=== PATIENT | male | born 1935 | race Caucasian/White ===

== ENCOUNTER → 2017-09-15 | Outpatient (CLI) | payer MEDICARE, BC | END | disposition home or self-care (01) | LOC: GMAJ 14:30 | PROVIDERS: ATTEND Family Medicine | DX: Z12.5 Encounter for screening for malignant neoplasm of prostate (principal) ==

== ENCOUNTER → 2017-12-10 | Outpatient (CLI) | payer MEDICARE, BC ==
--- NOTE | 2017-12-10 17:12 | MRI ---
EXAM DESCRIPTION: Lumbar Spine w/o Contrast : Magnetic Resonance Imaging. CLINICAL HISTORY: SPINAL STENOSIS WITH NEUROGENIC CLAUDICATION, LUMBAR AREA COMPARISON: Lumbar spine MRI 03/05/2008. TECHNIQUE: Multiplanar, multiple standard sequences, non contrast MRI, lumbar spine. FINDINGS: L5-S1: Disc desiccation and moderate posterior disc space loss. Grade 1 anterolisthesis. Bilateral foraminal stenosis and impingement of the exiting L5 nerves. This has progressed since the prior study. Advanced facet arthrosis bilaterally abutting the lateral thecal sac. Tiny posterior disc bulge. Bilateral L5 pars spondylolysis. Moderate canal narrowing. L4-5: Disc desiccation with posterior disc space narrowing. No significant bulge. Left facet arthrosis. Bilateral hypertrophied flavum ligaments. Moderate canal narrowing. Mild to moderate right foraminal narrowing with borderline left foraminal stenosis. L3-4: Disc desiccation anterior bulging. Posterior disc space loss with Modic type II endplate reactive changes in the midline and to the right of midline. Disc osteophyte complex resulting in right foraminal stenosis. Posterior disc osteophyte bulge 4 mm abutting the thecal sac. Bilateral facet arthrosis and flavum ligament hypertrophy and bilateral subarticular recess narrowing, abutting the bilateral descending L4 nerves. Mild canal stenosis. This has progressed since the prior study. L2-3: Disc desiccation anterior bulging anterior spurs and Modic type II endplate reactive changes. Posterior disc space narrowing and bulging disc osteophyte complex abutting the thecal sac more on the right. Bilateral facet arthrosis and ligament hypertrophy more on the left. Narrowing the bilateral subarticular recesses and abutting the bilateral descending L3 nerves. Mild canal stenosis. Progressed since the prior study. Left mild foraminal narrowing. Right side, Modic type II endplate reactive changes, disc osteophyte complex bulge into the foramen which is nearly stenotic and abutting the exiting right L2 nerve L1-2: Disc desiccation and disc space maintained. Tiny posterior bulge. Bilateral facet arthrosis and ligament hypertrophy. Bilateral mild to moderate foraminal narrowing. T12-L1: Disc desiccation anterior bulging and anterior Modic type II endplate reactive changes. Posterior disc bulge 3 mm abutting the thecal sac. Bilateral mild foraminal narrowing. Bilateral ligament hypertrophy and minimal facet arthrosis. Canal mildly narrow more on the left, due to hypertrophy ligaments. This is progressed since the prior study. Mild facet arthrosis. Conus terminates at this level.. L1-L4 levoscoliosis. Paravertebral soft tissues no muscular atrophy paraspinal muscles.. Normal marrow signal in the remaining vertebral bodies and the posterior elements. Vertebral bodies are not compressed at any level. IMPRESSION: 1. Grade 1 anterolisthesis L5-S1 with bilateral foraminal stenosis and impinging the exiting L5 nerves. This has progressed since the prior study. Bilateral L5 pars spondylolysis. 2. Borderline left foraminal stenosis at L4-5 which has progressed since the prior study, secondary to bulging disc and facet arthrosis. 3. Moderate spondylosis anteriorly at L3-4 and also to the right with right foraminal stenosis which is progressed since the prior study. Posterior midline disc osteophyte complex with mild canal stenosis subarticular recess narrowing and abutment of the descending L4 nerves. Progressed since the prior study. 4. Posterior disc osteophyte complex bulge at L2-3 abutting the thecal sac in the bilateral subarticular recesses and descending L3 nerves with mild canal stenosis. Progressed since prior study. Right side spondylosis and disc osteophyte complex abutting the exiting right L2 nerve with foramen nearly stenotic. 5. Posterior flavum ligament hypertrophy has progressed at T12-L1 level since the prior study with canal narrowing along with progressive posterior disc bulge. Electronically signed by: Edy Valdez MD 12/10/2017 5:11 PM CDT
== END ==
LOC: MRI 13:00
PROVIDERS: ATTEND Family Medicine
DX: M48.062 Spinal stenosis, lumbar region with neurogenic claudication (principal); M51.86 Other intervertebral disc disorders, lumbar region

== ENCOUNTER → 2018-02-07 | Outpatient (CLI) | payer MEDICARE, BC | LOC: GMAJS 18:19 | PROVIDERS: ATTEND Physician Assistant | DX: N39.0 Urinary tract infection, site not specified (principal) ==

== ENCOUNTER → 2018-05-16 | Outpatient (CLI) | payer MEDICARE, BC ==
--- NOTE | 2018-05-16 16:02 | MRI ---
EXAM DESCRIPTION: Brain w/o Contrast: MRI. CLINICAL HISTORY: DIZZINESS COMPARISON: None. TECHNIQUE: Multiplanar, high-field MRI unit, multiple diffusion sequences, multiple conventional sequences without contrast. FINDINGS: Bilateral confluent and multifocal hyperintense FLAIR and T2-weighted signal in the periventricular white matter and conroy-white matter junctions. Multifocal lesions are more peripheral. Relatively symmetric bilaterally. . No hemorrhage, no cerebral edema, no diffusion restriction.. Similar focus of hyperintense FLAIR signal in the posterior left basal ganglia. Normal signal in the brainstem and cerebellar hemispheres. No hemorrhage, no cerebral edema, no diffusion restriction.. Unusual focus of mixed signal in the extra-axial vertex near the junction of the right frontal and parietal lobes which is dark and blooming signal on the GRE images, hyperintense on T2 sequence, the B 1000 and SBO diffusion sequences, and mixed signal on FLAIR sequences. Concordance of the diffusion and non-diffusion sequences with no diffusion restriction. Cortical sulci, ventricles, and other CSF spaces, and the subdural spaces show age-related changes, and otherwise unremarkable, except as noted above. No effacement or displacement. No midline shift. No extra-axial hemorrhage. Unremarkable flow signal void in the major vessels of the [place], and the venous sinuses. IACs are symmetric bilaterally. Normal signal in the bilateral mastoid air cells. No mass effect in the bilateral cerebellopontine angles. Pituitary gland occupies lower half of the sella. Base of the cerebellar tonsils is above the foramen magnum. Minimal mucoperiosteal thickening diffusely in the paranasal sinuses. The bony calvarium is intact. IMPRESSION: 1. Age-related changes in the cortical conroy matter, and in the subcortical white matter and periventricular white matter along with cerebral microvascular disease. No hemorrhage, no cerebral edema, no diffusion restriction. 2. Questionable lesion possibly extra-axial in the vertex of the junction of the right frontal and right parietal lobes parasagittal. Possibly a vascular malformation. No hemorrhage or mass effect. 3. Diffusion restriction elsewhere is unremarkable with no evidence for acute or subacute infarction. 4. Minimal paranasal sinusitis. Electronically signed by: Edy Valdez MD 05/16/2018 4:00 PM [facility]
== END ==
LOC: MRI 10:35
PROVIDERS: ATTEND Family Medicine
DX: R42 Dizziness and giddiness (principal); J01.90 Acute sinusitis, unspecified

== ENCOUNTER → 2018-08-10 | Outpatient (CLI) | payer MEDICARE, BC ==
--- NOTE | 2018-08-11 11:36 | MRI ---
Study: MRI of the Right Hip. Indication: R10.31 Technique: Multiplanar, multi sequence MRI of the right hip was obtained without intravenous contrast. Comparison: None. Findings: No acute fracture or osteonecrosis of the right hip. Patchy areas of grade 3-4 chondral loss throughout the anterior superior and superior aspects of the acetabulum with areas of cortical remodeling and subchondral cystic change. Subtle grade 4 chondrosis and subchondral marrow change of the superomedial margin femoral head as well. Grade 3 chondral thinning throughout the remainder of the joint. Small joint line osteophyte. Degenerative tearing throughout the anterior superior and superior aspects of the right hip labrum. Tiny joint effusion. Lower lumbar disc disease. Prostatomegaly. Mild pubic symphysis osteoarthritis. No high-grade tear of the visualized hip tendons. At least moderate left hip osteoarthritis present. Impression: Moderate to severe right hip osteoarthritis with tiny joint effusion and labral tearing. No acute fracture or osteonecrosis. Prostatomegaly. Correlation with PSA recommended. Additional findings as above. Electronically signed by: Tan Pulliam MD 08/11/2018 11:33 AM [facility]
== END ==
LOC: MRI 14:06
PROVIDERS: ATTEND Family Medicine
DX: M16.11 Unilateral primary osteoarthritis, right hip (principal); M16.12 Unilateral primary osteoarthritis, left hip; N40.0 Benign prostatic hyperplasia without lower urinary tract symptoms; M51.36 Other intervertebral disc degeneration, lumbar region

== ENCOUNTER → 2018-10-12 | Outpatient (CLI) | payer MEDICARE, BC ==
--- NOTE | 2018-10-12 15:02 | MRI ---
EXAM DESCRIPTION: Brain w/oContrast CLINICAL HISTORY: DEMENTIA COMPARISON: Previous MRI of the brain May 16, 2018 TECHNIQUE: Non contrast MRI of the brain is performed according to our usual protocol including multiplanar multi sequence technique. FINDINGS: Sagittal T1 images show intact corpus callosum. Degenerative thickening of soft tissue around the dens mildly displaces the lower mandible and upper cervical cord posteriorly as on previous study. Normal pituitary gland with normal T1 appearance of the lucy and medulla and upper cervical cord. Normal signal intensity within the clivus and calvarium. Axial T2 fat sat images reveal preservation of intracranial vascular flow voids. Normal conroy matter T2 signal intensity. Large ventricles and sulci are consistent with age-related cerebral volume loss. The globes appear intact and symmetrical. No abnormal fluid signal in the paranasal sinuses, tympanic cavities or mastoid air cells. Axial flair images show confluent increased signal intensity in the white matter around the ventricles consistent with chronic microvascular ischemic changes. Few scattered punctate foci of similar nature in the subcortical white matter. Diffusion weighted images show decreased signal intensity in the right parasagittal high posterior frontal conroy matter lesion seen on previous study consistent with focal ischemia developing into gliosis. ADC mapping is faintly positive here as well. Axial T1 images show normal conroy-white matter differentiation. No high signal intensity hemorrhagic lesion of the brain parenchyma. No subdural hematoma. Axial susceptibility weighted images are negative for focal signal loss to suggest abnormal brain parenchymal calcification or hemosiderin deposition. IMPRESSION: No acute intracranial pathologic process. Resolving microvascular ischemic focus in the high right posterior frontal conroy matter. Senescent brain with chronic microvascular ischemic changes. Electronically signed by: Rick Reyes MD 10/12/2018 3:00 PM CDT
== END ==
LOC: MRI 13:00
PROVIDERS: ATTEND Family Medicine
DX: F03.90 Unspecified dementia, unspecified severity, without behavioral disturbance, psychotic disturbance, mood disturbance, and anxiety (principal); I67.82 Cerebral ischemia

== ENCOUNTER 2019-02-19 23:23 | Emergency (ER) | payer MEDICARE, BC ==
--- NOTE | 2019-02-20 00:03 | RAD ---
EXAM DESCRIPTION: XR Chest, 1 View CLINICAL HISTORY: 83 years Male unconscious TECHNIQUE: One view of the chest. COMPARISON: Correlation is made with the prior CT scan dated 07/17/2015. FINDINGS: The lungs are clear without focal consolidation, effusion, or pneumothorax. The aorta atherosclerosis again seen. The cardiomediastinal silhouette and central pulmonary vasculature are otherwise normal. Surgical clips in the neck. Eventration of the left hemidiaphragm. No acute osseous abnormalities. IMPRESSION: No acute cardiopulmonary abnormalities. Electronically signed by: Ana Levine MD 02/20/2019 12:02 AM CDT
[2019-02-20] MEDS: SODIUM CHLORIDE 0.9% (FLUSH) 10 ML SYG IV PRN (00:07)
[2019-02-20] MEDS: SODIUM CHLORIDE 0.9% 1000ML 1,000 ML IVS ONE (00:07)
--- NOTE | 2019-02-20 00:09 | CT ---
PROCEDURE: CT Head CLINICAL HISTORY: 83 years Male syncope TECHNIQUE: Contiguous axial CT images obtained through the brain without IV contrast. Coronal and sagittal reformatted images also provided. This exam was performed according to our department optimization program which includes automated exposure control, adjustment of the mA and/or kv according to patient size and/or use of iterative reconstruction technique. COMPARISON: Correlation is made with the prior MRI dated 10/12/2018. FINDINGS: There is no intracranial hemorrhage, extraaxial collection, or evidence of acute transcortical infarction. Patchy areas of low attenuation within the periventricular and subcortical white matter are most compatible with chronic microvascular disease. Stable moderate diffuse volume loss without mass effect or midline shift. Vascular calcifications are noted. No lesion of the skull base or calvarium is identified. The paranasal sinuses and mastoid air cells are clear. IMPRESSION: No acute intracranial abnormality. Patchy chronic microvascular changes and moderate diffuse volume loss. Electronically signed by: Ana Levine MD 02/20/2019 12:07 AM CDT
--- NOTE | 2019-02-20 00:20 | ED.PDOC ---
History of Present Illness - General Chief Complaint: Syncope/Near Syncope Stated Complaint: syncopal episode Time Seen by Provider: 02/19/19 23:36 - History of Present Illness Initial Comments: Pt says that all of a sudden he felt weak while talking and was standing so he sat down and then lie down on the floor , EMS was called and found out low blood pressure , started IVF , currently feeling better , no sob or chest pain or headaches or seizure or nausea or vomiting or fever or chills Allergies/Adverse Reactions: Allergies Hydrocodone Allergy (Verified 11/03/18 15:23) Penicillins Allergy (Verified 11/03/18 15:23) NSAIDs Adverse Reaction (Verified 11/03/18 15:23) Home Medications: Ambulatory Orders Chlordiazepoxide HCl 10 mg PO BID 11/03/18 Citalopram Hydrobromide [Celexa] 20 mg PO DAILY 11/03/18 Clonidine HCl 0.3 mg PO Q6H 11/03/18 Furosemide Tab [Lasix Tab] 40 mg PO QAM 11/03/18 Insulin Glargine [Lantus Solostar] 26 unit SC DAILY 11/03/18 Isosorbide Mononitrate [Isosorbide Mononitrate ER] 60 mg PO DAILY #30 tab 11/03/18 Levetiracetam 500 mg PO DAILY 11/03/18 Pravastatin Sodium 10 mg PO BEDTIME 11/03/18 Spironolactone 25 mg PO DAILY #30 tab 11/03/18 Clopidogrel Bisulfate 02/20/19 Donepezil Hydrochloride [Donepezil HCl] 02/20/19 Epinephrine (Anaphylaxis) [Epinephrine] 02/20/19 Memantine HCl 02/20/19 Nifedipine [Nifedipine ER] 60 mg PO 02/20/19 Olmesartan Medoxomil 02/20/19 Review of Systems - Review of Systems Constitutional: States: no symptoms reported EENTM: States: no symptoms reported Respiratory: States: no symptoms reported Cardiology: States: see HPI Gastrointestinal/Abdominal: States: see HPI Genitourinary: States: no symptoms reported Skin: States: no symptoms reported Neurological: States: weakness Endocrine: States: no symptoms reported Hematologic/Lymphatic: States: no symptoms reported All other Systems: Reviewed and Negative Past Medical History (General) - Patient Medical History Hx Cardiac Disorders: Yes Hx Congestive Heart Failure: Yes Hx Hypertension: Yes Hx Diabetes: Yes Hx Cancer: No Hx Hepatitis C: No - Vaccination History Hx Tetanus, Diphtheria Vaccination: No Hx Influenza Vaccination: Yes Hx Pneumococcal Vaccination: Yes - Social History Hx Tobacco Use: No Hx Chewing Tobacco Use: No Hx Alcohol Use: No Hx Substance Use: No Hx Substance Use Treatment: No Hx Depression: No - Activities of Daily Living Residential/Assisted Living (if applicable):: [facility] Physical Exam - Physical Exam General Appearance: Alert, Comfortable, Well Groomed, Well Hydrated, Well No urished Eyes, Ears, Nose, Throat Exam: PERRL/EOMI, normal ENT inspection, TMs normal Neck: non-tender, full range of motion, supple, normal inspection Cardiovascular/Respiratory: no M/R/G, irregularly irregular Gastrointestinal/Abdominal: non tender, soft, no organomegaly Back Exam: normal inspection, no CVA tenderness Mental Status: alert, oriented x 3 president ergonomic consulting Exam: normal hearing, normal speech, PERRL - No sensory or neuro deficit Skin Exam: normal color, warm/dry Lymphatic: no adenopathy Progress - Progress Progress: 02/20/19 00:22 02/19/19 23:29 Telemetry .ONCE B-TYPE NATRIURETIC PEPTIDE/BNP Stat CARDIAC PANEL,ER Stat HEPATIC FUNCTION PANEL Stat D-DIMER,QUANTITATIVE Stat EKG Stat Pulse Ox Stat 02/19/19 23:30 Pulse Oximetry Assessment DAILY 02/19/19 23:36 Sodium Chloride 0.9% (Flush) [Saline Flush Syringe] 10 ml IV PRN PRN 02/19/19 23:37 IV Care:Saline Lock per Protoc QSHIFT Pulse Ox Stat 02/19/19 23:38 Pulse Oximetry Assessment DAILY 02/19/19 23:39 Sodium Chloride 0.9% 1000ML [Ns 1000 ml] 1,000 ml IVS ONCE Laboratory Results - last 24 hr 02/19/19 23:29 WBC 7.2 RBC 4.83 Hgb 14.9 Hct 44.4 MCV 91.9 MCH 30.9 MCHC 33.7 RDW 13.8 Absolute Neuts (auto) 2.80 Absolute Lymphs (auto) 3.40 Absolute Monos (auto) 0.60 Absolute Eos (auto) 0.30 Absolute Basos (auto) 0.00 Neutrophils % 39.7 L Lymphocytes % 47.4 Monocytes % 7.9 Eosinophils % 4.6 Basophils % 0.4 Sodium 134 L Potassium 4.0 Chloride 104 Carbon Dioxide 21 Anion Gap 13.0 BUN 38 H Creatinine 2.02 H BUN/Creatinine Ratio 18.8 Random Glucose 186 H Serum Osmolality 282.1 Calcium 8.8 Magnesium 2.1 Total Bilirubin 0.4 Direct Bilirubin < 0.1 Indirect Bilirubin 0.3 AST 19 ALT 17 Alkaline Phosphatase 56 Creatine Kinase 84 CK-MB (CK-2) 8.1 H* CK-MB (CK-2) % Not Reportable Troponin I 0.49 H* B-Natriuretic Peptide 189.0 H Serum Total Protein 7.0 Albumin 3.7 - EKG/XRAY/CT EKG: Fibrillation, nonspecific ST T wave Chg Xray Comments: Normal . CT: Normal Departure - Departure Clinical Impression: Myocardial infarction Qualifiers: Myocardial infarction type: non-ST elevation myocardial infarction Qualified Code(s): I21.4 - Non-ST elevation (NSTEMI) myocardial infarction Time of Disposition: 00:26 Disposition: Transfer to Hospital Condition: Fair Departure Forms: ED Discharge - Pt. Copy, Patient Portal Self Enrollment Referrals: Mike Tolliver MD [Primary Care Provider] - 1-2 Weeks Home Medications: Ambulatory Orders Chlordiazepoxide HCl 10 mg PO BID 11/03/18 Citalopram Hydrobromide [Celexa] 20 mg PO DAILY 11/03/18 Clonidine HCl 0.3 mg PO Q6H 11/03/18 Furosemide Tab [Lasix Tab] 40 mg PO QAM 11/03/18 Insulin Glargine [Lantus Solostar] 26 unit SC DAILY 11/03/18 Isosorbide Mononitrate [Isosorbide Mononitrate ER] 60 mg PO DAILY #30 tab 11/03/18 Levetiracetam 500 mg PO DAILY 11/03/18 Pravastatin Sodium 10 mg PO BEDTIME 11/03/18 Spironolactone 25 mg PO DAILY #30 tab 11/03/18 Clopidogrel Bisulfate 02/20/19 Donepezil Hydrochloride [Donepezil HCl] 02/20/19 Epinephrine (Anaphylaxis) [Epinephrine] 02/20/19 Memantine HCl 02/20/19 Nifedipine [Nifedipine ER] 60 mg PO 02/20/19 Olmesartan Medoxomil 02/20/19 Transfer to Outside Facility - Transfer Information Accepting Provider:: Dr Wright Accepting Facility: [facility]
[2019-02-20] MEDS ORDERED: ENOXAPARIN SODIUM 80 MG/0.8 ML SYG SUBCU ONE (00:33)
[2019-02-20] MEDS ORDERED: ASPIRIN TABLET 325 MG TAB ONE (00:34)
[2019-02-20] MEDS: ASPIRIN (ENTERIC COATED) 325 MG TAB PO ONE (00:35)
[2019-02-20 01:08] VITALS: BP 118/70; TEMP 97; O2SAT 93
== END 2019-02-20 01:29 | disposition short-term general hospital (02) ==
LOC: ER 23:23
DX: I21.4 Non-ST elevation (NSTEMI) myocardial infarction (principal); R55 Syncope and collapse; I49.8 Other specified cardiac arrhythmias; I50.9 Heart failure, unspecified; I11.0 Hypertensive heart disease with heart failure; E11.9 Type 2 diabetes mellitus without complications; Z79.899 Other long term (current) drug therapy; Z88.5 Allergy status to narcotic agent; Z88.6 Allergy status to analgesic agent; Z88.0 Allergy status to penicillin; Z79.4 Long term (current) use of insulin
CPT/HCPCS: 70450; 71045; 80048; 80076; 82550; 82553; 83880; 84484; 85025; 85379; 85610; 85730; 93005; J1650; J7030

== ENCOUNTER 2019-02-23 18:59 | Observation (INO) | payer MEDICARE, BC ==
--- NOTE | 2019-02-23 19:49 | RAD ---
EXAM DESCRIPTION: Single view of the chest CLINICAL HISTORY: mild confusion COMPARISON: 02/19/2019 FINDINGS: Single frontal view of the chest. Cardiomediastinal silhouette: Normal size and contour. Lungs: Linear right basilar opacities likely representing subsegmental atelectasis. No pneumothorax or pleural effusion. Low lung volumes. Bones: No acute osseous abnormality. Postoperative change in the neck. Upper abdomen: No abnormality identified. IMPRESSION: 1. No acute pulmonary process identified. Electronically signed by: Bryant Bruner 02/23/2019 7:48 PM CDT
[2019-02-23] MEDS ORDERED: INSULIN LISPRO 100 UNITS/ML PEN SUBCU ONE (20:08)
[2019-02-23] MEDS ORDERED: SODIUM CHLORIDE 0.9% 1000ML 500 ML IVS ONE (20:10)
--- NOTE | 2019-02-23 20:22 | ED.PDOC ---
History of Present Illness - General Chief Complaint: General Stated Complaint: lethargic, BS elevated, altered Time Seen by Provider: 02/23/19 19:02 Source: patient Exam Limitations: no limitations - History of Present Illness Initial Comments: the patient is an 83-year-old male brought into the emergency room from his long-term care facility. He actually just arrived back there yesterday from [facility]. He had been sent to [facility] couple of days prior for a non-ST elevation myocardial infarction. He apparently did not get a catheterization. He is not really sure what they found on him. He was sent up here from the shelter secondary to some mild confusion and being very sleepy. He was also getting some elevated blood pressures there and his blood sugars were a little higher than normal in the 200s. No focal neurological changes. The patient has a flat affect and does appear depressed. He does have bruising from the blood thinner shots from the hospital stay. I see no evidence evidence of any definite catheterization site. He is not short of breath. He has not fallen. He does feel weak in general. Timing/Duration: unsure Severity: mild Improving Factors: nothing Worsening Factors: nothing Associated Symptoms: loss of appetite, malaise Allergies/Adverse Reactions: Allergies Hydrocodone Allergy (Verified 11/03/18 15:23) Penicillins Allergy (Verified 11/03/18 15:23) NSAIDs Adverse Reaction (Verified 11/03/18 15:23) Home Medications: Ambulatory Orders Chlordiazepoxide HCl 10 mg PO BID 11/03/18 Citalopram Hydrobromide [Celexa] 20 mg PO DAILY 11/03/18 Clonidine HCl 0.3 mg PO Q6H 11/03/18 Furosemide Tab [Lasix Tab] 40 mg PO QAM 11/03/18 Insulin Glargine [Lantus Solostar] 26 unit SC DAILY 11/03/18 Isosorbide Mononitrate [Isosorbide Mononitrate ER] 60 mg PO DAILY #30 tab 11/03/18 Levetiracetam 500 mg PO DAILY 11/03/18 Pravastatin Sodium 10 mg PO BEDTIME 11/03/18 Spironolactone 25 mg PO DAILY #30 tab 11/03/18 Clopidogrel Bisulfate 02/20/19 Donepezil Hydrochloride [Donepezil HCl] 02/20/19 Epinephrine (Anaphylaxis) [Epinephrine] 02/20/19 Memantine HCl 02/20/19 Nifedipine [Nifedipine ER] 60 mg PO 02/20/19 Olmesartan Medoxomil 02/20/19 Review of Systems - Review of Systems Constitutional: States: malaise, weakness - generalized EENTM: States: no symptoms reported Respiratory: States: no symptoms reported Cardiology: States: no symptoms reported Gastrointestinal/Abdominal: States: no symptoms reported Genitourinary: States: no symptoms reported Musculoskeletal: States: no symptoms reported Skin: States: no symptoms reported Neurological: States: see HPI Endocrine: States: no symptoms reported All other Systems: No Change from Baseline Past Medical History (General) - Patient Medical History Hx Cardiac Disorders: Yes Hx Congestive Heart Failure: Yes Hx Hypertension: Yes Hx Diabetes: Yes 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 Hx Hepatitis C: No Surgical History: other - Vaccination History Hx Tetanus, Diphtheria Vaccination: No Hx Influenza Vaccination: Yes Hx Pneumococcal Vaccination: Yes - Social History Hx Tobacco Use: No Hx Chewing Tobacco Use: No Hx Alcohol Use: No Hx Substance Use: No Hx Substance Use Treatment: No Hx Depression: No - Activities of Daily Living Residential/Assisted Living (if applicable):: [facility] Family Medical History - Family History Mother Family History: Unknown Living Status: Physical Exam - Physical Exam General Appearance: Alert, Comfortable, Frail, No apparent distress Eye Exam: bilateral normal Ears, Nose, Throat: hearing grossly normal - chronically decreased bilaterally, normal ENT inspection, normal pharynx Neck: non-tender Respiratory: lungs clear, normal breath sounds, no respiratory distress, no accessory muscle use Cardiovascular/Chest: normal peripheral pulses, no edema, other - regular rate. Irregular rhythm. 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 The patient has recently had a non-ST elevation myocardial infarction. The patient does have some mild hypertension and some moderate hyperglycemia. Blood pressures have improved with the patient relaxing. The patient did receive a dose of insulin for the hyperglycemia whiched to be followed. Cardiac enzymes here are essentially the same as several days ago which is not surprising. He is asymptomatic from a cardiac standpoint. He is going to be admitted for more widely enzymes to make sure there is no significant regression of cardiac disease. Tomorrow his phlebotomist lab assistant can be contacted to see what was done at [facility] and see what needs to be done in the near future for the patient. Admitting for continued care overnight. Mental status does appear to be clearing compared to what was described from the shelter. 02/23/19 20:34 day pelaez [id number] - Results/Orders Results/Orders: EKG shows atrial flutter that is rate controlled at 70 bpm. Normal R-wave progression. No obvious definitive ST segment or T-wave changes indicative of acute ischemia. EKG is essentially unchanged from 3 days prior. Chest x-ray shows no acute changes. No obvious fluid overload or new infiltrates. Laboratory Tests 02/23/19 02/23/19 02/23/19 19:27 19:27 19:27 WBC 7.1 RBC 4.89 Hgb 14.8 Hct 44.7 MCV 91.5 MCH 30.3 MCHC 33.2 RDW 14.1 Plt Count 253 MPV 8.5 Absolute Neuts (auto) 5.40 Absolute Lymphs (auto) 1.20 Absolute Monos (auto) 0.30 Absolute Eos (auto) 0.00 Absolute Basos (auto) 0.10 Neutrophils % 76.6 Lymphocytes % 17.0 L Monocytes % 4.9 Eosinophils % 0.6 L Basophils % 0.9 PT 9.9 INR 0.99 PTT (SP) 26.7 Sodium 137 Potassium 4.9 Chloride 105 Carbon Dioxide 23 Anion Gap 13.9 BUN 43 H Creatinine 2.49 H BUN/Creatinine Ratio 17.3 Random Glucose 293 H Serum Osmolality 295.5 H Lactic Acid Calcium 8.9 Magnesium 2.1 Total Bilirubin 0.5 AST 34 ALT 34 Alkaline Phosphatase 61 Creatine Kinase 61 CK-MB (CK-2) 6.4 H* CK-MB (CK-2) % Not Reportable Troponin I 0.48 H* B-Natriuretic Peptide 333.0 H* Serum Total Protein 7.4 Albumin 3.9 Globulin 3.5 Albumin/Globulin Ratio 1.1 Urine Color Urine Appearance Urine pH Ur Specific [place] Urine Protein Urine Glucose (UA) Urine Ketones Urine Blood Urine Nitrite Urine Bilirubin Urine Urobilinogen Ur Leukocyte Esterase Urine RBC Urine WBC Ur Epithelial Cells Urine Bacteria Hyaline Casts Urine Mucus 02/23/19 02/23/19 19:27 19:47 WBC RBC Hgb Hct MCV MCH MCHC RDW Plt Count MPV Absolute Neuts (auto) Absolute Lymphs (auto) Absolute Monos (auto) Absolute Eos (auto) Absolute Basos (auto) Neutrophils % Lymphocytes % Monocytes % Eosinophils % Basophils % PT INR PTT (SP) Sodium Potassium Chloride Carbon Dioxide Anion Gap BUN Creatinine BUN/Creatinine Ratio Random Glucose Serum Osmolality Lactic Acid 1.1 Calcium Magnesium Total Bilirubin AST ALT Alkaline Phosphatase Creatine Kinase CK-MB (CK-2) CK-MB (CK-2) % Troponin I B-Natriuretic Peptide Serum Total Protein Albumin Globulin Albumin/Globulin Ratio Urine Color Yellow Urine Appearance Clear Urine pH 5.0 Ur Specific [place] 1.015 Urine Protein Trace Urine Glucose (UA) 100 H Urine Ketones Negative Urine Blood Negative Urine Nitrite Negative Urine Bilirubin Negative Urine Urobilinogen 0.2 Ur Leukocyte Esterase Negative Urine RBC 0 Urine WBC 0-1 Ur Epithelial Cells 0 Urine Bacteria 0 Hyaline Casts 0-1 Urine Mucus Trace Departure - Departure Clinical Impression: Delirium, Generalized weakness, Lethargy Coronary artery disease Qualifiers: Coronary Disease-Associated Artery/Lesion type: unspecified vessel or lesion type [place] vs. transplanted heart: torres martinez heart Associated angina: without angina Qualified Code(s): I25.10 - Atherosclerotic heart disease of torres martinez coronary artery without angina pectoris Disposition: Admit Patient Condition: Fair Departure Forms: ED Discharge - Pt. Copy, Patient Portal Self Enrollment Referrals: Mike Tolliver MD [Primary Care Provider] - 1-2 Weeks Home Medications: Ambulatory Orders Chlordiazepoxide HCl 10 mg PO BID 11/03/18 Citalopram Hydrobromide [Celexa] 20 mg PO DAILY 11/03/18 Clonidine HCl 0.3 mg PO Q6H 11/03/18 Furosemide Tab [Lasix Tab] 40 mg PO QAM 11/03/18 Insulin Glargine [Lantus Solostar] 26 unit SC DAILY 11/03/18 Isosorbide Mononitrate [Isosorbide Mononitrate ER] 60 mg PO DAILY #30 tab 11/03/18 Levetiracetam 500 mg PO DAILY 11/03/18 Pravastatin Sodium 10 mg PO BEDTIME 11/03/18 Spironolactone 25 mg PO DAILY #30 tab 11/03/18 Clopidogrel Bisulfate 02/20/19 Donepezil Hydrochloride [Donepezil HCl] 02/20/19 Epinephrine (Anaphylaxis) [Epinephrine] 02/20/19 Memantine HCl 02/20/19 Nifedipine [Nifedipine ER] 60 mg PO 02/20/19 Olmesartan Medoxomil 02/20/19 Decision To Admit - Decistion To Admit Decision to Admit Reason: Medical Nature Decision to Admit Date: 02/23/19 Decision to Admit Time: 20:33
[2019-02-23] MEDS ORDERED: NITROGLYCERIN 0.4 MG 25 EA TAB SL PRN (22:29)
[2019-02-23] MEDS ORDERED: MORPHINE SULFATE INJ 10 MG/ML VIAL IV PRN (22:29)
[2019-02-23] MEDS ORDERED: ACETAMINOPHEN 325 MG TAB PO PRN (22:29)
[2019-02-23] MEDS ORDERED: SODIUM CHLORIDE 0.9% (FLUSH) 10 ML SYG IV PRN (22:29)
[2019-02-23] MEDS ORDERED: IV SET AND CAP CHANGE INJ INJ SCH (22:30)
[2019-02-23] MEDS ORDERED: DEXTROSE 50% 25 GM/50 ML SYG IV PRN (22:36)
[2019-02-23] MEDS ORDERED: GLUCAGON INJ 1 MG VIAL SUBCU PRN (22:36)
[2019-02-24 05:53] VITALS: BP 184/81; TEMP 98
[2019-02-24] MEDS ORDERED: PANTOPRAZOLE SODIUM TAB 40 MG PO SCH (06:30)
[2019-02-24] MEDS ORDERED: INSULIN LISPRO 100 UNITS/ML PEN SUBCU SCH (07:00)
[2019-02-24] MEDS ORDERED: SODIUM CHLORIDE 0.9% (FLUSH) 10 ML SYG IV SCH (09:00)
[2019-02-24] MEDS ORDERED: APIXABAN 5 MG TAB PO SCH (09:30)
[2019-02-24] MEDS ORDERED: CITALOPRAM HBR 20 MG TAB PO SCH (09:30)
[2019-02-24] MEDS ORDERED: ISOSORBIDE MONONITRATE (IMDUR) 30 MG TAB PO SCH (09:30)
[2019-02-24] MEDS ORDERED: FUROSEMIDE 40 MG TAB PO SCH (09:30)
[2019-02-24] MEDS ORDERED: DONEPEZIL HCL 5 MG TAB PO SCH (09:30)
[2019-02-24] MEDS ORDERED: amLODIPine BESYLATE 5 MG TAB PO SCH (09:30)
[2019-02-24] MEDS ORDERED: MEMANTINE 10 MG TAB PO SCH (09:30)
[2019-02-24] MEDS ORDERED: CARVEDILOL 12.5 MG TAB PO SCH (09:30)
[2019-02-24] MEDS ORDERED: SPIRONOLACTONE 25 MG TAB PO SCH (09:30)
[2019-02-24] MEDS ORDERED: levETIRAcetam 250 MG TAB PO SCH (09:30)
--- NOTE | 2019-02-24 11:16 | SSS ---
SUPERVISING PHYSICIAN: Mike Tolliver MD DATE OF ADMISSION: 02/23/19 DATE OF DISCHARGE: 02/24/19 DISCHARGE DIAGNOSIS: 1. Change in mental status. 2. Recent non-ST elevation myocardial infarction. He was just discharged from [facility] on 02/22/2019 where he received intervention. He continues to have an elevated troponin, but no current chest pain. 3. Chronic renal insufficiency with a baseline creatinine of 1.8. His admitting creatinine was 2.4 and today it is 1.99. 4. Diabetes mellitus, type 2. 5. Mild dementia. 6. Hypertension. HISTORY OF PRESENT ILLNESS: This is an 83-year-old male patient who was just discharged from [facility] on 02/22/19 for a non-STEMI. He had been sent to [facility] on 02/19/19 and was re-admitted back to [facility] after that. Over the next 24 hours, there was a noticeable change in mental status. He became lethargic with some elevated blood pressures and blood sugars. It was reported that there were no focal neurologic changes, but he had a flat affect and was depressed. It is to be noted that his approximately 4 or 5 months ago. In the Emergency Room, his initial vital signs showed temperature 97.2, heart rate 62, blood pressure 175/83, respiratory rate 16, O2 saturation 97% on room air. His labs showed an unremarkable CBC with electrolytes within normal limits. BUN 43, creatinine 2.49, lactic acid 1.1. Liver enzymes were within normal limits. Troponin was 0.48 with CK-MB of 6.4 and BNP 333. Urinalysis was unremarkable. Chest x-ray shows no acute pulmonary process identified. There were no changes on his EKG. The patient had no complaints of chest pain. I was called for a 24 hour observation admission. PAST MEDICAL HISTORY: 1. Chronic renal insufficiency with a baseline creatinine of about 1.8. 2. Skin cancer with removals. 3. Chronic constipation. 4. Diabetes mellitus, type 2. 5. Hyperlipidemia. 6. Hypertension. 7. Mild dementia. PAST SURGICAL HISTORY: 1. Multiple skin cancer removals. OUTPATIENT MEDICATIONS: 1. Acetaminophen. 2. Aspirin. 3. Cetirizine. 4. Clonidine. 5. Epinephrine. 6. Lantus insulin. 7. Humalog insulin. 8. Nitroglycerin. 9. Olmesartan. 10. Amlodipine. 11. Eliquis. 12. Carvedilol. 13. Celexa. 14. Donepezil. 15. Furosemide. 16. Isosorbide mononitrate. 17. Levetiracetam. 18. Memantine. 19. Spironolactone. ALLERGIES: NO KNOWN DRUG ALLERGIES. SOCIAL HISTORY: He lives at [facility]. He is recently . He denies any smoking, drinking or illicit drug use. REVIEW OF SYSTEMS: Negative except as per history of present illness. PHYSICAL EXAMINATION: GENERAL: This is an 83-year-old male patient sitting up in his hospital bed. He is in no acute distress. HEENT: Normocephalic, atraumatic. Pupils are equal and reactive. Oropharynx is clear. NECK: Supple without mass. RESPIRATORY: Essentially clear to auscultation bilaterally. CHEST: There is equal rise and fall of the chest with inspiration and expiration. CARDIOVASCULAR: Regular rate and rhythm. GASTROINTESTINAL: Abdomen is soft, nondistended, nontender. Bowel sounds are positive. EXTREMITIES: No cyanosis, clubbing or edema. NEUROLOGIC: Awake, alert and oriented times three. Cranial nerves II-XII are grossly intact. SKIN: Warm and dry. He does have some bruising from previous hospital stay. LABORATORY: Labs and films are as per history of present illness. HOSPITAL COURSE: The patient was placed in observation in the hospital. He had no further complaints of chest pain, shortness of breath, nausea or vomiting. There was no diaphoresis. There were no changes on his EKG. His neuro checks remained stable. His cardiac enzymes slowly and marginally improved, but they did improve and he will be discharged back to [facility] today. DISCHARGE PLAN: The patient will be discharged to [facility] today in stable condition. He is to resume his previous diet and increase his activity as tolerated. It would be helpful to get a physical therapy referral. He is to followup with Dr. Michaels within one to two weeks. He is to resume his previous medications. There have been no medications changed or added. He is to call Dr. Michaels's office or return to the hospital for any problems or complications. DISCHARGE MEDICATIONS: 1. Levetiracetam. 2. Lantus insulin. 3. Lasix. 4. Clonidine. 5. Celexa. 6. Isosorbide mononitrate. 7. Spironolactone. 8. Olmesartan. 9. Memantine. 10. Epinephrine. 11. Donepezil. 12. Cetirizine. 13. Eliquis. 14. Nitroglycerin. 15. Humalog insulin. 16. Coreg. 17. Aspirin. 18. Amlodipine. 19. Acetaminophen. #[id number] [facility]
[2019-02-24 11:17] VITALS: O2SAT 93
== END 2019-02-24 09:45 | disposition home or self-care (01) ==
LOC: ER 18:59 → MS 21:50
PROVIDERS: ADMIT Nurse Practitioner Acute Care; ATTEND Nurse Practitioner Acute Care
DX: R41.82 Altered mental status, unspecified (principal); I21.4 Non-ST elevation (NSTEMI) myocardial infarction; E11.65 Type 2 diabetes mellitus with hyperglycemia; I12.9 Hypertensive chronic kidney disease with stage 1 through stage 4 chronic kidney disease, or unspecified chronic kidney disease; E11.22 Type 2 diabetes mellitus with diabetic chronic kidney disease; N18.9 Chronic kidney disease, unspecified; F03.90 Unspecified dementia, unspecified severity, without behavioral disturbance, psychotic disturbance, mood disturbance, and anxiety; I25.10 Atherosclerotic heart disease of native coronary artery without angina pectoris; E78.5 Hyperlipidemia, unspecified; Z79.82 Long term (current) use of aspirin; Z79.4 Long term (current) use of insulin; Z79.01 Long term (current) use of anticoagulants; Z79.02 Long term (current) use of antithrombotics/antiplatelets; Z79.899 Other long term (current) drug therapy; Z85.828 Personal history of other malignant neoplasm of skin; Z63.4 Disappearance and death of family member; Z88.5 Allergy status to narcotic agent; Z88.0 Allergy status to penicillin; Z88.6 Allergy status to analgesic agent
CPT/HCPCS: 96372 ×2; J1815 ×2; 82553 ×3; 80053 ×2; 82948; 80061; 36415 ×3; 81001; 85025 ×2; 82550 ×3; 83735 ×2; 85730; 85610; 84484 ×3; 83880; 36416; 83605; 71045; 94760 ×2; 99285; 93005 ×3

== ENCOUNTER 2019-03-02 05:56 | Observation (INO) | payer MEDICARE, BC ==
--- NOTE | 2019-03-02 06:30 | ED.PDOC ---
History of Present Illness - General Source: patient, RN notes reviewed, Vital Signs reviewed, EMS notes reviewed Exam Limitations: no limitations - History of Present Illness Initial Comments: Pt sent from [facility] because the pt became agitated and was "talking to people who weren't there". Pt c/o right shoulder pain. Pt denies fall/fever/chills. No n/v/d/dizziness/MAC. Timing/Duration: 1-3 hours Severity: moderate Improving Factors: nothing Worsening Factors: nothing Associated Symptoms: denies symptoms <Boo Rosales - Last Filed: 03/02/19 06:35> <MARCUS WILLIAM - Last Filed: 03/02/19 10:28> - General Chief Complaint: Neuro Symptoms/Deficits Stated Complaint: delusional- "seeing people" Time Seen by Provider: 03/02/19 06:25 - History of Present Illness Allergies/Adverse Reactions: Allergies Hydrocodone Allergy (Verified 11/03/18 15:23) Penicillins Allergy (Verified 11/03/18 15:23) NSAIDs Adverse Reaction (Verified 11/03/18 15:23) Home Medications: Ambulatory Orders Citalopram Hydrobromide [Celexa] 20 mg PO DAILY 11/03/18 Clonidine HCl 0.3 mg PO Q6H PRN 11/03/18 Furosemide Tab [Lasix Tab] 20 mg PO QAM 11/03/18 Insulin Glargine [Lantus Solostar] 20 unit SC BEDTIME 11/03/18 Isosorbide Mononitrate [Isosorbide Mononitrate ER] 60 mg PO DAILY #30 tab 11/03/18 Levetiracetam 500 mg PO DAILY 11/03/18 Spironolactone 25 mg PO DAILY #30 tab 11/03/18 Donepezil Hydrochloride [Donepezil HCl] 10 mg PO DAILY 02/20/19 Epinephrine (Anaphylaxis) [Epinephrine] 0.3 mg IM Q12HR PRN 02/20/19 Memantine HCl 5 mg PO BID 02/20/19 Olmesartan Medoxomil 20 mg PO BID 02/20/19 Acetaminophen [Tylenol] 650 mg PO Q6HR PRN 02/23/19 Amlodipine Besylate 10 mg PO DAILY 02/23/19 Apixaban [Eliquis] 2.5 mg PO BID 02/23/19 Aspirin [Aspirin Low Strength] 81 mg PO DAILY 02/23/19 Carvedilol [Coreg] 12.5 mg PO BID 02/23/19 Cetirizine HCl 5 mg PO BEDTIME 02/23/19 Insulin Lispro [Humalog Kwikpen] See Protocol SC ACHS 02/23/19 Insulin Lispro [Humalog] 6 unit SUBCU TID 02/23/19 Nitroglycerin 0.4 mg Tab [Nitrostat] 0.4 mg SL Q5MIN PRN 02/23/19 Review of Systems - Review of Systems Constitutional: States: no symptoms reported, see HPI EENTM: States: no symptoms reported, see HPI Respiratory: States: no symptoms reported, see HPI Cardiology: States: no symptoms reported. Denies: chest pain, palpitations Gastrointestinal/Abdominal: States: no symptoms reported, see HPI Genitourinary: States: no symptoms reported, see HPI. Denies: dysuria, frequency Musculoskeletal: States: joint pain - right shoulder Skin: States: no symptoms reported Neurological: States: no symptoms reported Unable to Obtain Due To: other - pt with hx of dementia. All other Systems: Reviewed and Negative <Boo Rosales - Last Filed: 03/02/19 06:35> Past Medical History (General) - Patient Medical History Hx Seizures: No Hx Stroke: No Hx Asthma: No Hx of COPD: No Hx Cardiac Disorders: Yes Hx Congestive Heart Failure: Yes Hx Pacemaker: No Hx Hypertension: Yes Hx Diabetes: Yes 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 Hx Hepatitis C: No Hx MRSA: No Surgical History: other - Vaccination History Hx Tetanus, Diphtheria Vaccination: No Hx Influenza Vaccination: Yes Hx Pneumococcal Vaccination: Yes - Social History Hx Tobacco Use: No Hx Chewing Tobacco Use: No Hx Alcohol Use: No Hx Substance Use: No Hx Substance Use Treatment: No Hx Depression: No Hx Physical Abuse: No Hx Emotional Abuse: No - Activities of Daily Living Assisted/Assisted Living (if applicable):: [facility] <Boo Rosales - Last Filed: 03/02/19 06:35> Family Medical History - Family History Mother Family History: Unknown Living Status: <Boo Rosales - Last Filed: 03/02/19 06:35> Physical Exam - Physical Exam General Appearance: Comfortable, Well Developed, Well Groomed, Well Hydrated, Well Nourished Eye Exam: bilateral normal Ears, Nose, Throat: hearing grossly normal, normal ENT inspection, normal pharynx Neck: non-tender, full range of motion, supple, normal inspection Respiratory: chest non-tender, lungs clear, normal breath sounds, no respiratory distress, no accessory muscle use Cardiovascular/Chest: normal peripheral pulses, regular rate, rhythm, no edema, irregularly irregular Gastrointestinal/Abdominal: normal bowel sounds, non tender Back Exam: no vertebral tenderness Extremity: other - Pt with TTP of right shoulder. 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 non spec st-t changes, abnl ekg <Boo Rosales - Last Filed: 03/02/19 06:35> - Progress Progress: 03/02/19 09:25 D/w daughter, Kaelyn Martin , her father's case. She indicates pt was admitted [place] earlier this month. Pt was eval'd by cardiology. Pt had EF of 35%. Considering age and PMHx pt was medical management only. Kaelyn says that pt's mental status is worse than usual today. Pt has had hallucinations, but definitely seems more confused and agitated than usual. She also says that she has some concerns about pt going back to [place] in this state. 03/02/19 10:13 CT Head reviewed - preliminary no hemorrhage, no shift, senescent changes. - Results/Orders Results/Orders: Laboratory Results - last 24 hr 03/02/19 03/02/19 03/02/19 05:15 Unknown Unknown WBC 5.6 RBC 4.60 L Hgb 13.8 L Hct 42.5 MCV 92.4 MCH 30.1 MCHC 32.6 L RDW 14.3 Plt Count 260 MPV 8.9 Absolute Neuts (auto) 3.60 Absolute Lymphs (auto) 1.20 Absolute Monos (auto) 0.50 Absolute Eos (auto) 0.20 Absolute Basos (auto) 0.10 Neutrophils % 64.3 Lymphocytes % 22.2 Monocytes % 9.2 H Eosinophils % 3.3 Basophils % 1.0 Sodium 139 Potassium 4.6 Chloride 110 Carbon Dioxide 19 L Anion Gap 14.6 BUN 41 H Creatinine 2.08 H BUN/Creatinine Ratio 19.7 Random Glucose 251 H Serum Osmolality 296.1 H Calcium 8.7 Total Bilirubin 0.5 AST 15 ALT 17 Alkaline Phosphatase 62 Troponin I Serum Total Protein 7.2 Albumin 3.6 Globulin 3.6 H Albumin/Globulin Ratio 1.0 L Lipase 77 H Urine Color Yellow Urine Appearance Sl cloudy Urine pH 5.0 Ur Specific Merrill 1.025 Urine Protein 100 H Urine Glucose (UA) Negative Urine Ketones Trace Urine Blood Negative Urine Nitrite Negative Urine Bilirubin Negative Urine Urobilinogen 0.2 Ur Leukocyte Esterase Negative Urine RBC 0-1 Urine WBC 0-1 Ur Epithelial Cells 0-1 Amorphous Sediment 3+ Urine Bacteria 1+ 03/02/19 Unknown WBC RBC Hgb Hct MCV MCH MCHC RDW Plt Count MPV Absolute Neuts (auto) Absolute Lymphs (auto) Absolute Monos (auto) Absolute Eos (auto) Absolute Basos (auto) Neutrophils % Lymphocytes % Monocytes % Eosinophils % Basophils % Sodium Potassium Chloride Carbon Dioxide Anion Gap BUN Creatinine BUN/Creatinine Ratio Random Glucose Serum Osmolality Calcium Total Bilirubin AST ALT Alkaline Phosphatase Troponin I 0.35 H* Serum Total Protein Albumin Globulin Albumin/Globulin Ratio Lipase Urine Color Urine Appearance Urine pH Ur Specific Merrill Urine Protein Urine Glucose (UA) Urine Ketones Urine Blood Urine Nitrite Urine Bilirubin Urine Urobilinogen Ur Leukocyte Esterase Urine RBC Urine WBC Ur Epithelial Cells Amorphous Sediment Urine Bacteria EXAM DESCRIPTION: Chest,1 View CLINICAL HISTORY: unwitnessed fall COMPARISON: 09/08/2018 FINDINGS: Single frontal view of the chest. Cardiomediastinal silhouette: Cardiac megaly. Prior median sternotomy. Atherosclerotic vascular calcification. Lungs: Diffuse bilateral interstitial and alveolar opacities. No pneumothorax. Bones: No acute osseous abnormality. Upper abdomen: Postoperative change in the epigastric region. IMPRESSION: 1. Cardiomegaly with diffuse bilateral interstitial and alveolar opacities concerning for pulmonary edema. Electronically signed by: Bryant Bruner 03/02/2019 5:36 AM CDT <MARCUS WILLIAM - Last Filed: 03/02/19 10:28> Departure <Boo Rosales - Last Filed: 03/02/19 06:35> <MARCUS WILLIAM - Last Filed: 03/02/19 10:28> - Departure Clinical Impression: Abnormal x-ray Altered mental status Qualifiers: Altered mental status type: unspecified Qualified Code(s): R41.82 - Altered mental status, unspecified Chronic kidney failure Qualifiers: Chronic kidney disease stage: unspecified stage Qualified Code(s): N18.9 - Chronic kidney disease, unspecified Dementia Qualifiers: Dementia type: unspecified type Dementia behavioral disturbance: with behavioral disturbance Qualified Code(s): F03.91 - Unspecified dementia with behavioral disturbance Congestive heart failure Qualifiers: Heart failure type: unspecified Heart failure chronicity: unspecified Qualified Code(s): I50.9 - Heart failure, unspecified Disposition: Admit Patient Condition: Fair Departure Forms: ED Discharge - Pt. Copy, Patient Portal Self Enrollment Referrals: Mike Tolliver MD [Primary Care Provider] - 1-2 Weeks Home Medications: Ambulatory Orders Citalopram Hydrobromide [Celexa] 20 mg PO DAILY 11/03/18 Clonidine HCl 0.3 mg PO Q6H PRN 11/03/18 Furosemide Tab [Lasix Tab] 20 mg PO QAM 11/03/18 Insulin Glargine [Lantus Solostar] 20 unit SC BEDTIME 11/03/18 Isosorbide Mononitrate [Isosorbide Mononitrate ER] 60 mg PO DAILY #30 tab 11/03/18 Levetiracetam 500 mg PO DAILY 11/03/18 Spironolactone 25 mg PO DAILY #30 tab 11/03/18 Donepezil Hydrochloride [Donepezil HCl] 10 mg PO DAILY 02/20/19 Epinephrine (Anaphylaxis) [Epinephrine] 0.3 mg IM Q12HR PRN 02/20/19 Memantine HCl 5 mg PO BID 02/20/19 Olmesartan Medoxomil 20 mg PO BID 02/20/19 Acetaminophen [Tylenol] 650 mg PO Q6HR PRN 02/23/19 Amlodipine Besylate 10 mg PO DAILY 02/23/19 Apixaban [Eliquis] 2.5 mg PO BID 02/23/19 Aspirin [Aspirin Low Strength] 81 mg PO DAILY 02/23/19 Carvedilol [Coreg] 12.5 mg PO BID 02/23/19 Cetirizine HCl 5 mg PO BEDTIME 02/23/19 Insulin Lispro [Humalog Kwikpen] See Protocol SC ACHS 02/23/19 Insulin Lispro [Humalog] 6 unit SUBCU TID 02/23/19 Nitroglycerin 0.4 mg Tab [Nitrostat] 0.4 mg SL Q5MIN PRN 02/23/19 Decision To Admit - Decistion To Admit Decision to Admit Date: 03/02/19 Decision to Admit Time: 10:27 <MARCUS WILLIAM - Last Filed: 03/02/19 10:28> Addendum entered and electronically signed by MARCUS WILLIAM 03/02/19 13:55: Departure - Departure Clinical Impression: Abnormal x-ray Altered mental status Qualifiers: Altered mental status type: unspecified Qualified Code(s): R41.82 - Altered mental status, unspecified Chronic kidney failure Qualifiers: Chronic kidney disease stage: unspecified stage Qualified Code(s): N18.9 - Chronic kidney disease, unspecified Dementia Qualifiers: Dementia type: unspecified type Dementia behavioral disturbance: with behavioral disturbance Qualified Code(s): F03.91 - Unspecified dementia with behavioral disturbance Congestive heart failure Qualifiers: Heart failure type: unspecified Heart failure chronicity: unspecified Qualified Code(s): I50.9 - Heart failure, unspecified Disposition: Admit Patient Condition: Fair Home Medications: Ambulatory Orders Citalopram Hydrobromide [Celexa] 20 mg PO BEDTIME 11/03/18 Clonidine HCl 0.3 mg PO Q6H PRN 11/03/18 Furosemide Tab [Lasix Tab] 20 mg PO QAM 11/03/18 Insulin Glargine [Lantus Solostar] 20 unit SC BEDTIME 11/03/18 Isosorbide Mononitrate [Isosorbide Mononitrate ER] 60 mg PO DAILY #30 tab 11/03/18 Levetiracetam 500 mg PO BEDTIME 11/03/18 Spironolactone 25 mg PO DAILY #30 tab 11/03/18 Donepezil Hydrochloride [Donepezil HCl] 10 mg PO DAILY 02/20/19 Epinephrine (Anaphylaxis) [Epinephrine] 0.3 mg IM Q12HR PRN 02/20/19 Memantine HCl 5 mg PO BID 02/20/19 Olmesartan Medoxomil 20 mg PO BID 02/20/19 Acetaminophen [Tylenol] 650 mg PO Q6HR PRN 02/23/19 Amlodipine Besylate 10 mg PO DAILY 02/23/19 Apixaban [Eliquis] 2.5 mg PO BID 02/23/19 Aspirin [Aspirin Low Strength] 81 mg PO DAILY 02/23/19 Carvedilol [Coreg] 12.5 mg PO BID 02/23/19 Cetirizine HCl 5 mg PO BEDTIME 02/23/19 Insulin Lispro [Humalog Kwikpen] See Protocol [place] ACHS 02/23/19 Insulin Lispro [Humalog] 6 unit SUBCU TID 02/23/19 Nitroglycerin 0.4 mg Tab [Nitrostat] 0.4 mg SL Q5MIN PRN 02/23/19 Calcitriol 0.25 mcg PO MOWEFR 03/02/19 ED Addendum - ED Addendum Addendum: 03/02/19 1354 Notified by hospitalist that xray imported into chart not pt's cxr. I reviewed cxr in viewer. I saw final interpretation which stated that pt had nonacute cxr. Since chart signed, there is no way to edit chart. Please note that cxr nonacute and admission dx of abnormal cxr incorrect.
[2019-03-02] MEDS ORDERED: ASPIRIN (CHEWABLE) 81 MG TAB PO ONE (07:03)
[2019-03-02] MEDS ORDERED: NITROGLYCERIN 2% 1 GM UD TOP ONE ×2 (07:03→07:04)
[2019-03-02] MEDS ORDERED: ASPIRIN (CHEWABLE) 81 MG TAB ONE (07:03)
--- NOTE | 2019-03-02 07:07 | RAD ---
Study: 3 View Right Shoulder Indication: shoulder pain Comparison: None. Impression: A.C. and glenohumeral joint alignment normal without acute fracture or dislocation. 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 Mild cortical remodeling greater tuberosity. Mild subluxation humeral head indicating rotator cuff tendon tearing. Osteopenia. If this is a new finding, DEXA scan recommended as well as evaluation for possible osteoporosis treatment. Electronically signed by: Tan Pulliam MD 03/02/2019 7:06 AM CDT
--- NOTE | 2019-03-02 08:51 | RAD ---
EXAM DESCRIPTION: Chest,1 View CLINICAL HISTORY: 83 years Male, chest discomfort COMPARISON: Previous study February 23, 2019 TECHNIQUE: AP portable chest. FINDINGS: Heart size is prominent with normal pulmonary vascularity. Surgical clips in lower neck. No consolidating infiltrate. No pulmonary mass or worrisome nodule. Nodular density over the right lower lung zone is thought to be a nipple shadow. No pneumothorax or pleural effusion. Bones are unremarkable. IMPRESSION: No acute process is identified in the chest. Electronically signed by: Rick Reyes MD 03/02/2019 8:50 AM CDT
--- NOTE | 2019-03-02 10:15 | CT ---
EXAM DESCRIPTION: Head CLINICAL HISTORY: 83 years Male, AMS COMPARISON: CT head 02/19/2019 TECHNIQUE: Axial images obtained from the skull base to the vertex without intravenous contrast with images. Coronal and sagittal reformations provided. This exam was performed according to our departmental dose-optimization program, which includes automated exposure control, adjustment of the mA and/or kV according to patient size and/or use of iterative reconstruction technique. Time Last Seen Well (If known) for Code Stroke: n/a FINDINGS: Brain Parenchyma, ventricles, meninges, and extra-axial spaces: Moderate generalized cerebral volume loss. Nonspecific moderate white matter hypodensities in the cerebral hemispheres likely related to ischemic small vessel disease. Possible difficulty differentiating a small acute infarction given these hypodensities. Chronic encephalomalacia within the medial posterior left parietal lobe. No acute intracranial hemorrhage. No abnormal extra-axial fluid collection. Vascular: Atherosclerosis is within the carotid siphons and vertebral arteries. Calvarium, paranasal sinuses, mastoids, and orbits: Calvarium intact. Visualized paranasal sinuses and mastoid air cells clear. Orbits unremarkable. IMPRESSION: 1. No acute intracranial abnormality. Of note, CT is relatively insensitive when compared to MRI for evaluation of acute ischemic infarction. 2. Chronic encephalomalacia within the medial posterior left parietal lobe. 3. Senescent changes. Electronically signed by: Harley Amezquita MD 03/02/2019 10:13 AM CDT
--- NOTE | 2019-03-02 10:48 | HP ---
SUPERVISING PHYSICIAN: Eriberto Ivey M.D. CHIEF COMPLAINT: Acute mental status change. HISTORY OF PRESENT ILLNESS: Mr. Ross is an 83 year-old male patient that resides at [facility]. He presented to the [facility] today at the request of the facility due to the fact that the patient was having hallucinations and acute mental status change. He was not "himself." He does have a history of recently being admitted here for the same thing, mental status change and a recent non-ST elevation myocardial infarction where he had been discharged on 02/22/19 from [facility], and continues to have an elevated troponin. His workup in the [facility] showed he had a normal white count at 5,600 without a left shift. Chemistries were showing normal electrolytes with a BUN 41, creatinine 2.0. The patient does have a history of renal insufficiency with baseline creatinine levels of about 1.8. His serum osmolality was also elevated at 296. Liver functions were all within normal limits. Troponin was 0.35 which is down from previous weeks of 0.43. BNP was only slightly elevated at 154. Urinalysis was within normal limits except for 100 of protein. The patient does have severe dementia and is not able to provide any history, but his daughter is at the bedside and is very knowledgeable of the patient's history. His vital signs are showing that he was hemodynamically stable with a temperature of 98.1, pulse 62, blood pressure 150/81, satting 98% on room air. Chest x-ray showed no acute process identified within the chest. He also had a CT of the head without contrast. The CT findings per radiology interpretation showed no acute intracranial abnormalities, just chronic encephalomalacia changes within the medial posterior left parietal lobe. His 12-lead EKG showed to be without any ST or T wave changes to indicate acute ischemia or injury pattern, just heart atrial flutter. Atrial flutter is chronic for the patient but the patient is on chronic anticoagulation with Eliquis. Given the patient's acute mental status change and elevated troponin, and no obvious source of his etiology of his change in his mental status, the [facility] physician requested the patient be placed in observation for close telemetry, neurological monitoring and further evaluation. PAST MEDICAL HISTORY: 1. Chronic renal insufficiency with a baseline creatinine of about 1.8. 2. Skin cancer with multiple removals. 3. Chronic constipation. 4. Diabetes mellitus type 2. 5. Hyperlipidemia. 6. Hypertension. 7. Mild dementia. 8. Recent non-ST segment elevation myocardial infarction on 02/22/19 with continued elevated troponin. 9. History of dementia with recent episodes of acute mental status change with no identified etiology. PAST SURGICAL HISTORY: 1. Multiple skin cancer removals. OUTPATIENT MEDICATIONS: 1. Spironolactone 25 mg daily. 2. Olmesartan Medoxomil 20 mg b.i.d. 3. Nitroglycerin 0.4 mg every 5 minutes as needed. 4. Memantine 5 mg b.i.d. 5. Keppra 500 mg at bedtime. 6. Isosorbide mononitrate extended release 60 mg daily. 7. Insulin 6 units t.i.d. 8. Sliding scale insulin. 9. Lantus Solostar 20 units at bedtime. 10. Lasix 20 mg daily. 11. Epinephrine for anaphylaxis 0.3 mg IM. 12. Donepezil 10 mg daily. 13. Clonidine 0.3 mg every 6 hours as needed. 14. Celexa 20 mg daily. 15. Cetirizine 5 mg daily. 16. Coreg 12.5 mg b.i.d. 17. Calcitriol 0.25 mg 3 times a week. 18. Aspirin 81 mg daily. 19. Eliquis 2.5 mg b.i.d. 20. Amlodipine 10 mg daily. 21. Tylenol 650 mg every 6 hours as needed. ALLERGIES: HYDROCODONE, PENICILLIN AND NSAIDs. FAMILY HISTORY: SOCIAL HISTORY: The patient lives at [facility]. He is recently within in the last 2 months. He denies any smoking, drinking or illicit alcohol use per chart review. REVIEW OF SYSTEMS: Difficult to obtain due to present illness. PHYSICAL EXAMINATION: GENERAL: The patient is resting comfortably. Appears to be in no acute distress. He is well nourished and well hydrated. HEENT: Tympanic membranes are clear bilaterally. Oropharynx is pink with dry mucosal membranes. NECK: Supple, non-tender. Full range of motion. No jugular venous distention. CHEST: Lungs were essentially clear throughout, just notably decreased towards the bases but no rhonchi, wheezing or rales. CARDIOVASCULAR: Regular rate and rhythm with atrial fibrillation/flutter noted on the monitor. No appreciable murmurs, gallops, or rubs. ABDOMEN: Soft, non-tender. Positive bowel sounds. EXTREMITIES: No notable clubbing, cyanosis or edema. NEUROLOGIC: He is essentially obtunded but will just moan to verbal stimulus and follows commands very minimally, but moves all extremities ad viviane. SKIN: Warm, pink and dry. LYMPHATICS: No notable lymphadenopathies. LABORATORY STUDIES: White count 5,600, hemoglobin 13.8, hematocrit 42.5, platelet count 260,000. Differential shows to be without a left shift. Coagulation studies shows normal PT and PTT. Chemistries showed normal electrolytes, just a slightly low carbon dioxide at 19. Normal anion gap. BUN 41, creatinine 2.08. Blood sugar was 251, osmolality 296. Liver functions were all within normal limits. BNP was slightly elevated at 154, Troponin was up to 0.35 which is down from previous last week at 0.43. Urine specimen showed 100 of protein within normal limits but was yellow and cloudy with reportedly 1+ bacteria. ASSESSMENT: 1. Acute mental status change, uncertain etiology with no true source of infection identified, although his urine shows 1+ bacteria but no white cells. He is afebrile but does have a history of episodes of acute mental status change. 2. Elevated troponin with a history of recent non-ST segment elevation myocardial infarction with the patient not reporting any chest pains prior to arrival. 3. Acute on chronic renal failure with some likely prerenal azotemia from dehydration and aggressive diuretic management resulting in dehydration possibly contributing to acute mental status change. 4. History of dementia. 5. Diabetes mellitus type 2 on insulin therapy. 6. Hypertension. PLAN: Mr. Ross is going to be placed in observation for further evaluation and close monitoring of his neurological status. At this point there is no real true etiology of his change in mental status. Will go ahead and start him on some fluids which it could be that he is a little dehydrated, but will be very cautious with this as I am not sure if he has any degree of heart failure but he did have a slightly elevated BNP. Will also go ahead and get an echocardiogram. Will go ahead and do a brain MRI without contrast to further rule out any neurological event such as acute stroke. I will go ahead and give him a single dose of Rocephin today and reevaluate in the morning with a repeat urinalysis and laboratory studies. There is a chance he may be developing a urinary tract infection. It is just not very evident and this is resulting in some of his acute onset of his mental status change exacerbated by some mild dehydration. Anticipate hospitalization of 1 to 2 days if he does not show anything more acutely, and discharge back to [facility]. Until then will continue to monitor and treat as necessary. #[id number] MTDD
[2019-03-02] MEDS ORDERED: ONDANSETRON INJ 4 MG/2 ML VIAL IV PRN (14:03)
[2019-03-02] MEDS ORDERED: MAGNESIUM HYDROXIDE 30 ML UD PO PRN (14:03)
[2019-03-02] MEDS ORDERED: ALUM & MAG HYDROX-SIMETHICONE 30 ML UD PO PRN (14:03)
[2019-03-02] MEDS ORDERED: SODIUM CHLORIDE 0.9% (FLUSH) 10 ML SYG IV PRN (14:03)
[2019-03-02] MEDS ORDERED: GLUCAGON INJ 1 MG VIAL SUBCU PRN (14:03)
[2019-03-02] MEDS ORDERED: DEXTROSE 50% 25 GM/50 ML SYG IV PRN (14:03)
[2019-03-02] MEDS ORDERED: IV SET AND CAP CHANGE INJ INJ SCH (14:30)
[2019-03-02] MEDS: DEX 5% W/NACL 0.45% 1000ML 1,000 ML IVS PRN (15:29)
--- NOTE | 2019-03-02 16:25 | MRI ---
EXAM DESCRIPTION: Brain w/o Contrast: MRI. CLINICAL HISTORY: acute metal status change, hx atrial fibrillation and recent UT COMPARISON: MRI scan of the brain without contrast 10/12/2018. TECHNIQUE: Multiplanar, high-field MRI unit, multiple diffusion sequences, multiple conventional sequences without contrast. FINDINGS: Confluent hyperintense FLAIR and T2-weighted signal in the periventricular white matter of the frontoparietal and occipital lobes, extending superiorly to the centrum semiovale. Bilateral small foci of hyperintense FLAIR and T2 signal predominantly in the frontal lobes. No hemorrhage, no cerebral edema, no mass-effect. No diffusion restriction. Normal signal in the bilateral basal ganglia. No hemorrhage or mass effect or diffusion restriction. Normal signal in the brainstem and cerebellar hemispheres. No hemorrhage, no parenchymal edema, no mass-effect. No diffusion restriction. Concordance of the diffusion and non-diffusion sequences with no diffusion restriction. Cortical sulci, ventricles, and other CSF spaces, and the subdural spaces are slightly prominent for patient's age especially abutting the margins of the temporal, and the parasagittal anterior frontal lobes. Stable encephalomalacia anterior right parasagittal frontal lobe with bordering bright FLAIR signal indicating stenosis. Frontal and parietal lobes. No effacement or displacement. No midline shift. No extra-axial hemorrhage. Normal flow signal void in the major vessels of the [place] Madd[place], and the venous sinuses. IACs are symmetric bilaterally. No fluid in the bilateral mastoid air cells. No mass effect in the bilateral cerebellopontine angles. Pituitary gland occupies most of the sella. Base of the cerebellar tonsils is at the level of the foramen magnum. Minimal chronic changes in the bilateral ethmoid air cells. The bony calvarium is intact. IMPRESSION: Abnormal periventricular white matter signal, also seen in the centrum semiovale above the ventricles is stable since the prior study most likely related to aging and cerebral microvascular disease. No diffusion restriction indicating acute or subacute significant ischemia or infarction. Prominent cortical sulci and CSF spaces are stable. Stable encephalomalacia anterior right parasagittal frontal lobe. No intra-axial or extra-axial hemorrhage. No extra-axial fluid collection. Electronically signed by: Edy Valdez MD 03/02/2019 4:23 PM CDT
[2019-03-02] MEDS: INSULIN LISPRO 100 UNITS/ML PEN SUBCU SCH ×2 (16:36→20:46)
[2019-03-02] MEDS ORDERED: cefTRIAXone SODIUM 1 GM in SODIUM CHL 0.9% 50ML MIN-BAG+ 50 ML IVPB SCH (17:30)
[2019-03-02] MEDS ORDERED: SODIUM CHL 0.9% 50ML MIN-BAG+ 50 ML IVPB ONE (18:05)
[2019-03-02] MEDS ORDERED: cefTRIAXone SODIUM 1 GM VIAL ONE (18:05)
[2019-03-02] MEDS ORDERED: CETIRIZINE HCL 10 MG TAB PO ONE ×2 (19:24→19:57)
[2019-03-02] MEDS ORDERED: MEMANTINE 10 MG TAB ONE ×2 (19:24→19:57)
[2019-03-02] MEDS ORDERED: levETIRAcetam 250 MG TAB ONE ×2 (19:24→19:57)
[2019-03-02] MEDS: CITALOPRAM HBR 20 MG TAB PO SCH (20:30)
[2019-03-02] MEDS: APIXABAN 5 MG TAB PO SCH (20:30)
[2019-03-02] MEDS: CARVEDILOL 12.5 MG TAB PO SCH (20:31)
[2019-03-02] MEDS: MEMANTINE HCL 5 MG PO SCH (20:33)
[2019-03-02] MEDS ORDERED: NON-FORMULARY MEDICATION 1 EA MIS (Insulin Glargine [Lantus Solostar] 20 UNIT) SC SCH (21:00)
[2019-03-02] MEDS: INSULIN DETEMIR 100 UNITS/ML PEN SUBCU SCH (21:00)
[2019-03-02] MEDS ORDERED: CETIRIZINE HCL 5 MG PO SCH (21:00)
[2019-03-02] MEDS ORDERED: NON-FORMULARY MEDICATION 1 EA MIS (Levetiracetam [Levetiracetam] 500 MG) PO SCH (21:00)
[2019-03-02] MEDS: OLMESARTAN MEDOXOMIL 20 MG PO SCH (21:04)
[2019-03-03] MEDS: DEX 5% W/NACL 0.45% 1000ML 1,000 ML IVS PRN ×2 (06:28→19:27)
[2019-03-03] MEDS: INSULIN LISPRO 100 UNITS/ML PEN SUBCU SCH ×4 (07:06→20:58)
[2019-03-03] MEDS ORDERED: SODIUM CHL 0.9% 50ML MIN-BAG+ 50 ML IVPB ONE (09:23)
[2019-03-03] MEDS ORDERED: cefTRIAXone SODIUM 1 GM VIAL ONE (09:24)
[2019-03-03] MEDS: DONEPEZIL HCL 5 MG TAB PO SCH (09:27)
[2019-03-03] MEDS: amLODIPine BESYLATE 5 MG TAB PO SCH (09:27)
[2019-03-03] MEDS: MEMANTINE 10 MG TAB PO SCH ×2 (09:27→20:30)
[2019-03-03] MEDS: ISOSORBIDE MONONITRATE (IMDUR) 30 MG TAB PO SCH (09:27)
[2019-03-03] MEDS: CARVEDILOL 12.5 MG TAB PO SCH ×2 (09:28→20:30)
[2019-03-03] MEDS: ASPIRIN (CHEWABLE) 81 MG TAB PO SCH (09:28)
[2019-03-03] MEDS: SPIRONOLACTONE 25 MG TAB PO SCH (09:28)
[2019-03-03] MEDS: APIXABAN 5 MG TAB PO SCH ×2 (09:28→20:31)
[2019-03-03] MEDS: FUROSEMIDE 40 MG TAB PO SCH (09:28)
[2019-03-03] MEDS: cefTRIAXone SODIUM 1 GM in SODIUM CHL 0.9% 50ML MIN-BAG+ 50 ML IVPB SCH (09:32)
[2019-03-03] MEDS: OLMESARTAN MEDOXOMIL 20 MG PO SCH ×2 (09:46→20:32)
[2019-03-03] MEDS: MEMANTINE HCL 5 MG PO SCH (09:47)
--- NOTE | 2019-03-03 13:08 | PN ---
SUPERVISING PHYSICIAN: Eriberto Ivey MD DATE: 03/03/19 SUBJECTIVE: The patient is lying in bed. He denies any shortness of breath, chest pain, nausea or vomiting. He does answer questions appropriately, but he does have some delusions that are somewhat seated in reality. It is difficult to tell exactly what portions of his speech are factual or not. OBJECTIVE: VITAL SIGNS: Temperature 97.7. Heart rate 71. Blood pressure 156/55. Respiratory rate 17. O2 saturation 97% on room air. RESPIRATORY: Essentially clear to auscultation bilaterally. CARDIAC: Regular rate and rhythm. GASTROINTESTINAL: Abdomen is soft, rounded, nondistended. Bowel sounds are positive. NEUROLOGIC: Awake, alert although he does get confused about what is going on in the present tense. LABORATORY: Blood sugars have run between 120 and 308. All other labs and films have been reviewed via the EMR. ASSESSMENT: 1. Acute mental status change, uncertain etiology with no true source of infection identified, although his urine shows 1+ bacteria but no white cells. He is afebrile but does have a history of episodes of acute mental status change. 2. Elevated troponin with a history of recent non-ST segment elevation myocardial infarction with the patient not reporting any chest pains prior to arrival. 3. Acute on chronic renal failure with some likely prerenal azotemia from dehydration and aggressive diuretic management resulting in dehydration possibly contributing to acute mental status change. 4. History of dementia. 5. Diabetes mellitus, type 2, on insulin therapy. 6. Hypertension. PLAN: We will continue present supportive care. I believe the patient is stabilized, but his mental status changes are somewhat different than previously and he may need to psychology or psychiatry at some point after discharge. He was recently in the hospital and his mental status changes are quite different from that previous admission. We will monitor his neuro status overnight. Hopefully he can be discharged to [facility] tomorrow with close followup in the outpatient setting. I will not do any further troponin testing as he does have recent history of myocardial infarction. We will continue to monitor the patient closely and follow as needed. #[id number] MTDD
[2019-03-03] MEDS: CITALOPRAM HBR 20 MG TAB PO SCH (20:30)
[2019-03-03] MEDS: INSULIN DETEMIR 100 UNITS/ML PEN SUBCU SCH (20:58)
[2019-03-03] MEDS ORDERED: levETIRAcetam 250 MG TAB PO SCH (21:00)
[2019-03-03] MEDS ORDERED: CETIRIZINE HCL 10 MG TAB PO SCH (21:00)
[2019-03-04] MEDS: INSULIN LISPRO 100 UNITS/ML PEN SUBCU SCH ×2 (08:39→12:22)
[2019-03-04] MEDS ORDERED: SODIUM CHL 0.9% 50ML MIN-BAG+ 50 ML IVPB ONE (08:57)
[2019-03-04] MEDS ORDERED: cefTRIAXone SODIUM 1 GM VIAL ONE (08:58)
[2019-03-04] MEDS: cefTRIAXone SODIUM 1 GM in SODIUM CHL 0.9% 50ML MIN-BAG+ 50 ML IVPB SCH (09:25)
[2019-03-04] MEDS: DEX 5% W/NACL 0.45% 1000ML 1,000 ML IVS PRN (09:25)
[2019-03-04] MEDS: ISOSORBIDE MONONITRATE (IMDUR) 30 MG TAB PO SCH (09:29)
[2019-03-04] MEDS: amLODIPine BESYLATE 5 MG TAB PO SCH (09:30)
[2019-03-04] MEDS: CARVEDILOL 12.5 MG TAB PO SCH (09:31)
[2019-03-04] MEDS: FUROSEMIDE 40 MG TAB PO SCH (09:31)
[2019-03-04] MEDS: DONEPEZIL HCL 5 MG TAB PO SCH (09:31)
[2019-03-04] MEDS: SPIRONOLACTONE 25 MG TAB PO SCH (09:31)
[2019-03-04] MEDS: MEMANTINE 10 MG TAB PO SCH (09:31)
[2019-03-04] MEDS: ASPIRIN (CHEWABLE) 81 MG TAB PO SCH (09:31)
[2019-03-04] MEDS: APIXABAN 5 MG TAB PO SCH (09:32)
[2019-03-04] MEDS: OLMESARTAN MEDOXOMIL 20 MG PO SCH (09:38)
[2019-03-04 14:00] VITALS: BP 135/64; TEMP 98.5; O2SAT 97
[2019-03-04] MEDS ORDERED: LOSARTAN POTASSIUM 25 MG TAB PO SCH (21:00)
--- NOTE | 2019-03-06 09:11 | DS ---
SUPERVISING PHYSICIAN: Eriberto Ivey MD DISCHARGE DIAGNOSIS: 1. Acute mental status change, uncertain etiology with no true source of infection identified, although his urine shows 1+ bacteria but no white cells. He is afebrile but does have a history of episodes of acute mental status change. 2. Elevated troponin with a history of recent non-ST segment elevation myocardial infarction with the patient not reporting any chest pains prior to arrival. 3. Acute on chronic renal failure with some likely prerenal azotemia from dehydration and aggressive diuretic management resulting in dehydration possibly contributing to acute mental status change. 4. History of dementia. 5. Diabetes mellitus, type 2, on insulin therapy. 6. Hypertension. HISTORY OF PRESENT ILLNESS: This is an 83 year-old male patient that resides at [facility]. He came to the Emergency Room on the day of admission having hallucinations and acute mental status changes. He was just not "himself." He does have a history of recently being admitted to the hospital for the same thing. It is to be noted that several months ago, he lost his and she had helped care for him. Since she , he has been steadily declining in his mental function. He did have a recent non-ST elevation myocardial infarction where he had been discharged on 02/22/19 from [facility], and continues to have an elevated troponin. Initially, his initial vital signs showed temperature 98.1, heart rate 62, blood pressure 150/81, right 18, O2 saturation 98%. His laboratory studies were done and his initial CBC was unremarkable. Chemistries were showing normal electrolytes with the exception of carbon dioxide 19. BUN 41, creatinine 2.08. His baseline creatinine is about 1.8. BNP was 154 and troponin was elevated at 0.35. Urinalysis was unremarkable. His chest x-ray showed no acute process identified within the chest. He had a CT of the head done that showed no acute intracranial abnormalities. He just had chronic encephalomalacia changes within the medial posterior left parietal lobe. His 12-lead EKG was without any ST or T wave changes. He is in atrial flutter and that is chronic and the patient is on chronic anticoagulation with Eliquis. Given the patient's acute mental status change as well as elevated troponin and no obvious source of his etiology of his change in his mental status, he was admitted to the hospital. HOSPITAL COURSE: He was placed in observation on the Medical/Surgical Floor for further evaluation and close monitoring of his neurological status. He was given fluids initially. An echocardiogram was ordered. A brain MRI was also ordered. He was initially given some Rocephin for a possible developing urinary tract infection, but that turned out to be negative. His neuro status did improve over the next day although he did have moments that were delusional and even though he could answer most questions appropriately, he continues to say that there were kids of his friends from many years ago that were playing out in the yard. Although no one could see people around, he saw people in his room that were not here. His vital signs remained stable. Nothing acutely developed during his hospital stay. He will be discharged back to [facility] today in stable condition. LABORATORY: As per history of present illness. His followup metabolic panel showed basically within normal limits electrolytes. His creatinine did improve to 1.52. RADIOLOGY: His brain MRI showed abnormal periventricular white matter signal also seen in the centrum semiovale above the ventricle, stable since prior study, most likely related to aging and cerebral microvascular disease. No diffusion restriction indicating acute or subacute significant ischemia or infarction. Prominent cortical sulci and CSF spaces are stable. Stable encephalomalacia anterior right parasagittal front lobe. No intra-axial or extra-axial hemorrhage. No extra-axial fluid collection. Echocardiogram was unavailable for review at the time of his discharge. DISCHARGE PLAN: The patient will be discharged back to [facility] in stable condition. He is to resume his previous diet as well as increase his activity as tolerated. He is to followup with Dr. Tigre Michaels, his primary care physician, within one to two weeks. In addition to his routine home medications, he will be treated with cefdinir for an additional 7 days. He is to return to the hospital or followup with Dr. Michaels for any problems or complications. DISCHARGE MEDICATIONS: 1. Levetiracetam. 2. Lantus insulin. 3. Furosemide. 4. Clonidine. 5. Citalopram. 6. Isosorbide mononitrate. 7. Spironolactone. 8. Olmesartan. 9. Memantine. 10. Epinephrine. 11. Donepezil. 12. Cetirizine. 13. Eliquis. 14. Nitroglycerin. 15. Humalog insulin. 16. Coreg. 17. Aspirin. 18. Amlodipine. 19. Acetaminophen. 20. Calcitrol. 21. Cefdinir. #[id number] MTDD
== END 2019-03-04 13:55 ==
LOC: ER 05:56 → MS 10:47 → OBSVTOIN 10:47 → INTOOBSV 10:47
PROVIDERS: ADMIT Nurse Practitioner Family; ATTEND Nurse Practitioner Acute Care
DX: R41.82 Altered mental status, unspecified (principal); R82.71 Bacteriuria; R74.8 Abnormal levels of other serum enzymes; N17.9 Acute kidney failure, unspecified; E86.0 Dehydration; E11.65 Type 2 diabetes mellitus with hyperglycemia; I13.0 Hypertensive heart and chronic kidney disease with heart failure and stage 1 through stage 4 chronic kidney disease, or unspecified chronic kidney disease; E11.22 Type 2 diabetes mellitus with diabetic chronic kidney disease; N18.9 Chronic kidney disease, unspecified; I50.9 Heart failure, unspecified; F03.91 Unspecified dementia, unspecified severity, with behavioral disturbance; M19.011 Primary osteoarthritis, right shoulder; E78.5 Hyperlipidemia, unspecified; I25.2 Old myocardial infarction; G93.89 Other specified disorders of brain; I34.0 Nonrheumatic mitral (valve) insufficiency; I36.1 Nonrheumatic tricuspid (valve) insufficiency; I44.39 Other atrioventricular block; I48.92 Unspecified atrial flutter; M85.811 Other specified disorders of bone density and structure, right shoulder; Z79.4 Long term (current) use of insulin; Z79.82 Long term (current) use of aspirin; Z79.01 Long term (current) use of anticoagulants; Z79.899 Other long term (current) drug therapy; Z85.828 Personal history of other malignant neoplasm of skin; Z88.0 Allergy status to penicillin; Z88.5 Allergy status to narcotic agent; Z88.8 Allergy status to other drugs, medicaments and biological substances
CPT/HCPCS: 96361 ×3; 96365; 96376 ×2; 96372 ×3; J0696 ×3; J1815 ×2; J7050 ×3; J7799 ×4; 80048; 80053; 82948 ×8; 36415 ×2; 81001; 85025; 83690; 84484; 83880; 36416 ×6; 71045; 73030; 70450; 94760; 94762; 99285; 93306; 70551; G0378

== ENCOUNTER 2019-03-13 09:47 | Emergency (ER) | payer MEDICARE, BC ==
--- NOTE | 2019-03-13 10:23 | ED.PDOC ---
History of Present Illness - General Chief Complaint: General Stated Complaint: Lethargy, weakness Time Seen by Provider: 03/13/19 09:49 - History of Present Illness Initial Comments: Rm3 CC: AMS 83 M positive past medical history presents via EMS to the ED from nursing care facility for altered mental status. Patient has a history of dementia and comes the ED with no complaints. He denies any chest pain, shortness breath, fever chills, nausea vomiting, any acute changes and diarrhea or urination, and any focal weakness, dizziness, headache. Allergies/Adverse Reactions: Allergies Hydrocodone Allergy (Verified 03/02/19 13:13) Penicillins Allergy (Verified 03/02/19 13:13) NSAIDs Adverse Reaction (Verified 03/02/19 13:13) Home Medications: Ambulatory Orders Citalopram Hydrobromide [Celexa] 20 mg PO BEDTIME 11/03/18 Clonidine HCl 0.3 mg PO Q6H PRN 11/03/18 Furosemide Tab [Lasix Tab] 20 mg PO QAM 11/03/18 Insulin Glargine [Lantus Solostar] 20 unit SC BEDTIME 11/03/18 Isosorbide Mononitrate [Isosorbide Mononitrate ER] 60 mg PO DAILY #30 tab 11/03/18 Levetiracetam 500 mg PO BEDTIME 11/03/18 Spironolactone 25 mg PO DAILY #30 tab 11/03/18 Donepezil Hydrochloride [Donepezil HCl] 10 mg PO DAILY 02/20/19 Epinephrine (Anaphylaxis) [Epinephrine] 0.3 mg IM Q12HR PRN 02/20/19 Memantine HCl 5 mg PO BID 02/20/19 Olmesartan Medoxomil 20 mg PO BID 02/20/19 Acetaminophen [Tylenol] 650 mg PO Q6HR PRN 02/23/19 Amlodipine Besylate 10 mg PO DAILY 02/23/19 Apixaban [Eliquis] 2.5 mg PO BID 02/23/19 Aspirin [Aspirin Low Strength] 81 mg PO DAILY 02/23/19 Carvedilol [Coreg] 12.5 mg PO BID 02/23/19 Cetirizine HCl 5 mg PO BEDTIME 02/23/19 Insulin Lispro [Humalog Kwikpen] See Protocol SC ACHS 02/23/19 Insulin Lispro [Humalog] 6 unit SUBCU TID 02/23/19 Nitroglycerin 0.4 mg Tab [Nitrostat] 0.4 mg SL Q5MIN PRN 02/23/19 Calcitriol 0.25 mcg PO MOWEFR 03/02/19 Cefdinir 300 mg PO BID #14 03/04/19 Review of Systems - Review of Systems Constitutional: Denies: chills, fever Unable to Obtain Due To: other - reported to be altered, h/o dementia, pt w/o complaints Past Medical History (General) - Patient Medical History Hx Seizures: No Hx Stroke: No Hx Dementia: Yes Hx Asthma: No Hx of COPD: No Hx Cardiac Disorders: Yes - Hx AR; Hx DVT Hx Congestive Heart Failure: Yes Hx Pacemaker: No Hx Hypertension: Yes Hx Diabetes: Yes 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 Hx Hepatitis C: No Hx MRSA: No - Vaccination History Hx Tetanus, Diphtheria Vaccination: No Hx Influenza Vaccination: Yes Hx Pneumococcal Vaccination: Yes - Social History Hx Tobacco Use: No Hx Chewing Tobacco Use: No Hx Alcohol Use: No Hx Substance Use: No Hx Substance Use Treatment: No Hx Depression: No Hx Physical Abuse: No Hx Emotional Abuse: No - Activities of Daily Living [facility]isted [facility] (if applicable[facility]:: [facility] Family Medical History - Family History Mother Family History: Unknown Living Status: Physical Exam - Physical Exam General Appearance: Alert, Comfortable Ears, Nose, Throat: normal ENT inspection Neck: non-tender, full range of motion, supple Respiratory: lungs clear, normal breath sounds, no respiratory distress, no accessory muscle use, respiratory distress Cardiovascular/Chest: normal peripheral pulses, regular rate, rhythm, no edema, no JVD, no murmur Gastrointestinal/Abdominal: normal bowel sounds, non tender, soft Back Exam: no CVA tenderness Extremity: normal range of motion, non-tender, normal inspection Neurologic: director wholesale II-XII nml as tested, no motor/sensory deficits, alert, normal mood/affect Skin Exam: normal color, warm/dry Comments: NIHSS score: 0 Progress - Progress Progress: 03/13/19 11:01 EKG: read @1006: Afib @ 66, nl axis, QT/QTc wnl, no ST elevations/depressions, nonspecific ST/T-wave changes. No STEMI. No change compared with prior EKG of 03/02/2019. 03/13/19 ~11:13 I have consulted with hospitalist Yuly Thomson, discussed pt's case in ED along with current findings and diagnoses of AMS, acute on chronic renal failure, and NSTEMI. She requests repeat troponin prior to admission, as if troponin is elevating then pt will require transfer for higher level of care. 03/13/19 12:21 I have consulted with the hospitalist again for admission, and she will call back shortly. 03/13/19 14:24 I have consulted with hospitalist at [facility] in [facility], discussed pt's case in ED along with current findings and diagnoses of AMS, acute on chronic renal failure, and NSTEMI. She requests repeat troponin prior to admission, as if troponin is elevating then pt will require transfer for higher level of care. Pt being admitted to PCU bed 921. Departure - Departure Clinical Impression: NSTEMI (non-ST elevated myocardial infarction) Altered mental status Qualifiers: Altered mental status type: disorientation Qualified Code(s): R41.0 - Disorientation, unspecified Acute on chronic renal failure Qualifiers: Acute renal failure type: unspecified Chronic kidney disease stage: unspecified stage Qualified Code(s): N17.9 - Acute kidney failure, unspecified Time of Disposition: 12:20 Disposition: Transfer to Hospital Condition: Good Departure Forms: ED Discharge - Pt. Copy, Patient Portal Self Enrollment Referrals: Mike Tolliver MD [Primary Care Provider] - 1-2 Weeks Home Medications: Ambulatory Orders Citalopram Hydrobromide [Celexa] 20 mg PO BEDTIME 11/03/18 Clonidine HCl 0.3 mg PO Q6H PRN 11/03/18 Furosemide Tab [Lasix Tab] 20 mg PO QAM 11/03/18 Insulin Glargine [Lantus Solostar] 20 unit SC BEDTIME 11/03/18 Isosorbide Mononitrate [Isosorbide Mononitrate ER] 60 mg PO DAILY #30 tab 11/03/18 Levetiracetam 500 mg PO BEDTIME 11/03/18 Spironolactone 25 mg PO DAILY #30 tab 11/03/18 Donepezil Hydrochloride [Donepezil HCl] 10 mg PO DAILY 02/20/19 Epinephrine (Anaphylaxis) [Epinephrine] 0.3 mg IM Q12HR PRN 02/20/19 Memantine HCl 5 mg PO BID 02/20/19 Olmesartan Medoxomil 20 mg PO BID 02/20/19 Acetaminophen [Tylenol] 650 mg PO Q6HR PRN 02/23/19 Amlodipine Besylate 10 mg PO DAILY 02/23/19 Apixaban [Eliquis] 2.5 mg PO BID 02/23/19 Aspirin [Aspirin Low Strength] 81 mg PO DAILY 02/23/19 Carvedilol [Coreg] 12.5 mg PO BID 02/23/19 Cetirizine HCl 5 mg PO BEDTIME 02/23/19 Insulin Lispro [Humalog Kwikpen] See Protocol SC ACHS 02/23/19 Insulin Lispro [Humalog] 6 unit SUBCU TID 02/23/19 Nitroglycerin 0.4 mg Tab [Nitrostat] 0.4 mg SL Q5MIN PRN 02/23/19 Calcitriol 0.25 mcg PO MOWEFR 03/02/19 Cefdinir 300 mg PO BID #14 03/04/19 Comments: Deejay Lang 738 Critical Care Note - Critical Care Note Total Time (mins): 118 Transfer to Outside Facility - Transfer Information Accepting Facility: [facility] Reason for Transfer: specialized care not available - MOT signed
--- NOTE | 2019-03-13 10:36 | CT ---
PROVIDED CLINICAL HISTORY/REASON FOR EXAM: ams, headache TECHNIQUE: Volumetric CT data of the brain was obtained without intravenous contrast. This exam was performed according to our departmental dose-optimization program, which includes automated exposure control, adjustment of the mA and/or kV according to patient size and/or use of iterative reconstruction technique. COMPARISON: March 02, 2019 FINDINGS: Similar age-related volume loss and chronic small vessel ischemic disease. Septum pellucidum and third ventricle are midline. No acute infarction is evident by CT. No acute hemorrhage is present. No mass or mass effect is present. The calvaria and soft tissues are unremarkable. The visualized paranasal sinuses are unremarkable. IMPRESSION: No acute intracranial abnormalities. Electronically signed by: Stef Vázquez MD 03/13/2019 10:34 AM CDT
[2019-03-13 14:53] VITALS: O2SAT 95
[2019-03-13 16:59] VITALS: BP 146/81; TEMP 97.1
== END 2019-03-13 16:20 | disposition short-term general hospital (02) ==
LOC: ER 09:47
DX: I21.4 Non-ST elevation (NSTEMI) myocardial infarction (principal); R41.0 Disorientation, unspecified; I48.91 Unspecified atrial fibrillation; F03.90 Unspecified dementia, unspecified severity, without behavioral disturbance, psychotic disturbance, mood disturbance, and anxiety; I25.2 Old myocardial infarction; I50.9 Heart failure, unspecified; I11.0 Hypertensive heart disease with heart failure; E11.9 Type 2 diabetes mellitus without complications; Z86.718 Personal history of other venous thrombosis and embolism; Z85.828 Personal history of other malignant neoplasm of skin; Z88.5 Allergy status to narcotic agent; Z88.0 Allergy status to penicillin; Z88.6 Allergy status to analgesic agent; Z79.899 Other long term (current) drug therapy; Z79.4 Long term (current) use of insulin; Z79.82 Long term (current) use of aspirin

== ENCOUNTER 2019-04-04 13:37 | Emergency (ER) | payer MEDICARE, BC ==
--- NOTE | 2019-04-04 14:03 | ED.PDOC ---
History of Present Illness - General Time Seen by Provider: 04/04/19 13:48 - History of Present Illness Initial Comments: 84 yo M PMH Dementia and NSTEMI last month presents to ED after near syncopal episode nausea vomiting with hypotension this morning after a walk at the [facility] home. Pt. is a poor hitoria EKG shows afib at 57bpm with slow ventricular response concerning morphology leads II III and aVF with reciprical changes vs inverted TW in lead I,aVL. Pt. also was diaphoretic reports he was 'sick to his stomach and vomited' Denies current chest pain but poor historian. Otherwise offers no other c/o today. Allergies/Adverse Reactions: Allergies Hydrocodone Allergy (Verified 03/02/19 13:13) Penicillins Allergy (Verified 03/02/19 13:13) NSAIDs Adverse Reaction (Verified 03/02/19 13:13) Home Medications: Ambulatory Orders Citalopram Hydrobromide [Celexa] 20 mg PO BEDTIME 11/03/18 Clonidine HCl 0.3 mg PO Q6H PRN 11/03/18 Furosemide Tab [Lasix Tab] 20 mg PO QAM 11/03/18 Insulin Glargine [Lantus Solostar] 20 unit SC BEDTIME 11/03/18 Isosorbide Mononitrate [Isosorbide Mononitrate ER] 60 mg PO DAILY #30 tab 11/03/18 Levetiracetam 500 mg PO BEDTIME 11/03/18 Spironolactone 25 mg PO DAILY #30 tab 11/03/18 Donepezil Hydrochloride [Donepezil HCl] 10 mg PO DAILY 02/20/19 Epinephrine (Anaphylaxis) [Epinephrine] 0.3 mg IM Q12HR PRN 02/20/19 Memantine HCl 5 mg PO BID 02/20/19 Olmesartan Medoxomil 20 mg PO BID 02/20/19 Acetaminophen [Tylenol] 650 mg PO Q6HR PRN 02/23/19 Amlodipine Besylate 10 mg PO DAILY 02/23/19 Apixaban [Eliquis] 2.5 mg PO BID 02/23/19 Aspirin [Aspirin Low Strength] 81 mg PO DAILY 02/23/19 Carvedilol [Coreg] 12.5 mg PO BID 02/23/19 Cetirizine HCl 5 mg PO BEDTIME 02/23/19 Insulin Lispro [Humalog Kwikpen] See Protocol SC ACHS 02/23/19 Insulin Lispro [Humalog] 6 unit SUBCU TID 02/23/19 Nitroglycerin 0.4 mg Tab [Nitrostat] 0.4 mg SL Q5MIN PRN 02/23/19 Calcitriol 0.25 mcg PO MOWEFR 03/02/19 Cefdinir 300 mg PO BID #14 03/04/19 Review of Systems - Review of Systems Constitutional: States: see HPI EENTM: States: see HPI Respiratory: States: see HPI Cardiology: States: see HPI Gastrointestinal/Abdominal: States: see HPI Genitourinary: States: see HPI Musculoskeletal: States: see HPI Skin: States: see HPI Neurological: States: see HPI Endocrine: States: see HPI Hematologic/Lymphatic: States: see HPI Past Medical History (General) - Patient Medical History Hx Seizures: No Hx Stroke: No Hx Dementia: Yes Hx Asthma: No Hx of COPD: No Hx Cardiac Disorders: Yes - Hx RI; Hx DVT Hx Congestive Heart Failure: Yes Hx Pacemaker: No Hx Hypertension: Yes Hx Diabetes: Yes 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 Hx Hepatitis C: No Hx MRSA: No - Vaccination History Hx Tetanus, Diphtheria Vaccination: No Hx Influenza Vaccination: Yes Hx Pneumococcal Vaccination: Yes - Social History Hx Tobacco Use: No Hx Chewing Tobacco Use: No Hx Alcohol Use: No Hx Substance Use: No Hx Substance Use Treatment: No Hx Depression: No Hx Physical Abuse: No Hx Emotional Abuse: No Family Medical History - Family History Mother Family History: Unknown Living Status: Physical Exam - Physical Exam General Appearance: No apparent distress Eyes, Ears, Nose, Throat Exam: normal ENT inspection Neck: non-tender, full range of motion Respiratory: normal breath sounds Cardiovascular/Chest: bradycardia, irregularly irregular Gastrointestinal/Abdominal: non tender, soft Rectal Exam: deferred Extremity: normal range of motion, non-tender Neurologic: no motor/sensory deficits Skin Exam: diaphoresis Progress - Progress Progress: 04/04/19 14:04 A/P-AFib with slow ventricular response, Syncope, Hypertension- IV classroom monitor pulse ox bolus cbc cmp lipase trop ekg cxr TRANSFER accepting Dr. Dr. Marino, 02:05pm Kitchen Hand Dr. Marroquin Departure - Departure Clinical Impression: Atrial fibrillation by electrocardiogram, Syncope and collapse, Abnormal EKG Hypotension Qualifiers: Hypotension type: other hypotension type Qualified Code(s): I95.89 - Other hypotension Time of Disposition: 14:09 Disposition: Transfer to Hospital Condition: Fair Referrals: Mike Tolliver MD [Primary Care Provider] - 1-2 Weeks Home Medications: Ambulatory Orders Citalopram Hydrobromide [Celexa] 20 mg PO BEDTIME 11/03/18 Clonidine HCl 0.3 mg PO Q6H PRN 11/03/18 Furosemide Tab [Lasix Tab] 20 mg PO QAM 11/03/18 Insulin Glargine [Lantus Solostar] 20 unit SC BEDTIME 11/03/18 Isosorbide Mononitrate [Isosorbide Mononitrate ER] 60 mg PO DAILY #30 tab 11/03/18 Levetiracetam 500 mg PO BEDTIME 11/03/18 Spironolactone 25 mg PO DAILY #30 tab 11/03/18 Donepezil Hydrochloride [Donepezil HCl] 10 mg PO DAILY 02/20/19 Epinephrine (Anaphylaxis) [Epinephrine] 0.3 mg IM Q12HR PRN 02/20/19 Memantine HCl 5 mg PO BID 02/20/19 Olmesartan Medoxomil 20 mg PO BID 02/20/19 Acetaminophen [Tylenol] 650 mg PO Q6HR PRN 02/23/19 Amlodipine Besylate 10 mg PO DAILY 02/23/19 Apixaban [Eliquis] 2.5 mg PO BID 02/23/19 Aspirin [Aspirin Low Strength] 81 mg PO DAILY 02/23/19 Carvedilol [Coreg] 12.5 mg PO BID 02/23/19 Cetirizine HCl 5 mg PO BEDTIME 02/23/19 Insulin Lispro [Humalog Kwikpen] See Protocol SC ACHS 02/23/19 Insulin Lispro [Humalog] 6 unit SUBCU TID 02/23/19 Nitroglycerin 0.4 mg Tab [Nitrostat] 0.4 mg SL Q5MIN PRN 02/23/19 Calcitriol 0.25 mcg PO MOWEFR 03/02/19 Cefdinir 300 mg PO BID #14 03/04/19 Transfer to Outside Facility - Transfer Information Decision to Transfer Date: 04/04/19 Decision to Transfer Time: 14:06 Reason for Transfer: specialized care not available Accepting Provider:: Dr. Marino 02:05pm Accepting Facility: [facility]
[2019-04-04 14:16] VITALS: TEMP 96.2
[2019-04-04] MEDS: SODIUM CHLORIDE 0.9% 1000ML 1,000 ML IVS ONE (14:41)
[2019-04-04 15:05] VITALS: BP 131/71; O2SAT 99
== END 2019-04-04 14:46 | disposition short-term general hospital (02) ==
LOC: ER 13:37
DX: I95.89 Other hypotension (principal); R55 Syncope and collapse; I48.91 Unspecified atrial fibrillation; R94.31 Abnormal electrocardiogram [ECG] [EKG]; R11.2 Nausea with vomiting, unspecified; E11.9 Type 2 diabetes mellitus without complications; F03.90 Unspecified dementia, unspecified severity, without behavioral disturbance, psychotic disturbance, mood disturbance, and anxiety; I25.2 Old myocardial infarction; I50.9 Heart failure, unspecified; I11.0 Hypertensive heart disease with heart failure; Z86.718 Personal history of other venous thrombosis and embolism; Z79.4 Long term (current) use of insulin; Z79.82 Long term (current) use of aspirin; Z79.01 Long term (current) use of anticoagulants; Z79.899 Other long term (current) drug therapy; Z85.828 Personal history of other malignant neoplasm of skin; Z88.6 Allergy status to analgesic agent; Z88.0 Allergy status to penicillin; Z88.5 Allergy status to narcotic agent
CPT/HCPCS: 80053; 83690; 83880; 84484; 85025; 85610; 85730; 93005; J7030

== ENCOUNTER 2019-07-26 12:31 | Emergency (ER) | payer MEDICARE, BC ==
--- NOTE | 2019-07-26 12:53 | ED.PDOC ---
History of Present Illness - General Chief Complaint: Syncope/Near Syncope Stated Complaint: SYNCOPAL EPISODE Time Seen by Provider: 07/26/19 12:45 - History of Present Illness Initial Comments: 84 yo M PMH Dementia AFib on Eloquis presents to ED [facility] from assisted living facility for syncopal episode this AM. Did not hit head denies fever chills nausea admits one episode of vomiting this am no blood denies diarrhea chest pain sob diaphoresis. No change in diet rest bowel or bladder. Admits past h/o smoking and drinking not currently admits FH DM unknown FH HTN has no PMD for follow up no other c/o today. Allergies/Adverse Reactions: Allergies Hydrocodone Allergy (Verified 07/26/19 12:50) Penicillins Allergy (Verified 07/26/19 12:50) NSAIDs Adverse Reaction (Verified 07/26/19 12:50) Home Medications: Ambulatory Orders Citalopram Hydrobromide [Celexa] 20 mg PO BEDTIME 11/03/18 Clonidine HCl 0.3 mg PO Q6H PRN 11/03/18 Furosemide Tab [Lasix Tab] 20 mg PO QAM 11/03/18 Insulin Glargine [Lantus Solostar] 20 unit SC BEDTIME 11/03/18 Isosorbide Mononitrate [Isosorbide Mononitrate ER] 60 mg PO DAILY #30 tab 11/03/18 Levetiracetam 500 mg PO BEDTIME 11/03/18 Spironolactone 25 mg PO DAILY #30 tab 11/03/18 Donepezil Hydrochloride [Donepezil HCl] 10 mg PO DAILY 02/20/19 Epinephrine (Anaphylaxis) [Epinephrine] 0.3 mg IM Q12HR PRN 02/20/19 Memantine HCl 5 mg PO BID 02/20/19 Olmesartan Medoxomil 20 mg PO BID 02/20/19 Acetaminophen [Tylenol] 650 mg PO Q6HR PRN 02/23/19 Amlodipine Besylate 10 mg PO DAILY 02/23/19 Apixaban [Eliquis] 2.5 mg PO BID 02/23/19 Aspirin [Aspirin Low Strength] 81 mg PO DAILY 02/23/19 Carvedilol [Coreg] 12.5 mg PO BID 02/23/19 Cetirizine HCl 5 mg PO BEDTIME 02/23/19 Insulin Lispro [Humalog Kwikpen] See Protocol SC ACHS 02/23/19 Insulin Lispro [Humalog] 6 unit SUBCU TID 02/23/19 Nitroglycerin 0.4 mg Tab [Nitrostat] 0.4 mg SL Q5MIN PRN 02/23/19 Calcitriol 0.25 mcg PO MOWEFR 03/02/19 Cefdinir 300 mg PO BID #14 03/04/19 Review of Systems - Review of Systems Constitutional: States: see HPI EENTM: States: see HPI Respiratory: States: see HPI Cardiology: States: see HPI Gastrointestinal/Abdominal: States: see HPI Genitourinary: States: see HPI Musculoskeletal: States: see HPI Skin: States: see HPI Neurological: States: see HPI Endocrine: States: see HPI Hematologic/Lymphatic: States: see HPI All other Systems: Reviewed and Negative Past Medical History (General) - Patient Medical History Hx Seizures: No Hx Stroke: No Hx Dementia: Yes Hx Asthma: No Hx of COPD: No Hx Cardiac Disorders: Yes - Hx AR; Hx DVT Hx Congestive Heart Failure: Yes Hx Pacemaker: No Hx Hypertension: Yes Hx Diabetes: Yes 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 Hx Hepatitis C: No Hx MRSA: No - Vaccination History Hx Tetanus, Diphtheria Vaccination: No Hx Influenza Vaccination: Yes Hx Pneumococcal Vaccination: Yes - Social History Hx Tobacco Use: No Hx Chewing Tobacco Use: No Hx Alcohol Use: No Hx Substance Use: No Hx Substance Use Treatment: No Hx Depression: No Hx Physical Abuse: No Hx Emotional Abuse: No Family Medical History - Family History Mother Family History: Unknown Living Status: Physical Exam - Physical Exam General Appearance: No apparent distress Eye Exam: bilateral normal Ears, Nose, Throat: normal ENT inspection Neck: non-tender, full range of motion Respiratory: lungs clear, normal breath sounds Cardiovascular/Chest: irregularly irregular Gastrointestinal/Abdominal: non tender, soft Rectal Exam: deferred Extremity: normal inspection Neurologic: no motor/sensory deficits Skin Exam: normal color Progress - Progress Progress: 07/26/19 12:54 A/[id number] bolus c collar ct head ct c spine rn cardiac rehab pulse ox ekg cxr xr pelvis cbc cmp lipase trop ua reassess 07/26/19 13:26 EKG-rate controlled AFib irregularly irregular rhythm at 72bpm 07/26/19 13:32 Laboratory Tests 07/26/19 07/26/19 07/26/19 12:05 12:05 12:05 WBC 6.3 RBC 5.26 Hgb 16.0 Hct 48.3 MCV 91.8 MCH 30.5 MCHC 33.2 RDW 14.2 Plt Count 250 MPV 8.9 Absolute Neuts (auto) 3.70 Absolute Lymphs (auto) 1.90 Absolute Monos (auto) 0.40 Absolute Eos (auto) 0.30 Absolute Basos (auto) 0.00 Neutrophils % 58.5 Lymphocytes % 29.8 Monocytes % 7.0 Eosinophils % 4.0 Basophils % 0.7 PT 10.6 INR 1.07 PTT (SP) 24.3 Sodium Potassium Chloride Carbon Dioxide Anion Gap BUN Creatinine BUN/Creatinine Ratio Random Glucose Serum Osmolality Lactic Acid Calcium Total Bilirubin AST ALT Alkaline Phosphatase Troponin I Serum Total Protein Albumin Globulin Albumin/Globulin Ratio Lipase 52 H 07/26/19 07/26/19 07/26/19 12:05 12:50 12:50 WBC RBC Hgb Hct MCV MCH MCHC RDW Plt Count MPV Absolute Neuts (auto) Absolute Lymphs (auto) Absolute Monos (auto) Absolute Eos (auto) Absolute Basos (auto) Neutrophils % Lymphocytes % Monocytes % Eosinophils % Basophils % PT INR PTT (SP) Sodium 136 Potassium 4.6 Chloride 108 Carbon Dioxide 20 L Anion Gap 12.6 BUN 38 H Creatinine 1.80 H BUN/Creatinine Ratio 21.1 H Random Glucose 205 H Serum Osmolality 286.9 Lactic Acid 1.2 Calcium 8.9 Total Bilirubin 1.1 H AST 21 ALT 25 Alkaline Phosphatase 59 Troponin I 0.23 H* Serum Total Protein 6.6 Albumin 3.5 Globulin 3.1 Albumin/Globulin Ratio 1.1 Lipase Pt. is DNR, elevated troponin vs NSTEMI 07/26/19 14:23 EXAM DESCRIPTION: Cervical Spine CLINICAL HISTORY: trauma COMPARISON: None Available. TECHNIQUE: Cervical CT is performed with thin-section axial imaging. MPRs are created and reviewed as well. FINDINGS: Axial bone window images r eveal intact ring of C1. No abnormal widening of the atlantodens interval. No fracture of the vertebral bodies or transverse processes or posterior elements. Lung apices appear clear. No cervical mass or adenopathy. Sagittal reformatted images show slight reversal of the normal cervical lordosis. Otherwise normal alignment of vertebral bodies and facets. No jumped facet or facet fracture. Normal craniocervical alignment. No prevertebral soft tissue swelling. No a avulsion of the spinous processes. Spondylosis: Thickened transverse ligament calcification narrows the upper cervical canal and posteriorly displaces the cord. Most prominent posterior disc/osteophyte complexes as seen on the sagittal images are at C4-5 through C6-7. MRI may be helpful to evaluate cord. In addition, there is marked bilateral neural foraminal narrowing at these levels related to uncinate spurring. Advanced arthritic changes are seen with multilevel disc/osteophyte complexes causing moderate spinal stenosis and significant neural foraminal narrowing. Marked anterior spurring at the disc levels of the lower C-spine. Moderate facet degenerative spurring. Large facet osteophytes on the left at C2-3 than on the right at C3-4. Coronal reformatted images show normal atlantooccipital and atlantoaxial alignment. The base of the dens is intact as is the body of C2. Intact lateral masses. IMPRESSION: Negative for fracture or posttraumatic subluxation. Degenerative changes as described. This exam was performed according to our departmental dose- optimization program, which includes automated exposure control, adjustment of the mA and/or kV according to patient size and/or use of iterative reconstruction technique. Total DLP equals 329.03 mGycm. Electronically signed by: Rick Reyes MD 07/26/2019 2:09 PM [facility] EXAM DESCRIPTION: CT head without contrast CLINICAL HISTORY: trauma COMPARISON: None available TECHNIQUE: Noncontrast head CT was performed with routine protocol. 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 Otherwise normal conroy-white matter differentiation. Ventricles and sulci are prominent consistent with age-related cerebral volume loss. Low density of the periventricular white matter consistent with chronic microvascular ischemic disease. No high density hemorrhage, focal edema or shift of the midline. No sulcal effacement. Normal orbital contents. Basilar cisterns appear clear. Intact calvarium with no fracture or lytic lesion. Normal aeration of tympanic cavities and mastoid air cells. No fluid levels in the paranasal sinuses. Skull base appears intact. Symmetrical internal auditory canals. Coronal and sagittal reformatted images confirm the findings. Right frontal low density consistent with old infarction as seen on coronal images. Compared to the previous study, this was present at that time as well. IMPRESSION: No acute intracranial pathologic process. This exam was performed according to our departmental dose-optimization program, which includes automated exposure control, adjustment of the mA and/or kV according to patient size and/or use of iterative reconstruction technique. Total DLP equals 859.97 mGycm. Electronically signed by: Rick Reyes MD 07/26/2019 2:00 PM [facility] EXAM DESCRIPTION: Chest,1 View CLINICAL HISTORY: 84 years Male, near syncope COMPARISON: Previous study March 02, 2019 TECHNIQUE: AP portable chest. FINDINGS: Heart size is prominent with normal pulmonary vascularity. Surgical clips in the lower neck. No consolidating infiltrate. No pulmonary mass or worrisome nodule. No pneumothorax or pleural effusion. Bones are unremarkable. IMPRESSION: No acute process is identified in the chest. Electronically signed by: Rick Reyes MD 07/26/2019 2:09 PM [facility] EXAM DESCRIPTION: Pelvis CLINICAL HISTORY: 84 years Male, trauma COMPARISON: None. FINDINGS: Single AP view of the pelvis is negative for fracture. Intact bony pelvic ring and proximal femurs. Degenerative changes at the hip joints and SI joints and in the lower lumbar spine. IMPRESSION: Negative for fracture. Electronically signed by: Rick Reyes MD 07/26/2019 2:10 PM [facility] Laboratory Tests 07/26/19 07/26/19 07/26/19 12:05 12:05 12:05 WBC 6.3 RBC 5.26 Hgb 16.0 Hct 48.3 MCV 91.8 MCH 30.5 MCHC 33.2 RDW 14.2 Plt Count 250 MPV 8.9 Absolute Neuts (auto) 3.70 Absolute Lymphs (auto) 1.90 Absolute Monos (auto) 0.40 Absolute Eos (auto) 0.30 Absolute Basos (auto) 0.00 Neutrophils % 58.5 Lymphocytes % 29.8 Monocytes % 7.0 Eosinophils % 4.0 Basophils % 0.7 PT 10.6 INR 1.07 PTT (SP) 24.3 Sodium Potassium Chloride Carbon Dioxide Anion Gap BUN Creatinine BUN/Creatinine Ratio Random Glucose Serum Osmolality Lactic Acid Calcium Total Bilirubin AST ALT Alkaline Phosphatase Troponin I B-Natriuretic Peptide Serum Total Protein Albumin Globulin Albumin/Globulin Ratio Lipase 52 H 07/26/19 07/26/19 07/26/19 12:05 12:50 12:50 WBC RBC Hgb Hct MCV MCH MCHC RDW Plt Count MPV Absolute Neuts (auto) Absolute Lymphs (auto) Absolute Monos (auto) Absolute Eos (auto) Absolute Basos (auto) Neutrophils % Lymphocytes % Monocytes % Eosinophils % Basophils % PT INR PTT (SP) Sodium 136 Potassium 4.6 Chloride 108 Carbon Dioxide 20 L Anion Gap 12.6 BUN 38 H Creatinine 1.80 H BUN/Creatinine Ratio 21.1 H Random Glucose 205 H Serum Osmolality 286.9 Lactic Acid 1.2 Calcium 8.9 Total Bilirubin 1.1 H AST 21 ALT 25 Alkaline Phosphatase 59 Troponin I 0.23 H* B-Natriuretic Peptide Serum Total Protein 6.6 Albumin 3.5 Globulin 3.1 Albumin/Globulin Ratio 1.1 Lipase 07/26/19 12:55 WBC RBC Hgb Hct MCV MCH MCHC RDW Plt Count MPV Absolute Neuts (auto) Absolute Lymphs (auto) Absolute Monos (auto) Absolute Eos (auto) Absolute Basos (auto) Neutrophils % Lymphocytes % Monocytes % Eosinophils % Basophils % PT INR PTT (SP) Sodium Potassium Chloride Carbon Dioxide Anion Gap BUN Creatinine BUN/Creatinine Ratio Random Glucose Serum Osmolality Lactic Acid Calcium Total Bilirubin AST ALT Alkaline Phosphatase Troponin I B-Natriuretic Peptide 459.0 H* Serum Total Protein Albumin Globulin Albumin/Globulin Ratio Lipase 07/26/19 14:33 Spoke to Daughter Ms. Martin and discussed plan to Transfer to 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 Osullivan of [facility] who accepts patient at 02:47 pm 07/26/19 14:47 Departure - Departure Clinical Impression: NSTEMI (non-ST elevated myocardial infarction), Elevated troponin Syncope Qualifiers: Syncope type: unspecified Qualified Code(s): R55 - Syncope and collapse Afib Qualifiers: Atrial fibrillation type: unspecified Qualified Code(s): I48.91 - Unspecified atrial fibrillation Time of Disposition: 14:49 Disposition: Transfer to Hospital Condition: Fair Departure Forms: ED Discharge - Pt. Copy, Patient Portal Self Enrollment Referrals: Mike Tolliver MD [Primary Care Provider] - 1-2 Days Home Medications: Ambulatory Orders Citalopram Hydrobromide [Celexa] 20 mg PO BEDTIME 11/03/18 Clonidine HCl 0.3 mg PO Q6H PRN 11/03/18 Furosemide Tab [Lasix Tab] 20 mg PO QAM 11/03/18 Insulin Glargine [Lantus Solostar] 20 unit SC BEDTIME 11/03/18 Isosorbide Mononitrate [Isosorbide Mononitrate ER] 60 mg PO DAILY #30 tab 11/03/18 Levetiracetam 500 mg PO BEDTIME 11/03/18 Spironolactone 25 mg PO DAILY #30 tab 11/03/18 Donepezil Hydrochloride [Donepezil HCl] 10 mg PO DAILY 02/20/19 Epinephrine (Anaphylaxis) [Epinephrine] 0.3 mg IM Q12HR PRN 02/20/19 Memantine HCl 5 mg PO BID 02/20/19 Olmesartan Medoxomil 20 mg PO BID 02/20/19 Acetaminophen [Tylenol] 650 mg PO Q6HR PRN 02/23/19 Amlodipine Besylate 10 mg PO DAILY 02/23/19 Apixaban [Eliquis] 2.5 mg PO BID 02/23/19 Aspirin [Aspirin Low Strength] 81 mg PO DAILY 02/23/19 Carvedilol [Coreg] 12.5 mg PO BID 02/23/19 Cetirizine HCl 5 mg PO BEDTIME 02/23/19 Insulin Lispro [Humalog Kwikpen] See Protocol SC ACHS 02/23/19 Insulin Lispro [Humalog] 6 unit SUBCU TID 02/23/19 Nitroglycerin 0.4 mg Tab [Nitrostat] 0.4 mg SL Q5MIN PRN 02/23/19 Calcitriol 0.25 mcg PO MOWEFR 03/02/19 Cefdinir 300 mg PO BID #14 03/04/19 Transfer to Outside Facility - Transfer Information Decision to Transfer Date: 07/26/19 Decision to Transfer Time: 14:49 Reason for Transfer: specialized care not available Accepting Provider:: Dr. Clement at 02:47pm Accepting Facility: [facility]
[2019-07-26] MEDS: SODIUM CHLORIDE 0.9% 1000ML 1,000 ML IVS ONE (13:42)
--- NOTE | 2019-07-26 14:02 | CT ---
EXAM DESCRIPTION: CT head without contrast CLINICAL HISTORY: trauma COMPARISON: None available TECHNIQUE: Noncontrast head CT was performed with routine protocol. 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 Otherwise normal conroy-white matter differentiation. Ventricles and sulci are prominent consistent with age-related cerebral volume loss. Low density of the periventricular white matter consistent with chronic microvascular ischemic disease. No high density hemorrhage, focal edema or shift of the midline. No sulcal effacement. Normal orbital contents. Basilar cisterns appear clear. Intact calvarium with no fracture or lytic lesion. Normal aeration of tympanic cavities and mastoid air cells. No fluid levels in the paranasal sinuses. Skull base appears intact. Symmetrical internal auditory canals. Coronal and sagittal reformatted images confirm the findings. Right frontal low density consistent with old infarction as seen on coronal images. Compared to the previous study, this was present at that time as well. IMPRESSION: No acute intracranial pathologic process. This exam was performed according to our departmental dose-optimization program, which includes automated exposure control, adjustment of the mA and/or kV according to patient size and/or use of iterative reconstruction technique. Total DLP equals 859.97 mGycm. Electronically signed by: Rick Reyes MD 07/26/2019 2:00 PM [facility]
--- NOTE | 2019-07-26 14:10 | CT ---
EXAM DESCRIPTION: Cervical Spine CLINICAL HISTORY: trauma COMPARISON: None Available. TECHNIQUE: Cervical CT is performed with thin-section axial imaging. MPRs are created and reviewed as well. FINDINGS: Axial bone window images reveal intact ring of C1. No abnormal widening of the atlantodens interval. No fracture of the vertebral bodies or transverse processes or posterior elements. Lung apices appear clear. No cervical mass or adenopathy. Sagittal reformatted images show slight reversal of the normal cervical lordosis. Otherwise normal alignment of vertebral bodies and facets. No jumped facet or facet fracture. Normal craniocervical alignment. No prevertebral soft tissue swelling. No a avulsion of the spinous processes. Spondylosis: Thickened transverse ligament calcification narrows the upper cervical canal and posteriorly displaces the cord. Most prominent posterior disc/osteophyte complexes as seen on the sagittal images are at C4-5 through C6-7. MRI may be helpful to evaluate cord. In addition, there is marked bilateral neural foraminal narrowing at these levels related to uncinate spurring. Advanced arthritic changes are seen with multilevel disc/osteophyte complexes causing moderate spinal stenosis and significant neural foraminal narrowing. Marked anterior spurring at the disc levels of the lower C-spine. Moderate facet degenerative spurring. Large facet osteophytes on the left at C2-3 than on the right at C3-4. Coronal reformatted images show normal atlantooccipital and atlantoaxial alignment. The base of the dens is intact as is the body of C2. Intact lateral masses. IMPRESSION: Negative for fracture or posttraumatic subluxation. Degenerative changes as described. This exam was performed according to our departmental dose-optimization program, which includes automated exposure control, adjustment of the mA and/or kV according to patient size and/or use of iterative reconstruction technique. Total DLP equals 329.03 mGycm. Electronically signed by: Rick Reyes MD 07/26/2019 2:09 PM [employer]
--- NOTE | 2019-07-26 14:11 | RAD ---
EXAM DESCRIPTION: Chest,1 View CLINICAL HISTORY: 84 years Male, near syncope COMPARISON: Previous study March 02, 2019 TECHNIQUE: AP portable chest. FINDINGS: Heart size is prominent with normal pulmonary vascularity. Surgical clips in the lower neck. No consolidating infiltrate. No pulmonary mass or worrisome nodule. No pneumothorax or pleural effusion. Bones are unremarkable. IMPRESSION: No acute process is identified in the chest. Electronically signed by: Rick Reyes MD 07/26/2019 2:09 PM [facility]
--- NOTE | 2019-07-26 14:12 | RAD ---
EXAM DESCRIPTION: Pelvis CLINICAL HISTORY: 84 years Male, trauma COMPARISON: None. FINDINGS: Single AP view of the pelvis is negative for fracture. Intact bony pelvic ring and proximal femurs. Degenerative changes at the hip joints and SI joints and in the lower lumbar spine. IMPRESSION: Negative for fracture. Electronically signed by: Rick Reyes MD 07/26/2019 2:10 PM [facility] [place]
[2019-07-26 16:30] VITALS: BP 140/93; TEMP 97.2; O2SAT 98
== END 2019-07-26 16:30 | disposition short-term general hospital (02) ==
LOC: ER 12:31
DX: I21.4 Non-ST elevation (NSTEMI) myocardial infarction (principal); R55 Syncope and collapse; R79.89 Other specified abnormal findings of blood chemistry; I48.91 Unspecified atrial fibrillation; F03.90 Unspecified dementia, unspecified severity, without behavioral disturbance, psychotic disturbance, mood disturbance, and anxiety; I25.2 Old myocardial infarction; I50.9 Heart failure, unspecified; I11.0 Hypertensive heart disease with heart failure; M47.812 Spondylosis without myelopathy or radiculopathy, cervical region; M16.0 Bilateral primary osteoarthritis of hip; Z79.899 Other long term (current) drug therapy; Z79.4 Long term (current) use of insulin; Z79.82 Long term (current) use of aspirin; Z79.01 Long term (current) use of anticoagulants; Z86.718 Personal history of other venous thrombosis and embolism; Z85.828 Personal history of other malignant neoplasm of skin; Z88.5 Allergy status to narcotic agent; Z88.0 Allergy status to penicillin; Z88.6 Allergy status to analgesic agent; Z87.891 Personal history of nicotine dependence
CPT/HCPCS: 36415; 70450; 71045; 72125; 72170; 80053; 83605; 83690; 83880; 84484; 85025; 85610; 85730; 93005; J7030

== ENCOUNTER 2019-08-02 11:06 | Emergency (ER) | payer MEDICARE, BC ==
--- NOTE | 2019-08-02 11:41 | RAD ---
Study: Single Frontal Radiograph of the Chest. Indication:progressive generalized weakness Comparison: July 26, 2019 Impression: Heart size upper limits of normal without failure. Lung volumes low. Lungs otherwise clear. Multiple surgical clips lower neck. Degenerative changes of the shoulders and spine. Electronically signed by: Tan Pulliam MD 08/02/2019 11:40 AM [facility]
[2019-08-02] MEDS ORDERED: SODIUM CHLORIDE 0.9% 1000ML 1,000 ML IVS ONE ×2 (11:42→14:49)
[2019-08-02 19:06] VITALS: TEMP 97.4
[2019-08-02] MEDS ORDERED: INSULIN LISPRO 100 UNITS/ML PEN SUBCU ONE (20:05)
--- NOTE | 2019-08-02 21:01 | ED.PDOC ---
History of Present Illness - General Chief Complaint: General Stated Complaint: WEAKNESS Time Seen by Provider: 08/02/19 11:13 Source: patient, EMS notes reviewed, detention records Exam Limitations: other - Dementia - History of Present Illness Initial Comments: The patient is an 84-year-old male sent up to the emergency room secondary to progressive weakness over the last 2 or 3 days. He does have known cardiac issues. No focal neurological changes. He does have chronic dementia. He is pleasant but demented. He can answer simple yes/no questions quite well. He gets very dizzy and weak when standing. The patient is on several blood pressure and heart rate control medications as well as to diuretics. He does look fairly dry. No evidence whatsoever of any fluid overload. No fever. He has not hypoxic. No nausea vomiting or diarrhea. No cough or shortness of breath. No chest pain. Systolic blood pressure dropped from 105 down to 75 with standing. Timing/Duration: other Severity: moderate Improving Factors: nothing Worsening Factors: nothing Associated Symptoms: malaise Allergies/Adverse Reactions: Allergies Hydrocodone Allergy (Verified 07/26/19 12:50) Penicillins Allergy (Verified 07/26/19 12:50) NSAIDs Adverse Reaction (Verified 07/26/19 12:50) Home Medications: Ambulatory Orders Citalopram Hydrobromide [Celexa] 20 mg PO BEDTIME 11/03/18 Clonidine HCl 0.1 mg PO Q8HR PRN 11/03/18 Furosemide Tab [Lasix Tab] 20 mg PO BID 11/03/18 Insulin Glargine [Lantus Solostar] 10 unit SC DAILY 11/03/18 Isosorbide Mononitrate [Isosorbide Mononitrate ER] 60 mg PO DAILY #30 tab 11/03/18 Levetiracetam 500 mg PO BEDTIME 11/03/18 Donepezil Hydrochloride [Donepezil HCl] 10 mg PO DAILY 02/20/19 Epinephrine (Anaphylaxis) [Epinephrine] 0.3 mg IM Q12HR PRN 02/20/19 Memantine HCl 5 mg PO BID 02/20/19 Aspirin [Aspirin Low Strength] 81 mg PO DAILY 02/23/19 Carvedilol [Coreg] 6.25 mg PO BID 02/23/19 Cetirizine HCl 5 mg PO BEDTIME 02/23/19 Insulin Lispro [Humalog Kwikpen] See Protocol SC ACHS 02/23/19 Insulin Lispro [Humalog] 2 unit SUBCU TID 02/23/19 Nitroglycerin 0.4 mg Tab [Nitrostat] 0.4 mg SL Q5MIN PRN 02/23/19 Calcitriol 0.25 mcg PO MOWEFR 03/02/19 Apixaban [Eliquis] 2.5 mg PO DAILY 08/02/19 Benzonatate 100 mg PO Q8HR PRN 08/02/19 Guaifenesin [Guaifenesin ER] 600 mg PO TID 08/02/19 Lidocaine 5% Patch [Lidoderm Patch] 1 ea TOP DAILY 08/02/19 Olmesartan Medoxomil 5 mg PO DAILY 08/02/19 Spironolactone 12.5 mg PO DAILY 08/02/19 Tramadol HCl 50 mg PO Q6HR PRN 08/02/19 Review of Systems - Review of Systems Constitutional: States: malaise, weakness EENTM: States: no symptoms reported Respiratory: States: no symptoms reported Cardiology: States: no symptoms reported Gastrointestinal/Abdominal: States: no symptoms reported Genitourinary: States: no symptoms reported Musculoskeletal: States: no symptoms reported Skin: States: no symptoms reported Neurological: States: see HPI Endocrine: States: no symptoms reported All other Systems: No Change from Baseline Past Medical History (General) - Patient Medical History Hx Seizures: No Hx Stroke: No Hx Dementia: Yes Hx Asthma: No Hx of COPD: No Hx Cardiac Disorders: Yes - Hx NE; Hx DVT, AFIB Hx Congestive Heart Failure: Yes Hx Pacemaker: No Hx Hypertension: Yes Hx Thyroid Disease: No Hx Diabetes: Yes Hx Gastroesophageal Reflux: Yes 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 Hx Hepatitis C: No Hx MRSA: No - Vaccination History Hx Tetanus, Diphtheria Vaccination: No Hx Influenza Vaccination: Yes Hx Pneumococcal Vaccination: Yes - Social History Hx Tobacco Use: No Hx Chewing Tobacco Use: No Hx Alcohol Use: No Hx Substance Use: No Hx Substance Use Treatment: No Hx Depression: No Hx Physical Abuse: No Hx Emotional Abuse: No - Activities of Daily Living Snf/Assisted Living (if applicable):: [facility] Family Medical History - Family History Mother Family History: Unknown Living Status: Physical Exam - Physical Exam General Appearance: Alert, Comfortable, Frail, No apparent distress Eye Exam: bilateral normal Ears, Nose, Throat: hearing grossly normal, normal pharynx - Mucous membranes are fairly dry Neck: full range of motion, supple Respiratory: lungs clear, normal breath sounds, no respiratory distress, no accessory muscle use Cardiovascular/Chest: normal peripheral pulses, no edema, other - Regular rate Peripheral Pulses: radial,right: 2+, radial,left: 2+ Gastrointestinal/Abdominal: non tender, soft Rectal Exam: deferred Back Exam: no CVA tenderness, no vertebral tenderness Extremity: normal range of motion, non-tender, normal inspection, no pedal edema, normal capillary refill 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 He is confused on the date. He does remember me each time I go back to see him. He is appropriate and social interaction. Skin Exam: normal color Comments: Vital Signs - 24 hr 08/02/19 08/02/19 08/02/19 11:15 11:16 11:38 Temperature 96.8 F L Pulse Rate [ 53 L 58 L Pulse Ox] Respiratory 18 20 20 Rate Blood Pressure 106/59 99/71 [R Arm] O2 Sat by Pulse 97 96 Oximetry 08/02/19 08/02/19 08/02/19 11:39 11:40 12:00 Temperature Pulse Rate [ 58 L 63 Pulse Ox] Respiratory 20 20 Rate Blood Pressure 93/69 75/43 111/71 [R Arm] O2 Sat by Pulse 98 96 97 Oximetry 08/02/19 08/02/19 08/02/19 13:00 14:00 14:02 Temperature Pulse Rate [ 68 68 88 Pulse Ox] Respiratory 14 14 16 Rate Blood Pressure 107/71 110/71 106/72 [R Arm] O2 Sat by Pulse 98 97 94 L Oximetry 08/02/19 08/02/19 08/02/19 14:03 15:00 16:00 Temperature Pulse Rate [ 66 67 81 Pulse Ox] Respiratory 20 12 14 Rate Blood Pressure 104/69 135/71 136/63 [R Arm] O2 Sat by Pulse 94 L 97 100 Oximetry 08/02/19 08/02/19 08/02/19 17:00 18:00 19:00 Temperature 97.4 F L Pulse Rate [ 68 95 H 73 Pulse Ox] Respiratory 13 14 20 Rate Blood Pressure 139/86 139/73 146/72 [R Arm] O2 Sat by Pulse 97 96 94 L Oximetry 08/02/19 19:35 Temperature Pulse Rate [ 72 Pulse Ox] Respiratory 20 Rate Blood Pressure 127/78 [R Arm] O2 Sat by Pulse 94 L Oximetry Progress - Progress Progress: 08/02/19 21:03 The patient is an 84-year-old male presented emergency room secondary to generalized weakness progressive over the last 2 days. The patient is significantly dehydrated and markedly hypotensive when he goes to sit or stand. The patient has responded well to a liter and a half of IV fluids. No evidence of fluid overload with this. Blood pressures have corrected. He is now able to ambulate without difficulty. No other significant pathology has been found. We did wait an extra 6 hours in order to obtain a urinalysis. He was finally able to urinate. No evidence of any urinary tract infection. The patient will be released back to his long-term care facility. I do want him followed up with the facility doctor or his primary care doctor within 4 or 5 days. He does need to ambulate carefully to prevent falls. At this point in time I would recommend reducing his Lasix dose to a once daily dose. He may yet have to have other antihypertensive medications reduced if he continues to have orthostatic issues. He did receive a small insulin dose here for hypoglycemia. He has not yet received his evening medications. he will need those upon arrival at the detention. 08/02/19 21:05 day pelaez 747 - Results/Orders Results/Orders: EKG shows atrial fibrillation at a rate of 61 bpm. Normal axis. Normal R wave progression. No definitive ST segment or T wave changes indicative of acute ischemia. Borderline QT interval. This EKG is consistent with his previous EKG from earlier in the month. Chest x-ray shows no acute pathology. There is some mild cardiomegaly. Laboratory Tests 08/02/19 08/02/19 08/02/19 11:30 11:30 11:30 WBC 6.0 RBC 4.74 Hgb 14.3 Hct 43.3 MCV 91.2 MCH 30.2 MCHC 33.1 RDW 14.3 Plt Count 225 MPV 8.3 Absolute Neuts (auto) 4.10 Absolute Lymphs (auto) 1.20 Absolute Monos (auto) 0.40 Absolute Eos (auto) 0.30 Absolute Basos (auto) 0.00 Neutrophils % 67.7 Lymphocytes % 20.0 Monocytes % 7.4 Eosinophils % 4.3 Basophils % 0.6 PT 11.4 H INR 1.15 PTT (SP) 24.3 Sodium 137 Potassium 4.0 Chloride 110 Carbon Dioxide 22 Anion Gap 9.0 L BUN 29 H Creatinine 2.06 H BUN/Creatinine Ratio 14.1 POC Glucose Random Glucose 234 H Serum Osmolality 287.2 Lactic Acid Calcium 8.8 Magnesium 1.8 Total Bilirubin 0.9 AST 20 ALT 20 Alkaline Phosphatase 53 Creatine Kinase 28 L CK-MB (CK-2) 2.2 CK-MB (CK-2) % Not Reportable Troponin I 0.19 H* B-Natriuretic Peptide 240.0 H* Serum Total Protein 6.3 L Albumin 3.3 Globulin 3.0 Albumin/Globulin Ratio 1.1 TSH 5.30 Urine Color Urine Appearance Urine pH Ur Specific [place] Urine Protein Urine Glucose (UA) Urine Ketones Urine Blood Urine Nitrite Urine Bilirubin Urine Urobilinogen Ur Leukocyte Esterase Urine RBC Urine WBC Ur Epithelial Cells Urine Bacteria 08/02/19 08/02/19 08/02/19 11:30 20:04 20:29 WBC RBC Hgb Hct MCV MCH MCHC RDW Plt Count MPV Absolute Neuts (auto) Absolute Lymphs (auto) Absolute Monos (auto) Absolute Eos (auto) Absolute Basos (auto) Neutrophils % Lymphocytes % Monocytes % Eosinophils % Basophils % PT INR PTT (SP) Sodium Potassium Chloride Carbon Dioxide Anion Gap BUN Creatinine BUN/Creatinine Ratio POC Glucose 350 H Random Glucose Serum Osmolality Lactic Acid 1.4 Calcium Magnesium Total Bilirubin AST ALT Alkaline Phosphatase Creatine Kinase CK-MB (CK-2) CK-MB (CK-2) % Troponin I B-Natriuretic Peptide Serum Total Protein Albumin Globulin Albumin/Globulin Ratio TSH Urine Color Yellow Urine Appearance Clear Urine pH 5.0 Ur Specific [place] 1.025 Urine Protein 30 Urine Glucose (UA) 250 H Urine Ketones Trace Urine Blood Negative Urine Nitrite Negative Urine Bilirubin Negative Urine Urobilinogen 0.2 Ur Leukocyte Esterase Negative Urine RBC 0 Urine WBC 0 Ur Epithelial Cells 0 Urine Bacteria 0 He is influenza negative. Departure - Departure Clinical Impression: Orthostasis, Dehydration Disposition: Discharge to SNF Condition: Fair Departure Forms: ED Discharge - Pt. Copy, Patient Portal Self Enrollment Instructions: Orthostatic Hypotension (DC) Diet: diabetic diet Activity: increase activity as tolerated Referrals: Mike Tolliver MD [Primary Care Provider] - 1-2 Weeks Home Medications: Ambulatory Orders Citalopram Hydrobromide [Celexa] 20 mg PO BEDTIME 11/03/18 Clonidine HCl 0.1 mg PO Q8HR PRN 11/03/18 Furosemide Tab [Lasix Tab] 20 mg PO BID 11/03/18 Insulin Glargine [Lantus Solostar] 10 unit SC DAILY 11/03/18 Isosorbide Mononitrate [Isosorbide Mononitrate ER] 60 mg PO DAILY #30 tab 11/03/18 Levetiracetam 500 mg PO BEDTIME 11/03/18 Donepezil Hydrochloride [Donepezil HCl] 10 mg PO DAILY 02/20/19 Epinephrine (Anaphylaxis) [Epinephrine] 0.3 mg IM Q12HR PRN 02/20/19 Memantine HCl 5 mg PO BID 02/20/19 Aspirin [Aspirin Low Strength] 81 mg PO DAILY 02/23/19 Carvedilol [Coreg] 6.25 mg PO BID 02/23/19 Cetirizine HCl 5 mg PO BEDTIME 02/23/19 Insulin Lispro [Humalog Kwikpen] See Protocol SC ACHS 02/23/19 Insulin Lispro [Humalog] 2 unit SUBCU TID 02/23/19 Nitroglycerin 0.4 mg Tab [Nitrostat] 0.4 mg SL Q5MIN PRN 02/23/19 Calcitriol 0.25 mcg PO MOWEFR 03/02/19 Apixaban [Eliquis] 2.5 mg PO DAILY 08/02/19 Benzonatate 100 mg PO Q8HR PRN 08/02/19 Guaifenesin [Guaifenesin ER] 600 mg PO TID 08/02/19 Lidocaine 5% Patch [Lidoderm Patch] 1 ea TOP DAILY 08/02/19 Olmesartan Medoxomil 5 mg PO DAILY 08/02/19 Spironolactone 12.5 mg PO DAILY 08/02/19 Tramadol HCl 50 mg PO Q6HR PRN 08/02/19 Additional Instructions: The patient is an 84-year-old male presented emergency room secondary to generalized weakness progressive over the last 2 days. The patient is significantly dehydrated and markedly hypotensive when he goes to sit or stand. The patient has responded well to a liter and a half of IV fluids. No evidence of fluid overload with this. Blood pressures have corrected. He is now able to ambulate without difficulty. No other significant pathology has been found. We did wait an extra 6 hours in order to obtain a urinalysis. He was finally able to urinate. No evidence of any urinary tract infection. The patient will be released back to his long-term care facility. I do want him followed up with the facility doctor or his primary care doctor within 4 or 5 days. He does need to ambulate carefully to prevent falls. At this point in time I would recommend reducing his Lasix dose to a once daily dose. He may yet have to have other antihypertensive medications reduced if he continues to have orthostatic issues. He did receive a small insulin dose here for hypoglycemia. He has not yet received his evening medications. he will need those upon arrival at the detention.
[2019-08-02 22:03] VITALS: BP 120/77; O2SAT 96
== END 2019-08-02 22:07 ==
LOC: ER 11:06
DX: E86.0 Dehydration (principal); I95.1 Orthostatic hypotension; F03.90 Unspecified dementia, unspecified severity, without behavioral disturbance, psychotic disturbance, mood disturbance, and anxiety; I25.2 Old myocardial infarction; I48.91 Unspecified atrial fibrillation; I50.9 Heart failure, unspecified; I11.0 Hypertensive heart disease with heart failure; E11.9 Type 2 diabetes mellitus without complications; K21.9 Gastro-esophageal reflux disease without esophagitis; Z85.828 Personal history of other malignant neoplasm of skin; Z86.718 Personal history of other venous thrombosis and embolism; Z79.4 Long term (current) use of insulin; Z79.82 Long term (current) use of aspirin; Z79.899 Other long term (current) drug therapy; Z79.01 Long term (current) use of anticoagulants; Z88.5 Allergy status to narcotic agent; Z88.0 Allergy status to penicillin; Z88.6 Allergy status to analgesic agent
CPT/HCPCS: 71045; 80053; 81001; 82550; 82553; 82948; 83605; 83735; 83880; 84443; 84484; 85025; 85610; 85730; 87502; 93005; J1815; J7030

== ENCOUNTER 2019-10-22 03:37 | Inpatient (IN) | payer MEDICARE, BC ==
[2019-10-22] MEDS ORDERED: SODIUM CHLORIDE 0.9% (FLUSH) 10 ML SYG IV PRN ×2 (03:49→08:50)
--- NOTE | 2019-10-22 03:53 | ED.PDOC ---
History of Present Illness - General Chief Complaint: Fever Stated Complaint: fever onset this "evening" Time Seen by Provider: 10/22/19 03:49 Source: patient, EMS - History of Present Illness Initial Comments: 84 yo male bib EMS from [facility] for cc of fevers. Pt reported to have fevers new onset this evening with Tmax 103 F at [facility]. [facility] also reports recent bronchitis sx's. Pt has hx of dementia and is very poor historian. He reports cough and subjective fevers and sore throat on questioning. Denies chest pain, dyspnea, abd pain, n/v, leg swelling. EMS transported here, no meds given. On arrival noted to have temp of 102.8 F. On chart review, pt also seen here 1 month ago for cough and fever. CXR clear and labs reassuring at that time and pt was discharged back to the [facility] on antibio tics. His PCP is Dr. Jean. Allergies/Adverse Reactions: Allergies Dill Oil Allergy (Verified 10/22/19 04:02) Hydrocodone Allergy (Verified 10/22/19 03:59) Penicillins Allergy (Verified 10/22/19 03:59) NSAIDs Adverse Reaction (Verified 07/26/19 12:50) Home Medications: Ambulatory Orders RX: Citalopram Hydrobromide [Celexa] 20 mg PO BEDTIME 11/03/18 RX: Clonidine HCl 0.1 mg PO Q8HR PRN 11/03/18 RX: Insulin Glargine [Lantus Solostar] 10 unit SC DAILY 11/03/18 RX: Isosorbide Mononitrate [Isosorbide Mononitrate ER] 60 mg PO DAILY #30 tab 11/03/18 RX: Donepezil Hydrochloride [Donepezil HCl] 10 mg PO BEDTIME 02/20/19 RX: Epinephrine (Anaphylaxis) [Epinephrine] 0.3 mg IM Q12HR PRN 02/20/19 RX: Memantine HCl 5 mg PO BID 02/20/19 RX: Aspirin [Aspirin Low Strength] 81 mg PO BEDTIME 02/23/19 RX: Carvedilol [Coreg] 6.25 mg PO BID 02/23/19 RX: Cetirizine HCl 5 mg PO BEDTIME 02/23/19 RX: Insulin Lispro [Humalog Kwikpen] See Protocol SC ACHS 02/23/19 RX: Insulin Lispro [Humalog] 2 unit SUBCU TID 02/23/19 RX: Nitroglycerin 0.4 mg Tab [Nitrostat] 0.4 mg SL Q5MIN PRN 02/23/19 RX: Calcitriol 0.25 mcg PO MOTUWETH 03/02/19 Apixaban [Eliquis] 2.5 mg PO BID 08/02/19 Guaifenesin [Guaifenesin ER] 600 mg PO TID 08/02/19 RX: Benzonatate 100 mg PO Q8HR PRN 08/02/19 RX: Spironolactone 12.5 mg PO DAILY 08/02/19 RX: Tramadol HCl 50 mg PO Q6HR PRN 08/02/19 Acetaminophen [Tylenol] 650 mg PO Q6HR PRN 09/17/19 Budesonide (Inhalation) [Pulmicort] 0.5 mg IN Q12HRS 10/22/19 Ipratropium/Albuterol [Duoneb] 3 ml NEB Q4HR PRN 10/22/19 Review of Systems - Review of Systems Review of Systems: 10/22/19 03:53 limited given dementia. As per HPI. 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 Hx Hepatitis C: No Hx MRSA: No - Vaccination History Hx Tetanus, Diphtheria Vaccination: No Hx Influenza Vaccination: Yes Hx Pneumococcal Vaccination: Yes - Social History Hx Tobacco Use: No Hx Chewing Tobacco Use: No Hx Alcohol Use: No Hx Substance Use: No Hx Substance Use Treatment: No Hx Depression: No Hx Physical Abuse: No Hx Emotional Abuse: No Family Medical History - Family History Mother Family History: Unknown Living Status: Physical Exam - Physical Exam General Appearance: Anxious, No apparent distress Eye Exam: bilateral normal Ears, Nose, Throat: normal ENT inspection, normal pharynx Neck: non-tender, full range of motion, supple, normal inspection Respiratory: normal breath sounds, no respiratory distress, no accessory muscle use, crackles - Right middle & lower lobe Cardiovascular/Chest: normal peripheral pulses, no edema, no gallop, no JVD, no murmur, irregularly irregular Peripheral Pulses: radial,right: 2+, radial,left: 2+ Gastrointestinal/Abdominal: non tender, soft, no organomegaly Back Exam: normal inspection, no CVA tenderness, no vertebral tenderness Extremity: normal range of motion, non-tender, normal inspection, no pedal edema, no calf tenderness Neurologic: no motor/sensory deficits, normal mood/affect, other - oriented to person and place but not to year, month, or date Skin Exam: warm/dry, pallor Progress - Progress Progress: 10/22/19 03:55 Fevers -etiology uncertain. Consider sepsis, PNA, UTI, flu, strep, intraabdominal source, gastroenteritis/colitis, ?COVID-19, neoplasm, other -full sepsis work-up, blood cx's drawn. BP stable 160s/80s. A-fib rhythm, HR 90s, SpO2 94% on RA. -place PIV, 1 L NS bolus 10/22/19 05:41 -CXR reveals R middle lobe infiltrate concerning for pneumonia per my read. WBC 13,000 with 90% segs & no bands, lactate 1.6. Strep is also positive, flu negative. BP remains stable, pt remains in a-fib, mostly rate-controlled on tele monitors, occasionally tachycardic. Trop elevated to 0.32 but on review of pt's chart this appears to be his usual baseline. He continues to deny any chest pain. His BNP is elevated to 1500 but clinically he does not appear in ov ert fluid overload. He seems pretty euvolemic to me following 1 L bolus, if not still slightly volume-depleted still. T bili is 1.4 but this has also been elevated slightly in the past and the patient is without any acute abdominal pain or tenderness on exam. Alk phos and LFT's are wnl. -Will repeat 2 hour trop & EKG and consult with hospitalist for admission for pneumonia. Begin Cefepime 2 g IV loading dose for treatment of PNA & Strep pharyngitis. 10/22/19 06:19 -Repeat EKG unchanged, repeat trop unchanged - remains 0.32. Pt still without chest pain. Suspect chronic trop elevation likely from CKD. His creatinine level is 2.08. -Given age, risk factors, +fever, +cough, infiltrate on CXR, sent testing for COVID-19 -Pt meets sepsis criteria without severe features - +leukocytosis, +fever, +source of infection -Discussed with Kevin Kimbrough, hospitalist, who accepts for admission for further treatment of sepsis, pneumonia, strep pharyngitis. -In-hospital DNR code status on file per nursing staff David Robison MD Billing #[id number] 10/22/19 03:49 IV Care:Saline Lock per Protoc QSHIFT Telemetry .ONCE Sodium Chloride 0.9% (Flush) [Saline Flush Syringe] 10 ml IV PRN PRN 10/22/19 04:00 EKG STAT 10/22/19 04:11 BLOOD CULTURE Stat 10/22/19 05:32 SARS-COV2 PCR HIGH RISK Stat 10/22/19 05:45 EKG STAT 10/22/19 05:49 Cefepime [Maxipime] 2 gm Sodium Chl 0.9% 100Ml Mini-Bag [NS 100ml MINI-BAG+] 100 ml IVPB ONCE 10/22/19 09:00 Pulse Ox Daily Laboratory Results - last 24 hr 10/22/19 10/22/19 10/22/19 04:05 04:11 04:11 WBC 13.5 H RBC 4.74 Hgb 14.0 Hct 42.2 MCV 89.1 MCH 29.6 MCHC 33.2 RDW 14.4 Plt Count 203 MPV 9.2 Absolute Neuts (auto) 12.00 H Absolute Lymphs (auto) 0.90 L Absolute Monos (auto) 0.50 Absolute Eos (auto) 0.00 Absolute Basos (auto) 0.00 Neutrophils % 89.2 H Lymphocytes % 6.9 L Monocytes % 3.6 Eosinophils % 0.0 L Basophils % 0.3 Sodium 133 L Potassium 4.1 Chloride 105 Carbon Dioxide 19 L Anion Gap 13.1 BUN 40 H Creatinine 2.08 H BUN/Creatinine Ratio 19.2 Random Glucose 213 H Serum Osmolality 282.5 Lactic Acid Calcium 8.6 Total Bilirubin 1.4 H AST 18 ALT 17 Alkaline Phosphatase 44 Troponin I B-Natriuretic Peptide 1550.0 H* Serum Total Protein 6.9 Albumin 3.1 L Globulin 3.8 H Albumin/Globulin Ratio 0.8 L Group A Strep Rapid Positive 10/22/19 10/22/19 10/22/19 04:11 04:11 05:44 WBC RBC Hgb Hct MCV MCH MCHC RDW Plt Count MPV Absolute Neuts (auto) Absolute Lymphs (auto) Absolute Monos (auto) Absolute Eos (auto) Absolute Basos (auto) Neutrophils % Lymphocytes % Monocytes % Eosinophils % Basophils % Sodium Potassium Chloride Carbon Dioxide Anion Gap BUN Creatinine BUN/Creatinine Ratio Random Glucose Serum Osmolality Lactic Acid 1.6 Calcium Total Bilirubin AST ALT Alkaline Phosphatase Troponin I 0.32 H* 0.32 H* B-Natriuretic Peptide Serum Total Protein Albumin Globulin Albumin/Globulin Ratio Group A Strep Rapid - EKG/XRAY/CT EKG: Atrial, Fibrillation - with occas PVCs, HR 90, no ST elevs, question q wave in aVL, nonspecific T wave in inferior and lateral leads, unchanged from 09/17/2019 EKG. Departure - Departure Clinical Impression: Pneumonia Time of Disposition: 06:15 Disposition: Admit Patient Condition: Fair Departure Forms: ED Discharge - Pt. Copy, Patient Portal Self Enrollment Referrals: Anuj Jean MD [Primary Care Provider] - 1-2 Weeks Home Medications: Ambulatory Orders RX: Citalopram Hydrobromide [Celexa] 20 mg PO BEDTIME 11/03/18 RX: Clonidine HCl 0.1 mg PO Q8HR PRN 11/03/18 RX: Insulin Glargine [Lantus Solostar] 10 unit SC DAILY 11/03/18 RX: Isosorbide Mononitrate [Isosorbide Mononitrate ER] 60 mg PO DAILY #30 tab 11/03/18 RX: Donepezil Hydrochloride [Donepezil HCl] 10 mg PO BEDTIME 02/20/19 RX: Epinephrine (Anaphylaxis) [Epinephrine] 0.3 mg IM Q12HR PRN 02/20/19 RX: Memantine HCl 5 mg PO BID 02/20/19 RX: Aspirin [Aspirin Low Strength] 81 mg PO BEDTIME 02/23/19 RX: Carvedilol [Coreg] 6.25 mg PO BID 02/23/19 RX: Cetirizine HCl 5 mg PO BEDTIME 02/23/19 RX: Insulin Lispro [Humalog Kwikpen] See Protocol SC ACHS 02/23/19 RX: Insulin Lispro [Humalog] 2 unit SUBCU TID 02/23/19 RX: Nitroglycerin 0.4 mg Tab [Nitrostat] 0.4 mg SL Q5MIN PRN 02/23/19 RX: Calcitriol 0.25 mcg PO MOTUWETH 03/02/19 Apixaban [Eliquis] 2.5 mg PO BID 08/02/19 Guaifenesin [Guaifenesin ER] 600 mg PO TID 08/02/19 RX: Benzonatate 100 mg PO Q8HR PRN 08/02/19 RX: Spironolactone 12.5 mg PO DAILY 08/02/19 RX: Tramadol HCl 50 mg PO Q6HR PRN 08/02/19 Acetaminophen [Tylenol] 650 mg PO Q6HR PRN 09/17/19 Budesonide (Inhalation) [Pulmicort] 0.5 mg IN Q12HRS 10/22/19 Ipratropium/Albuterol [Duoneb] 3 ml NEB Q4HR PRN 10/22/19 Decision To Admit - Decistion To Admit Decision to Admit Reason: Admit from ER Decision to Admit Date: 10/22/19 Decision to Admit Time: 06:26
[2019-10-22] MEDS ORDERED: SODIUM CHLORIDE 0.9% 1000ML 1,000 ML IVS ONE (03:57)
--- NOTE | 2019-10-22 04:56 | RAD ---
EXAM: XR Chest, 1 View CLINICAL HISTORY: The patient is 84 years old and is Male; fever, cough TECHNIQUE: Frontal view of the chest. COMPARISON: Chest radiograph September 17, 2019. FINDINGS: LUNGS: Right upper lobe infiltrate is present. Left perihilar infiltrate is also noted. PLEURAL SPACE: Unremarkable. No pneumothorax. HEART: The cardiac silhouette is prominent. MEDIASTINUM: Unremarkable. BONES/JOINTS: There are degenerative changes of the bones. SOFT TISSUES: Surgical clips are present in the soft tissues of the neck. IMPRESSION: Findings suggestive of multilobar pneumonia. Electronically signed by: Joana Hughes MD 10/22/2019 4:55 AM CDT
[2019-10-22] MEDS ORDERED: CEFEPIME 2 GM in SODIUM CHL 0.9% 100ML MINI-BAG 100 ML IVPB ONE (05:49)
[2019-10-22] MEDS ORDERED: CEFEPIME 2 GM VIAL ONE ×3 (05:52→19:28)
[2019-10-22] MEDS ORDERED: SODIUM CHL 0.9% 100ML MINI-BAG 100 ML IVPB ONE (05:52)
[2019-10-22] MEDS ORDERED: ACETAMINOPHEN 325 MG TAB ONE (05:59)
[2019-10-22] MEDS ORDERED: ACETAMINOPHEN 325 MG TAB PO ONE (05:59)
--- NOTE | 2019-10-22 06:40 | HP ---
SUPERVISING PHYSICIAN: GABBY SANCHEZ MD CHIEF COMPLAINT: Fevers. HISTORY OF PRESENT ILLNESS: Mr. Ross is a 84 year-old male patient who resides at [facility]. He was brought in by EMS with a chief complaint of fever. It was noted in the report that he had a fever onset with T-max of 103 at the longterm, also he had been having some bronchitis type symptoms. He does have dementia and is a very poor historian, therefore reports were from previous records and chart review. On arrival to the Emergency Department, it was noted the patient was febrile with a 102.8 temperature. The laboratory studies showed he had a white count of 13,500 with a left shift. Chemistries showed he had a creatinine at 2.08 which was pretty close to his baseline on review of past medical records. It shows his creatinine has been running between 2 and 3. He also had an elevated troponin of 0.32 but review of previous records he has chronic elevated troponin levels, more likely due to his chronic renal failure. BNP was elevated at 1550, BUN was 40. Lactic acid was normal at 1.6. Urinalysis was pending. He had a group A strep that was positive. Influenza A and B by PCR was negative but he did have positive flu early in the month of September. Vital signs are showing he was hemodynamically stable other the temperature of 102.8 with a pulse of 84. Blood pressure was elevated at 160/96, respirations 18, oxygen saturation 94% on room air. Chest x-ray, single-view, per radiology interpretation showed findings suggestive of multilobular pneumonia. He was started on Cefepime, given that he is from the longterm and has respiratory symptoms and is over age 65 he was also tested for COVID-19. He is going to be admitted for continuation of treatment of underlying pneumonia, strep A pharyngitis. He was admitted in stable condition. PAST MEDICAL HISTORY: 1. Chronic renal insufficiency with a baseline creatinine of about 1.82. 2. Skin cancer with multiple removals. 3. Chronic constipation. 4. Diabetes mellitus type 2. 5. Hyperlipidemia. 6. Hypertension. 7. Dementia. 8. History of previous myocardial infarction. PAST SURGICAL HISTORY: 1. Multiple skin cancer removals. CURRENT MEDICATIONS: Please see updated list from the longterm once verified in the computer. ALLERGIES: Hydrocodone, Penicillin, NSAIDS. FAMILY HISTORY: Noncontributory. SOCIAL HISTORY: The patient lives at [facility]. He is . He has no history of smoking, drinking or illicit alcohol use per chart review. REVIEW OF SYSTEMS: Unable to fully obtain due to patient's inability to communicate due to dementia. PHYSICAL EXAMINATION: VITAL SIGNS: Temperature on admission 102.2, pulse 96, blood pressure 170/83, respirations are 18, heart rhythm of 96, oxygen saturation 94 to 97% on room air. GENERAL: The patient does not appear to be in any acute distress. He is awake. HEENT: Tympanic membranes are clear bilaterally. Oropharynx mildly erythremic but no obvious lesions or drainage. Posterior pharynx mildly erythemic. NECK: Supple, non-tender, full range of motion. No jugular venous distention. CHEST: Lung sounds were notable for crackles in the right middle and upper lower lobe. No rales or rhonchi were noted. CARDIOVASCULAR: Irregular rate and rhythm but with controlled ventricular rate with no obvious murmurs, rubs, or gallops. ABDOMEN: Obese, soft, non-tender, positive bowel sounds. BACK: Without any vertebral or CVA tenderness. EXTREMITIES: He moving all extremities ad viviane, no cyanosis, clubbing, or edema. NEUROLOGIC: The patient is oriented to himself. Other than that, he cannot tell you the year, month or date. He does show to be without any motor or sensory deficits. Cranial nerves II through XII appear to be grossly intact. LABORATORY: White count 13,500, hemoglobin 14, hematocrit 42.2, platelet count at 203,000, differential showed a left shift but no bands. Chemistries showed a sodium at 133, creatinine was 2.08 which is close to his baseline levels. BUN 40 with glucose of 213, lactic acid 1.6. Bilirubin only slightly elevated at 1.4, otherwise liver functions within normal limits. He had 2 sets of troponins that were both at 0.32. BNP elevated at 1550. Urinalysis pending and group A strep was positive. MICROBIOLOGY: Influenza A and B by PCR was negative. Blood cultures are pending. RADIOLOGY: Per radiology interpretation showed multilobular pneumonia. ASSESSMENT: 1. Multilobular pneumonia, likely healthcare acquired as the patient resides in a long-term care facility with patient showing a positive group A streptococcal infection with sepsis, with a leukocytosis, positive strep infection and fever. 2. Group A streptococcal pharyngitis. 3. Diabetes mellitus type 2. 4. Hypertension. 5. Advanced dementia. 6. Renal insufficiency with creatinine at 2.0, close to baseline levels with some mild prerenal azotemia. 7. Elevated BNP without any mention of congestive heart failure and with no echocardiogram available at time of admission. 8. Chronic atrial fibrillation with controlled ventricular rate with the patient on Eliquis. 9. Hyperlipidemia. 10. Chronic constipation. 11. Chronic elevated troponin, likely due to ongoing chronic renal failure with no mention of chest pains with no acute changes on EKGs to indicate acute ischemia and acute coronary syndrome. 12. Atrial fibrillation with controlled ventricular rate. PLAN: The patient is going to be admitted for ongoing treatment of multilobular pneumonia, healthcare acquired. We will start him on antibiotics to include Cefepime, vancomycin and Levaquin, all renally dosed as appropriate to his current renal function. He will be on DVT prophylaxis with Eliquis with his history of atrial fibrillation. He will be on telemetry monitoring. He has been tested for COVID-19, that is pending. We will leave him in airborne isolation until that is available. He will be on an 1800 calorie ADA diet. He will be on a PPI for gastric prophylaxis. Will treat his fevers as needed with Tylenol. Will hold off on any fluids at this point and monitor his I&Os closely. In regards to his troponins, they have been stable since admission and he does have a chronically bumped troponin, more likely is a leak due to his chronic renal failure. I anticipate his length of stay to be 2 to 3 days. Until we can transition him to outpatient management, we will continue to monitor and treat as needed. [facility][id number] [facility]
[2019-10-22] MEDS ORDERED: levoFLOXacin 750MG IV 750 MG in PREMIX BAG 1 BAG IVPB ONE (08:48)
[2019-10-22] MEDS ORDERED: ONDANSETRON INJ 4 MG/2 ML VIAL IV PRN (08:50)
[2019-10-22] MEDS ORDERED: ACETAMINOPHEN 325 MG TAB PO PRN (08:50)
[2019-10-22] MEDS ORDERED: GLUCAGON INJ 1 MG VIAL SUBCU PRN (08:56)
[2019-10-22] MEDS ORDERED: DEXTROSE 50% 25 GM/50 ML SYG IV PRN (08:56)
[2019-10-22] MEDS ORDERED: ALBUTEROL INHALER 64 PUFF/8GM INH PRN (08:57)
[2019-10-22] MEDS ORDERED: VANCOMYCIN PER PHARMACY IVPB SCH (09:00)
[2019-10-22] MEDS ORDERED: NYSTATIN POWDER 15GM BTTL TOP ONE (09:23)
[2019-10-22] MEDS: MEMANTINE 10 MG TAB PO SCH ×2 (09:24→19:57)
[2019-10-22] MEDS: ISOSORBIDE MONONITRATE (IMDUR) 30 MG TAB PO SCH (09:25)
[2019-10-22] MEDS: SPIRONOLACTONE 25 MG TAB PO SCH (09:25)
[2019-10-22] MEDS: guaiFENesin ER TAB 600 MG TAB PO SCH ×3 (09:26→19:57)
[2019-10-22] MEDS: APIXABAN 5 MG TAB PO SCH ×2 (09:26→20:00)
[2019-10-22] MEDS: CARVEDILOL 12.5 MG TAB PO SCH ×2 (09:26→19:59)
[2019-10-22] MEDS ORDERED: VANCOMYCIN HCL INJ 750 MG in SODIUM CHLORIDE 0.9% 250ML 250 ML IVPB SCH (10:00)
[2019-10-22] MEDS ORDERED: VANCOMYCIN HCL INJ 1,000 MG VIAL IVPB ONE (10:56)
[2019-10-22] MEDS ORDERED: SODIUM CHLORIDE 0.9% 250ML 250 ML ONE (10:56)
[2019-10-22] MEDS: VANCOMYCIN HCL INJ 750 MG in SODIUM CHLORIDE 0.9% 250ML 250 ML IVPB SCH (11:30)
[2019-10-22] MEDS: IV SET AND CAP CHANGE INJ INJ SCH (11:31)
[2019-10-22] MEDS: NYSTATIN POWDER 15GM BTTL TOP SCH ×3 (11:53→20:01)
[2019-10-22] MEDS ORDERED: CEFEPIME 1 GM in SODIUM CHLORIDE 0.9% 50ML 50 ML IVPB SCH (12:00)
[2019-10-22] MEDS: ALBUTEROL INHALER 64 PUFF/8GM INH SCH ×3 (12:00→20:27)
[2019-10-22] MEDS: INSULIN LISPRO 100 UNITS/ML PEN SUBCU SCH ×3 (12:06→20:03)
[2019-10-22] MEDS ORDERED: SODIUM CHLORIDE 0.9% 50ML 50 ML ONE ×2 (16:50→19:28)
[2019-10-22] MEDS: CEFEPIME 1 GM in SODIUM CHLORIDE 0.9% 50ML 50 ML IVPB SCH (18:14)
[2019-10-22] MEDS ORDERED: PANTOPRAZOLE SODIUM IV 40 MG VIAL ONE (19:29)
[2019-10-22] MEDS: ASPIRIN (CHEWABLE) 81 MG TAB PO SCH (19:57)
[2019-10-22] MEDS: DONEPEZIL HCL 5 MG TAB PO SCH (19:57)
[2019-10-22] MEDS: CETIRIZINE HCL 10 MG TAB PO SCH (19:58)
[2019-10-22] MEDS: CITALOPRAM HBR 20 MG TAB PO SCH (20:00)
[2019-10-23] MEDS: ALBUTEROL INHALER 64 PUFF/8GM INH SCH ×5 (00:15→20:30)
[2019-10-23] MEDS ORDERED: BENZOCAINE-MENTH LOZ (CEPACOL) 1 EA LOZ MT PRN (02:58)
[2019-10-23] MEDS: CEFEPIME 1 GM in SODIUM CHLORIDE 0.9% 50ML 50 ML IVPB SCH ×2 (05:42→18:20)
[2019-10-23] MEDS: PANTOPRAZOLE SODIUM IV 40 MG VIAL IV SCH (05:44)
[2019-10-23] MEDS: INSULIN LISPRO 100 UNITS/ML PEN SUBCU SCH ×4 (06:12→20:25)
--- NOTE | 2019-10-23 07:35 | RAD ---
EXAM DESCRIPTION: Chest,1 View CLINICAL HISTORY: Pneumonia FINDINGS/ IMPRESSION: Comparison 10/22/2019. Interval increase in the alveolar infiltrate right upper lobe with air bronchograms. Compatible with pneumonia Lung volumes are slightly decreased right greater than left mostly in the perihilar regions/lung bases Heart size is normal. No pleural effusions. No pneumothorax Electronically signed by: Eriberto Negrete MD 10/23/2019 7:33 AM CDT
[2019-10-23] MEDS ORDERED: SODIUM CHLORIDE 0.45% 1000ML 1,000 ML IVS ONE (09:10)
[2019-10-23] MEDS ORDERED: levoFLOXacin 500MG IV 500 MG in PREMIX BAG 1 BAG IVPB SCH (10:00)
[2019-10-23] MEDS ORDERED: methylPREDNISolone SODIUM SUC 125 MG/2 ML VIAL IV ONE (10:22)
--- NOTE | 2019-10-23 10:46 | PN ---
SUPERVISING PHYSICIAN: Onofre Gutierrez MD DATE: 10/23/19 SUBJECTIVE: The patient is sitting in bed. He is slightly confused. He does answer some simple questions appropriately. He complains of coughing as well as some shortness of breath with exertion. He denies nausea, vomiting or chest pain OBJECTIVE: VITAL SIGNS: Temperature 98.5, heart rate 82, blood pressure 126/68, respiratory rate 20, O2 saturation 98% on 2 liters nasal cannula. RESPIRATORY: Diminished breath sounds on the right side with some mild expiratory wheezing in the apices as well as some scattered rhonchi, much worse on the right than on the left. CARDIAC: Regular rate and rhythm. GASTROINTESTINAL: Abdomen is soft, nondistended, nontender. Bowel sounds are positive. NEUROLOGIC: Awake and alert. He does get confused at times. He does answer simple questions appropriately. LABORATORY: WBCs 9.3, hemoglobin 13.2, hematocrit 39.3. He has a left shift on his differential. Sodium 132, potassium 4.4, chloride 108, BUN 15, creatinine has gone up slightly to 2.25. Blood sugars have run between 115 and 190. Preliminary blood cultures show no growth after 24 hours. Chest x-ray shows interval increase in the alveolar infiltrate, right upper lobe, with air bronchograms compatible with pneumonia. Lung volumes are slightly decreased, right greater than left, mostly in the perihilar region/lung bases. Heart it is normal. No pleural effusions. No pneumothorax. All other labs and films have been reviewed via the EMR. ASSESSMENT: 1. Multilobular pneumonia, likely healthcare acquired as the patient resides in a long-term care facility with patient showing a positive group A streptococcal infection with sepsis, with a leukocytosis, positive strep infection and fever. 2. Group A streptococcal pharyngitis. 3. Diabetes mellitus, type 2. 4. Hypertension. 5. Advanced dementia. 6. Renal insufficiency with creatinine at 2.0, close to baseline levels with some mild prerenal azotemia. 7. Elevated BNP without any mention of congestive heart failure and with no echocardiogram available at time of admission. 8. Chronic atrial fibrillation with controlled ventricular rate with the patient on Eliquis. 9. Hyperlipidemia. 10. Chronic constipation. 11. Chronic elevated troponin, likely due to ongoing chronic renal failure with no mention of chest pains with no acute changes on EKGs to indicate acute ischemia and acute coronary syndrome. 12. Atrial fibrillation with controlled ventricular rate. 13. High risk for COVID-19, pending results. PLAN: We will continue present supportive care. I have changed his Levaquin to every 48 hours based on pharmacist's recommendation. I have ordered lab for in the morning. I have also given him a liter of fluids hopefully to improve his renal function. I am going to give him a small, one-time dose of Solu-Medrol. We will continue to monitor his cultures. He will have aggressive pulmonary hygiene. We will continue to monitor the patient closely and follow as needed. [facility][id number] [facility]
[2019-10-23] MEDS: levoFLOXacin 750MG IV 750 MG in PREMIX BAG 1 BAG IVPB SCH (10:55)
[2019-10-23] MEDS: MEMANTINE 10 MG TAB PO SCH ×2 (10:55→20:17)
[2019-10-23] MEDS: SPIRONOLACTONE 25 MG TAB PO SCH (10:56)
[2019-10-23] MEDS: guaiFENesin ER TAB 600 MG TAB PO SCH ×3 (10:57→20:17)
[2019-10-23] MEDS: ISOSORBIDE MONONITRATE (IMDUR) 30 MG TAB PO SCH (10:57)
[2019-10-23] MEDS: NYSTATIN POWDER 15GM BTTL TOP SCH ×4 (10:58→20:18)
[2019-10-23] MEDS: CARVEDILOL 12.5 MG TAB PO SCH ×2 (10:59→20:17)
[2019-10-23] MEDS: APIXABAN 5 MG TAB PO SCH ×2 (10:59→20:17)
[2019-10-23] MEDS: CALCITRIOL 0.25 MCG CAP PO SCH (11:03)
[2019-10-23] MEDS ORDERED: VANCOMYCIN HCL INJ 1,000 MG VIAL IVPB ONE (12:26)
[2019-10-23] MEDS ORDERED: SODIUM CHLORIDE 0.9% 250ML 250 ML ONE (12:26)
[2019-10-23] MEDS: VANCOMYCIN HCL INJ 750 MG in SODIUM CHLORIDE 0.9% 250ML 250 ML IVPB SCH (12:34)
[2019-10-23] MEDS ORDERED: SODIUM CHLORIDE 0.9% 50ML 50 ML ONE ×2 (15:41→19:47)
[2019-10-23] MEDS ORDERED: CEFEPIME 2 GM VIAL ONE ×2 (15:41→19:46)
[2019-10-23] MEDS: CITALOPRAM HBR 20 MG TAB PO SCH (20:17)
[2019-10-23] MEDS: ASPIRIN (CHEWABLE) 81 MG TAB PO SCH (20:17)
[2019-10-23] MEDS: DONEPEZIL HCL 5 MG TAB PO SCH (20:17)
[2019-10-23] MEDS: CETIRIZINE HCL 10 MG TAB PO SCH (20:19)
[2019-10-24] MEDS: ALBUTEROL INHALER 64 PUFF/8GM INH SCH ×4 (04:00→12:43)
[2019-10-24] MEDS: CEFEPIME 1 GM in SODIUM CHLORIDE 0.9% 50ML 50 ML IVPB SCH ×2 (05:31→18:29)
[2019-10-24] MEDS: PANTOPRAZOLE SODIUM IV 40 MG VIAL IV SCH (05:32)
[2019-10-24] MEDS ORDERED: INSULIN LISPRO 100 UNITS/ML PEN SUBCU ONE (07:01)
[2019-10-24] MEDS: INSULIN LISPRO 100 UNITS/ML PEN SUBCU SCH ×6 (07:04→21:11)
[2019-10-24] MEDS ORDERED: CEFEPIME 2 GM VIAL ONE ×3 (09:59→21:02)
[2019-10-24] MEDS ORDERED: SODIUM CHLORIDE 0.9% 250ML 250 ML ONE (09:59)
[2019-10-24] MEDS ORDERED: VANCOMYCIN HCL INJ 1,000 MG VIAL IVPB ONE (10:00)
[2019-10-24] MEDS ORDERED: SODIUM CHLORIDE 0.9% 50ML 50 ML ONE ×2 (10:00→20:56)
[2019-10-24] MEDS: INSULIN DETEMIR 100 UNITS/ML PEN SUBCU SCH (10:01)
[2019-10-24] MEDS: MEMANTINE 10 MG TAB PO SCH ×2 (10:02→21:28)
[2019-10-24] MEDS: SPIRONOLACTONE 25 MG TAB PO SCH (10:03)
[2019-10-24] MEDS: APIXABAN 5 MG TAB PO SCH ×2 (10:04→21:28)
[2019-10-24] MEDS: CALCITRIOL 0.25 MCG CAP PO SCH (10:05)
[2019-10-24] MEDS: CARVEDILOL 12.5 MG TAB PO SCH ×2 (10:05→21:27)
[2019-10-24] MEDS: guaiFENesin ER TAB 600 MG TAB PO SCH ×3 (10:05→21:28)
[2019-10-24] MEDS: ISOSORBIDE MONONITRATE (IMDUR) 30 MG TAB PO SCH (10:06)
[2019-10-24] MEDS: NYSTATIN POWDER 15GM BTTL TOP SCH ×4 (10:07→21:28)
--- NOTE | 2019-10-24 10:30 | PN ---
SUPERVISING PHYSICIAN: Onofre Gutierrez MD DATE: 10/24/19 SUBJECTIVE: The patient is sitting up on the side of his bed. He is confused as to time and place. He also is confused about his age, but he does answer some simple yes/no questions appropriately. He denies any shortness of breath, nausea, vomiting or chest pain. OBJECTIVE: VITAL SIGNS: Temperature 98, heart rate 75, blood pressure 131/88, respiratory rate 16, O2 saturation 98% on room air. RESPIRATORY: Somewhat diminished on the right upper lobe, but improved since yesterday. The left side is clear. CARDIAC: Regular rate and rhythm. GASTROINTESTINAL: Abdomen is soft, nondistended, nontender. Bowel sounds are positive. NEUROLOGIC: Awake and alert. He is oriented to person only. LABORATORY: WBCs 6,400, hemoglobin 13, hematocrit 38.9. He has a left shift on his differential. Blood sugar this morning was 434. His blood sugars have run between 142 and 434. Sodium 129, potassium 4.6, chloride 105, BUN 59, creatinine 2.11. Calcium 8, magnesium 1.8. MICROBIOLOGY: Preliminary blood cultures show no growth after 48 hours. All other labs and films have been reviewed via the EMR. ASSESSMENT: 1. Multilobular pneumonia, likely healthcare acquired as the patient resides in a long-term care facility with patient showing a positive group A streptococcal infection with sepsis, with a leukocytosis, positive strep infection and fever. 2. Group A streptococcal pharyngitis. 3. Diabetes mellitus, type 2. 4. Hypertension. 5. Advanced dementia. 6. Renal insufficiency with creatinine at 2.0, close to baseline levels with some mild prerenal azotemia. 7. Elevated BNP without any mention of congestive heart failure and with no echocardiogram available at time of admission. 8. Chronic atrial fibrillation with controlled ventricular rate with the patient on Eliquis. 9. Hyperlipidemia. 10. Chronic constipation. 11. Chronic elevated troponin, likely due to ongoing chronic renal failure with no mention of chest pains with no acute changes on EKGs to indicate acute ischemia and acute coronary syndrome. 12. Atrial fibrillation with controlled ventricular rate. 13. High risk for COVID-19. His results were negative. PLAN: We will continue present supportive care. I have re-started his Lantus insulin and added 2 units to his a.c. and h.s. sliding scale insulin. I will check his labs and chest x-ray in the morning. I encouraged good pulmonary hygiene. Hopefully, he can be discharged tomorrow. We will continue to monitor the patient closely and follow as needed. [facility][id number] [facility]
[2019-10-24] MEDS: VANCOMYCIN HCL INJ 750 MG in SODIUM CHLORIDE 0.9% 250ML 250 ML IVPB SCH (11:47)
[2019-10-24] MEDS: ALBUTEROL SULFATE 2.5 MG/3 ML VIAL NEB SCH ×3 (12:50→20:11)
[2019-10-24] MEDS ORDERED: diphenhydrAMINE HCL 25 MG CAP PO PRN (12:52)
[2019-10-24] MEDS: DONEPEZIL HCL 5 MG TAB PO SCH (21:27)
[2019-10-24] MEDS: ASPIRIN (CHEWABLE) 81 MG TAB PO SCH (21:27)
[2019-10-24] MEDS: CITALOPRAM HBR 20 MG TAB PO SCH (21:27)
[2019-10-24] MEDS: CETIRIZINE HCL 10 MG TAB PO SCH (21:28)
[2019-10-25] MEDS ORDERED: CARBOXYMETHYLCELLULOSE 0.5% OPHTH SOL 0.4 ML UD BOTH_EYES PRN (04:50)
[2019-10-25] MEDS: CEFEPIME 1 GM in SODIUM CHLORIDE 0.9% 50ML 50 ML IVPB SCH (06:02)
[2019-10-25] MEDS: PANTOPRAZOLE SODIUM IV 40 MG VIAL IV SCH (06:03)
--- NOTE | 2019-10-25 06:56 | RAD ---
EXAM: XR Chest, 1 View CLINICAL HISTORY: pna TECHNIQUE: Frontal view of the chest. COMPARISON: 10/23/2019. FINDINGS: Lungs: There is slight improvement in right upper lobe pneumonia. Pleural space: Unremarkable. No pneumothorax. Heart: Stable cardiac shadow. Mediastinum: Unremarkable. Bones/joints: Unremarkable. IMPRESSION: There is slight improvement in right upper lobe pneumonia. Electronically signed by: Liss Wallace MD 10/25/2019 6:54 AM CDT
[2019-10-25] MEDS: INSULIN LISPRO 100 UNITS/ML PEN SUBCU SCH ×2 (07:59→08:00)
[2019-10-25] MEDS: ALBUTEROL SULFATE 2.5 MG/3 ML VIAL NEB SCH (08:47)
[2019-10-25] MEDS: levoFLOXacin 750MG IV 750 MG in PREMIX BAG 1 BAG IVPB SCH (09:17)
[2019-10-25] MEDS: MEMANTINE 10 MG TAB PO SCH (09:18)
[2019-10-25] MEDS: SPIRONOLACTONE 25 MG TAB PO SCH (09:18)
[2019-10-25] MEDS: CARVEDILOL 12.5 MG TAB PO SCH (09:19)
[2019-10-25] MEDS: guaiFENesin ER TAB 600 MG TAB PO SCH (09:19)
[2019-10-25] MEDS: ISOSORBIDE MONONITRATE (IMDUR) 30 MG TAB PO SCH (09:19)
[2019-10-25] MEDS: CALCITRIOL 0.25 MCG CAP PO SCH (09:19)
[2019-10-25] MEDS: APIXABAN 5 MG TAB PO SCH (09:20)
[2019-10-25] MEDS: NYSTATIN POWDER 15GM BTTL TOP SCH (09:20)
[2019-10-25] MEDS: IV SET AND CAP CHANGE INJ INJ SCH (09:20)
[2019-10-25] MEDS: INSULIN DETEMIR 100 UNITS/ML PEN SUBCU SCH (09:20)
[2019-10-25 09:48] VITALS: O2SAT 99
[2019-10-25 13:10] VITALS: BP 142/70; TEMP 97.9
--- NOTE | 2019-11-02 08:26 | DS ---
SUPERVISING PHYSICIAN: Onofre Gutierrez MD DISCHARGE DIAGNOSIS: 1. Multilobular pneumonia, likely healthcare acquired as the patient resides in a long-term care facility with patient showing a positive group A streptococcal infection with sepsis, with a leukocytosis, positive strep infection and fever. 2. Group A streptococcal pharyngitis. 3. Diabetes mellitus, type 2. 4. Hypertension. 5. Advanced dementia. 6. Renal insufficiency with creatinine at 2.0, close to baseline levels with some mild prerenal azotemia. 7. Elevated BNP without any mention of congestive heart failure and with no echocardiogram available at time of admission. 8. Chronic atrial fibrillation with controlled ventricular rate with the patient on Eliquis. 9. Hyperlipidemia. 10. Chronic constipation. 11. Chronic elevated troponin, likely due to ongoing chronic renal failure with no mention of chest pains with no acute changes on EKGs to indicate acute ischemia and acute coronary syndrome. 12. Atrial fibrillation with controlled ventricular rate. 13. High risk for COVID-19. His results were negative. HISTORY OF PRESENT ILLNESS: Mr. Ross is a 84 year-old male patient who resides at [facility]. He was brought in by EMS with a chief complaint of fever. It was noted in the report that he had a fever onset with T-max of 103 at the [facility], also he had been having some bronchitis type symptoms. He does have dementia and is a very poor historian, therefore reports were from previous records and chart review. On arrival to the Emergency Department, it was noted the patient was febrile with a 102.8 temperature. The laboratory studies showed he had a white count of 13,500 with a left shift. Chemistries showed he had a creatinine at 2.08 which was pretty close to his baseline on review of past medical records. It shows his creatinine has been running between 2 and 3. He also had an elevated troponin of 0.32 but review of previous records he has chronic elevated troponin levels, more likely due to his chronic renal failure. BNP was elevated at 1550, BUN was 40. Lactic acid was normal at 1.6. Urinalysis was pending. He had a group A strep that was positive. Influenza A and B by PCR was negative but he did have positive flu early in the month of September. Vital signs are showing he was hemodynamically stable other the temperature of 102.8 with a pulse of 84. Blood pressure was elevated at 160/96, respirations 18, oxygen saturation 94% on room air. Chest x-ray, single-view, per radiology interpretation showed findings suggestive of multilobular pneumonia. He was started on Cefepime, given that he is from the [facility] and has respiratory symptoms and is over age 65 he was also tested for COVID-19. He is going to be admitted for continuation of treatment of underlying pneumonia, strep A pharyngitis. He was admitted in stable condition. HOSPITAL COURSE: The patient was admitted for treatment of multilobar pneumonia, healthcare acquired. He was on cefepime, vancomycin and Levaquin. They were all renally dosed due to his renal function. He was on DVT prophylaxis with Eliquis due to his history of atrial fibrillation. He was also on telemetry and tested for COVID-19. He was in airborne isolation until his COVID-19 results came back and were negative. He was on the proton pump inhibitor for gastric prophylaxis. At times, he was confused, but he did answer simple questions appropriately. He did have a one-time dose of Solu-Medrol and aggressive pulmonary hygiene. After his COVID-19 results were negative, he was moved to another room out of isolation. Again, he had some bouts of confusion, but I believe that is his baseline. He will be discharged to [facility] today in stable condition. LABORATORY: WBCs were fairly stable other than on admission, but they did bump up today most likely due to his steroid dose. His hemoglobin and hematocrit are stable at 13.6 and 41. His blood sugars have run between 147 and 396. He did have to have some additional insulin coverage and was on sliding scale insulin protocol. His sodium was slightly low at 133 with BUN 57, creatinine 1.87 which is at his baseline. His troponin is chronically elevated, most likely due to renal function. His blood cultures continue to be pending. His COVID-19 was negative. His influenza A and B per PCR were both negative. His final chest x- ray showed improvement in the right upper lobe pneumonia. DISCHARGE PLAN: The patient will be discharged to [facility] in stable condition. He is to resume his previous diet and increase his activity as tolerated. He is to followup with Dr. Jean, his primary care physician, on 1 to 2 weeks. In addition to his routine medications, he is to be on doxycycline and Levaquin. He is to return to the hospital or followup with Dr. Jean for any problems or complications. DISCHARGE MEDICATIONS: 1. Lantus insulin. 2. Clonidine. 3. Citalopram. 4. Isosorbide mononitrate. 5. Memantine. 6. Epinephrine. 7. Donepezil. 8. Cetirizine. 9. Nitroglycerin. 10. Humalog insulin. 11. Coreg. 12. Aspirin. 13. Calcitrol. 14. Tramadol. 15. Guaifenesin. 16. Benzonatate. 17. Eliquis. 18. Spironolactone. 19. Acetaminophen. 20. Budesonide inhalation. 21. DuoNeb. 22. Olmesartan. 23. Doxycycline. 24. Levaquin. [facility][id number] [facility]
== END 2019-10-25 13:30 | DRG 871 ==
LOC: ER 03:37 → MS 06:39 → OBSVTOIN 06:39 → MS 10-24 10:18
PROVIDERS: ADMIT Nurse Practitioner Family; ATTEND Nurse Practitioner Acute Care
DX: A40.0 Sepsis due to streptococcus, group A (principal); J18.9 Pneumonia, unspecified organism; I48.20 Chronic atrial fibrillation, unspecified; Z66 Do not resuscitate; E11.22 Type 2 diabetes mellitus with diabetic chronic kidney disease; I12.9 Hypertensive chronic kidney disease with stage 1 through stage 4 chronic kidney disease, or unspecified chronic kidney disease; N18.9 Chronic kidney disease, unspecified; F03.90 Unspecified dementia, unspecified severity, without behavioral disturbance, psychotic disturbance, mood disturbance, and anxiety; R79.89 Other specified abnormal findings of blood chemistry; E78.5 Hyperlipidemia, unspecified; K59.09 Other constipation; I25.2 Old myocardial infarction; E66.9 Obesity, unspecified; Y95 Nosocomial condition; Z88.0 Allergy status to penicillin; Z88.5 Allergy status to narcotic agent; Z88.6 Allergy status to analgesic agent; Z79.02 Long term (current) use of antithrombotics/antiplatelets; Z79.82 Long term (current) use of aspirin; Z79.4 Long term (current) use of insulin; Z79.899 Other long term (current) drug therapy; Z86.718 Personal history of other venous thrombosis and embolism; Z68.23 Body mass index [BMI] 23.0-23.9, adult

== ENCOUNTER 2019-12-31 12:30 | Inpatient (IN) | payer MEDICARE, BC ==
[2019-12-31] MEDS ORDERED: SODIUM CHLORIDE 0.9% (FLUSH) 10 ML SYG IV PRN ×2 (12:43→18:53)
--- NOTE | 2019-12-31 12:44 | ED.PDOC ---
History of Present Illness - General Time Seen by Provider: 12/31/19 12:43 Source: patient, EMS, shelter records - History of Present Illness Initial Comments: 84-year-old male with PMH of hypertension, diabetes, dementia who is brought in from [facility] via EMS for chief complaint of altered mental status. Patient reportedly has had a cough for several days and was tested for COVID several days ago, results unknown at this time. Today he was noted to seem altered more than usual from his baseline and had an increased requirement of his usual nasal cannula O2 so he was sent to the ED for evaluation. Here the patient is awake and alert and able to answer some simple questions. However given his dementia and altered mental status very little meaningful history is able to be obtained. He is without any major complaints. Denies chest pain, dyspnea, sore throat, abdominal pain, nausea. On chart review patient was seen here 2 months ago and diagnosed with right lower lobe pneumonia at that time and was admitted for 10 days prior to discharge back to the shelter. Allergies/Adverse Reactions: Allergies Dill Oil Allergy (Verified 10/22/19 04:02) Hydrocodone Allergy (Verified 10/22/19 03:59) Penicillins Allergy (Verified 10/22/19 03:59) NSAIDs Adverse Reaction (Verified 07/26/19 12:50) Home Medications: Ambulatory Orders Citalopram Hydrobromide [Celexa] 20 mg PO BEDTIME 11/03/18 Clonidine HCl 0.1 mg PO Q8HR PRN 11/03/18 Insulin Glargine [Lantus Solostar] 10 unit SC DAILY 11/03/18 Isosorbide Mononitrate [Isosorbide Mononitrate ER] 60 mg PO DAILY #30 tab 11/03/18 Donepezil Hydrochloride [Donepezil HCl] 10 mg PO BEDTIME 02/20/19 Epinephrine (Anaphylaxis) [Epinephrine] 0.3 mg IM Q12HR PRN 02/20/19 Memantine HCl 5 mg PO BID 02/20/19 Aspirin [Aspirin Low Strength] 81 mg PO BEDTIME 02/23/19 Carvedilol [Coreg] 6.25 mg PO BID 02/23/19 Cetirizine HCl 5 mg PO BEDTIME 02/23/19 Insulin Lispro [Humalog Kwikpen] See Protocol SC ACHS 02/23/19 Insulin Lispro [Humalog] 2 unit SUBCU TID 02/23/19 Nitroglycerin 0.4 mg Tab [Nitrostat] 0.4 mg SL Q5MIN PRN 02/23/19 Calcitriol 0.25 mcg PO MOTUWETH 03/02/19 Apixaban [Eliquis] 2.5 mg PO BID 08/02/19 Benzonatate 100 mg PO Q8HR PRN 08/02/19 Guaifenesin [Guaifenesin ER] 600 mg PO TID 08/02/19 Spironolactone 12.5 mg PO DAILY 08/02/19 Tramadol HCl 50 mg PO Q6HR PRN 08/02/19 Acetaminophen [Tylenol] 650 mg PO Q6HR PRN 09/17/19 Budesonide (Inhalation) [Pulmicort] 0.5 mg IN Q12HRS 10/22/19 Ipratropium/Albuterol [Duoneb] 3 ml NEB Q4HR PRN 10/22/19 Olmesartan Medoxomil 5 mg PO DAILY 10/22/19 Doxycycline Hyclate 100 mg PO BID #10 cap 10/25/19 Levofloxacin [Levaquin] 250 mg PO DAILY #5 tablet 10/25/19 Review of Systems - Review of Systems Review of Systems: 12/31/19 13:05 As per HPI All other Systems: Reviewed and Negative Past Medical History (General) - Patient Medical History Hx Seizures: No Hx Stroke: No Hx Dementia: Yes Hx Asthma: No Hx of COPD: No Hx Cardiac Disorders: Yes - Hx NC; Hx DVT, AFIB Hx Congestive Heart Failure: Yes Hx Pacemaker: No Hx Hypertension: Yes Hx Thyroid Disease: No Hx Diabetes: Yes Hx Gastroesophageal Reflux: Yes Hx Renal Disease: No 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 Hx of HIV: No Hx Hepatitis C: No Hx MRSA: No - Vaccination History Hx Tetanus, Diphtheria Vaccination: No Hx Influenza Vaccination: Yes Hx Pneumococcal Vaccination: Yes - Social History Hx Tobacco Use: No Hx Chewing Tobacco Use: No Hx Alcohol Use: No Hx Substance Use: No Hx Substance Use Treatment: No Hx Depression: No Hx Physical Abuse: No Hx Emotional Abuse: No Family Medical History - Family History Mother Family History: Unknown Living Status: Physical Exam - Physical Exam General Appearance: Alert, Comfortable, No apparent distress Eye Exam: bilateral normal Ears, Nose, Throat: hearing grossly normal, normal ENT inspection, normal pharynx Neck: non-tender, full range of motion, supple, normal inspection Respiratory: other - Wet sounding frequent cough noted on exam. Faint wet crackles noted bibasilar lung medellin. No wheezes. Breathing comfortably, no respiratory distress or accessory muscle use. Cardiovascular/Chest: normal peripheral pulses, no edema, no gallop, no JVD, no murmur, irregularly irregular Peripheral Pulses: radial,right: 2+, radial,left: 2+ Gastrointestinal/Abdominal: non tender, soft, no organomegaly Back Exam: normal inspection, no CVA tenderness, no vertebral tenderness Extremity: normal range of motion, non-tender, normal inspection, no pedal edema, no calf tenderness, normal capillary refill Neurologic: cut in station operator II-XII nml as tested, no motor/sensory deficits, alert, normal mood/affect, other - Oriented to year and location and person but not month or date. Generalized weakness but 5/5 strength throughout. Skin Exam: normal color, warm/dry Progress - Progress Progress: 12/31/19 13:07 Altered mental status -Also with cough, generalized weakness -Consider pneumonia, UTI, dehydration, COVID-19, strep, CHF, metabolic derangement, ACS, arrhythmia, other -Obtain blood work, UA, cardiac work-up, COVID-19 swab, strep 12/31/19 16:15 -Patient remains stable, SPO2 now 96% on room air. He is positive for COVID-19. Labs revealed WBC 6300 with left shift but no bands, lactate 2.6. Repeat lactate was 2.5 after 1 L NS bolus so another 1 L bolus was given in the ED. His chronic lab findings of CKD and slightly elevated troponin levels are unchanged from prior. His chest x-ray reveals bilateral opacifications concerning for pneumonia per my read. -Blood cultures were collected and the patient was begun on Rocephin 1 g IV for pneumonia. -I spoke with Kevin Kimbrough, who accepts the patient for admission for further care. David Robison MD Billing #[id number] 12/31/19 12:43 IV Care:Saline Lock per Protoc QSHIFT Telemetry .ONCE Sodium Chloride 0.9% (Flush) [Saline Flush Syringe] 10 ml IV PRN PRN URINALYSIS Stat 12/31/19 12:45 EKG STAT 12/31/19 12:58 C-REACTIVE PROTEIN Stat LD-L/LDH Stat D-DIMER,QUANTITATIVE Stat FIBRINOGEN Stat 12/31/19 14:20 BLOOD CULTURE Stat 01/01/20 09:00 Pulse Ox Daily Laboratory Results - last 24 hr 12/31/19 12/31/19 12/31/19 12:58 12:58 12:58 WBC 6.3 RBC 5.93 Hgb 16.7 Hct 51.6 MCV 86.9 MCH 28.2 MCHC 32.4 L RDW 16.5 H Plt Count 199 MPV 9.4 Absolute Neuts (auto) 5.40 Absolute Lymphs (auto) 0.50 L Absolute Monos (auto) 0.40 Absolute Eos (auto) 0.00 Absolute Basos (auto) 0.00 Neutrophils % 86.1 H Lymphocytes % 8.1 L Monocytes % 5.6 Eosinophils % 0.0 L Basophils % 0.2 Sodium 136 Potassium 4.4 Chloride 107 Carbon Dioxide 19 L Anion Gap 14.4 BUN 47 H Creatinine 1.76 H BUN/Creatinine Ratio 26.7 H Random Glucose 241 H Serum Osmolality 292.1 Lactic Acid Calcium 8.6 Total Bilirubin 1.5 H AST 23 ALT 28 Alkaline Phosphatase 52 Troponin I 0.34 H* B-Natriuretic Peptide 2040.0 H* Serum Total Protein 6.7 Albumin 3.0 L Globulin 3.7 H Albumin/Globulin Ratio 0.8 L Group A Strep Rapid 12/31/19 12/31/19 12/31/19 12:58 13:53 14:47 WBC RBC Hgb Hct MCV MCH MCHC RDW Plt Count MPV Absolute Neuts (auto) Absolute Lymphs (auto) Absolute Monos (auto) Absolute Eos (auto) Absolute Basos (auto) Neutrophils % Lymphocytes % Monocytes % Eosinophils % Basophils % Sodium Potassium Chloride Carbon Dioxide Anion Gap BUN Creatinine BUN/Creatinine Ratio Random Glucose Serum Osmolality Lactic Acid 2.6 H* 2.5 H* Calcium Total Bilirubin AST ALT Alkaline Phosphatase Troponin I B-Natriuretic Peptide Serum Total Protein Albumin Globulin Albumin/Globulin Ratio Group A Strep Rapid Positive - EKG/XRAY/CT EKG: Atrial, Fibrillation - With occasional PVCs, heart rate 80, no ST elevations or Q waves noted, nonspecific ST segment changes noted in inferior and lateral leads, axis normal, intervals normal, appears largely unchanged from 10/22/2019 EKG Departure - Departure Clinical Impression: COVID-19, Pneumonia due to 2019 novel coronavirus, Hypoxia Time of Disposition: 16:19 Disposition: Admit Patient Condition: Poor Referrals: Anuj Jean MD [Primary Care Provider] - 1-2 Weeks Home Medications: Ambulatory Orders Citalopram Hydrobromide [Celexa] 20 mg PO BEDTIME 11/03/18 Clonidine HCl 0.1 mg PO Q8HR PRN 11/03/18 Insulin Glargine [Lantus Solostar] 10 unit SC DAILY 11/03/18 Isosorbide Mononitrate [Isosorbide Mononitrate ER] 60 mg PO DAILY #30 tab 11/03/18 Donepezil Hydrochloride [Donepezil HCl] 10 mg PO BEDTIME 02/20/19 Epinephrine (Anaphylaxis) [Epinephrine] 0.3 mg IM Q12HR PRN 02/20/19 Memantine HCl 5 mg PO BID 02/20/19 Aspirin [Aspirin Low Strength] 81 mg PO BEDTIME 02/23/19 Carvedilol [Coreg] 6.25 mg PO BID 02/23/19 Cetirizine HCl 5 mg PO BEDTIME 02/23/19 Insulin Lispro [Humalog Kwikpen] See Protocol SC ACHS 02/23/19 Insulin Lispro [Humalog] 2 unit SUBCU TID 02/23/19 Nitroglycerin 0.4 mg Tab [Nitrostat] 0.4 mg SL Q5MIN PRN 02/23/19 Calcitriol 0.25 mcg PO MOTUWETH 03/02/19 Apixaban [Eliquis] 2.5 mg PO BID 08/02/19 Benzonatate 100 mg PO Q8HR PRN 08/02/19 Guaifenesin [Guaifenesin ER] 600 mg PO TID 08/02/19 Spironolactone 12.5 mg PO DAILY 08/02/19 Tramadol HCl 50 mg PO Q6HR PRN 08/02/19 Acetaminophen [Tylenol] 650 mg PO Q6HR PRN 09/17/19 Budesonide (Inhalation) [Pulmicort] 0.5 mg IN Q12HRS 10/22/19 Ipratropium/Albuterol [Duoneb] 3 ml NEB Q4HR PRN 10/22/19 Olmesartan Medoxomil 5 mg PO DAILY 10/22/19 Doxycycline Hyclate 100 mg PO BID #10 cap 10/25/19 Levofloxacin [Levaquin] 250 mg PO DAILY #5 tablet 10/25/19 Decision To Admit - Decistion To Admit Decision to Admit Reason: Admit from ER Decision to Admit Date: 12/31/19 Decision to Admit Time: 16:19
--- NOTE | 2019-12-31 13:18 | RAD ---
EXAM: Chest,1 View CLINICAL INDICATION: Weakness, altered mental status COMPARISON: 10/25/2019 FINDINGS: A single view of the chest was obtained. The heart size is normal. The pulmonary vascularity is unremarkable. There are infiltrates in the left upper lobe and bilateral lower lobes consistent with pneumonia. The lungs are otherwise clear. IMPRESSION: Bilateral pulmonary infiltrates, consistent with pneumonia. Electronically signed by: Waldemar Gunter MD 12/31/2019 1:17 PM CDT
[2019-12-31] MEDS ORDERED: SODIUM CHLORIDE 0.9% 1000ML 1,000 ML ONE (13:33)
[2019-12-31] MEDS ORDERED: SODIUM CHLORIDE 0.9% 1000ML 1,000 ML IVS ONE ×2 (13:33→15:07)
[2019-12-31] MEDS ORDERED: cefTRIAXone SODIUM 1 GM in SODIUM CHL 0.9% 50ML MIN-BAG+ 50 ML IVPB ONE (13:57)
--- NOTE | 2019-12-31 18:03 | HP ---
SUPERVISING PHYSICIAN: Mike Tolliver MD CHIEF COMPLAINT: Altered mental status. HISTORY OF PRESENT ILLNESS: Mr. Ross is a 84 year-old male patient who resides at [facility]. Her has a past medical history of hypertension, diabetes, dementia. He was brought in by EMS with a chief complaint of altered mental status reported by the caregivers at the facility. Reportedly, he has been having a cough over several days, was actually tested for Covid-19 there because wasn't available at time of admission in the Emergency Room. In the Emergency Room, he was tested for Covid-19 here and found to be positive. On initial admission, he was found to have altered mental status and also his 02 requirements were notably increased as he usually he uses 02 at the care home. After 02 was placed, he was found to be alert and awake and able to answer some questions but with his dementia, he was unable to provide any significant meaningful history. He was admitted here 2 months previously for a left lower lobe pneumonia and he was off for 10 days prior to discharge back to the care home. In the Emergency Room, laboratory initially did show he had a white count of 6.3 without a left shift. Lymphocytes were low. Coagulation studies showed an elevated PT/PTT as well as a fibrinogen but a normal D-dimer. Chemistries did show a slightly elevated lactic acid, initially 2.5, creatinine 1.76, bilirubin slightly elevated at 1.5. Liver functions were all within normal limits. He does have elevated troponin at 0.34 which is chronic as well as he had a BNP of 2,040 and C-reactive protein of 14.2. He also had a positive group A strep which he has had in the past. His vital signs did show he was having some hypertension, systolic running in the 160s to 180s with diastolic in the 120s and 130s. He was obviously short of breath, respirations up to 28 but oxygen saturation 87% on room air and then with nasal cannula 3 liters at 96%. He is now going to be admitted for Covid-19 pneumonia for further evaluation and treatment. He was in stable condition at time of admission. PAST MEDICAL HISTORY: 1. Chronic renal insufficiency with baseline creatinine of about 1.82 chronic elevated troponins.. 2. Multiple removal of skin cancer. 3. Chronic constipation. 4. Diabetes mellitus type 2. 5. Hyperlipidemia. 6. Hypertension. 7. Dementia. 8. Previous myocardial infarction. PAST SURGICAL HISTORY: Multiple skin cancer removals. CURRENT MEDICATIONS: Please see updated list from awaiting verification from the care home. ALLERGIES: Hydrocodone, Penicillin, NSAIDS. FAMILY HISTORY: Noncontributory. SOCIAL HISTORY: The patient is a resident of [facility]. He is . He has no history of smoking, drinking or illicit drugs per chart review. REVIEW OF SYSTEMS: Unable to fully obtain due to patient's inability to communicate due to dementia. PHYSICAL EXAMINATION: VITAL SIGNS: On presentation to the Emergency Room, temperature was 97.2, pulse 96, blood pressure 165/113, oxygen saturation 97% on room air, with nasal cannula anywhere from 96 to 97% with 3-liter nasal cannula. On admission to the medical/surgical floor, the patient was showing some mild respiratory distress with increased effort of respiration. On exam, he sounded wet. His blood pressure at time of admission to the medical-surgical floor was 181/133, respirations were 28 and he was satting 97% on room air. Heart rate of 79, he was afebrile. GENERAL: The patient showed a little bit of distress due to his increased work to breathe. He was a little anxious but he was alert. HEENT: Tympanic membranes are clear bilaterally. Oropharynx is pink and moist, no lesions. NECK: Supple, non-tender, full range of motion. No obvious jugular venous distention. CHEST: Lung sounds were notable for crackles throughout all medellin with wet- sounding cough, showing a little bit of respiratory distress, using his accessory muscles. CARDIOVASCULAR: Slightly irregular rate and rhythm without appreciable murmurs, rubs, or gallops. ABDOMEN: Obese, soft, non-tender, positive bowel sounds. BACK: Without any vertebral or CVA tenderness. EXTREMITIES: No cyanosis, clubbing, or edema. RECTAL: Exam deferred. NEUROLOGIC: Cranial nerves II through XII appear to be grossly intact as tested. No obvious deficits. He was alert, oriented to himself and location but not year or date. SKIN: Warm, pink and dry. LABORATORY: CBC on admission showed a white count 6,300, hemoglobin 16.7, hematocrit 51.6, platelet count at 199,000, differential showed to be a left shift currently. Coagulation studies did show an elevated PT of 12.9, PTT 31.7, D-dimer normal at 179 but fibrinogen was elevated at 497. Chemistries showed an elevation of lactic acid to 2.6, it was down to 2.5 prior to admission. C-reactive protein was elevated at 14.2, LDH normal at 160, BNP elevated at 2,040. Creatinine 1.76, BUN 47. Electrolytes within normal limits. Carbon dioxide was a little low at 19. Liver functions all within normal limits except for a slightly elevated bilirubin at 1.5. Urinalysis showed greater than 300 protein with a moderate amount of blood, small amount of bilirubin and 5 to 10 RBCs, no epithelials, no WBCs, no bacteria on initial urinary bladder catheterization. Group A strep was positive. MICROBIOLOGY: Upper respiratory viral panel was positive for Covid-19. Blood cultures are pending. RADIOLOGY: Initial chest x-ray on admission, single view chest per radiology interpretation showed bilateral pulmonary infiltrates consistent with pneumonia. . ASSESSMENT: 1. Covid-19 pneumonitis with developing pneumonia bilaterally with high risk for hospital acquired pneumonia with the patient being recently treated for pneumonia as well as a resident of a long-term care facility. 2. Acute respiratory distress secondary to #1 and acute fluid overload prior to admission with the patient having an elevated BNP of 2,050 with no mention of chronic heart failure. 3. Chronic renal insufficiency, creatinine around 1.82, with chronic elevated troponins. 4. Diabetes mellitus type 2. 5. Hypertension with hypertensive urgency on admission. 6. Dementia. 7. History of previous myocardial infarction. PLAN: The patient is going to be admitted for initiation of treatment protocol for Covid-19. We will hold off on any steroids at this point. He was given almost 3 liters of fluids in the Emergency Room prior to admission to the medical/surgical floor so I think that is why he sounds wet and in some mild distress. I am going to go ahead and give him 80 of Lasix and get his blood pressure down with hopefully nitro and Labetalol. As he stabilizes, will continue treatment with antibiotics with azithromycin, Levaquin, Cefepime and vancomycin as he was just in the hospital in the last 2 months and is high risk for multi-drug resistant organisms and hospital-acquired pneumonia. He will be on an 1800 ADA diet. He will be on sliding scale per protocol. He will be on PPI for gastric protection. He does have a Hughes catheter in place. Will monitor that for the next 24 to 48 hours and ancipitate removal once he stabilizes. Will saline-lock him. His troponins in the past have been elevated and this is more likely due to chronic renal failure. His BNP is elevated but there is no mention in his history of congestive heart failure which could be some elevation from elevated BUN which is understandable but I think at this point he is just a little fluid-overloaded. Will monitor closely, hopefully we can stabilize his fluid status and continue with treatment. He will be on 02 as needed, titrate between 92 and 94% on 2 liter to 4 liter nasal cannula as needed. Will repeat labs in the morning and will anticipate his length of stay to be at least 3 to 5 days. Of course, he is from [facility] and we will return him back to [facility] once he is clinically stable. Until then, we will continue to monitor and treat as needed. #[id number] MTDD
[2019-12-31] MEDS ORDERED: NITROGLYCERIN 0.4 MG/HR PATCH TOP ONE (18:32)
[2019-12-31] MEDS ORDERED: FUROSEMIDE INJ 100 MG/10 ML VIAL IV ONE (18:34)
[2019-12-31] MEDS ORDERED: FUROSEMIDE INJ 40 MG/4 ML VIAL ONE ×2 (18:40)
[2019-12-31] MEDS ORDERED: MAGNESIUM HYDROXIDE 30 ML UD PO PRN (18:53)
[2019-12-31] MEDS ORDERED: ACETAMINOPHEN 325 MG TAB PO PRN (18:53)
[2019-12-31] MEDS ORDERED: GLUCAGON INJ 1 MG VIAL SUBCU PRN (18:53)
[2019-12-31] MEDS ORDERED: DEXTROSE 50% 25 GM/50 ML SYG IV PRN (18:53)
[2019-12-31] MEDS ORDERED: VANCOMYCIN HCL INJ 1,500 MG in SODIUM CHLORIDE 0.9% 500ML 500 ML IVPB ONE (19:00)
[2019-12-31] MEDS ORDERED: LABETALOL INJ 5 MG/ML VIAL IV ONE ×2 (19:07→21:29)
[2019-12-31] MEDS ORDERED: levoFLOXacin 750MG IV 750 MG in PREMIX BAG 1 BAG IVPB SCH (19:30)
[2019-12-31] MEDS ORDERED: SODIUM CHLORIDE 0.9% 250ML 250 ML ONE (19:31)
[2019-12-31] MEDS ORDERED: CEFEPIME 2 GM VIAL ONE (19:31)
[2019-12-31] MEDS ORDERED: AZITHROMYCIN IV 500 MG VIAL IVPB ONE (19:31)
[2019-12-31] MEDS ORDERED: SODIUM CHL 0.9% 50ML MIN-BAG+ 50 ML IVPB ONE (19:32)
[2019-12-31] MEDS ORDERED: ALBUTEROL INHALER 64 PUFF/8GM INH PRN (20:03)
[2019-12-31] MEDS: CEFEPIME 2 GM in SODIUM CHL 0.9% 50ML MIN-BAG+ 50 ML IVPB SCH (20:08)
[2019-12-31] MEDS ORDERED: VANCOMYCIN HCL INJ 1,000 MG VIAL IVPB ONE (20:37)
[2019-12-31] MEDS ORDERED: VANCOMYCIN HCL INJ 500 MG VIAL ONE (20:37)
[2019-12-31] MEDS ORDERED: SODIUM CHLORIDE 0.9% 500ML 500 ML ONE (20:38)
[2019-12-31] MEDS: IV SET AND CAP CHANGE INJ INJ SCH (21:07)
[2019-12-31] MEDS: AZITHROMYCIN IV 500 MG in SODIUM CHLORIDE 0.9% 250ML 250 ML IVPB SCH (22:37)
[2019-12-31] MEDS: INSULIN LISPRO 100 UNITS/ML PEN SUBCU SCH (22:38)
[2020-01-01] MEDS ORDERED: SODIUM CHL 0.9% 50ML MIN-BAG+ 50 ML IVPB ONE (04:19)
[2020-01-01] MEDS ORDERED: CEFEPIME 2 GM VIAL ONE (04:19)
[2020-01-01] MEDS ORDERED: PANTOPRAZOLE SODIUM IV 40 MG VIAL IV SCH (06:30)
[2020-01-01] MEDS: CEFEPIME 2 GM in SODIUM CHL 0.9% 50ML MIN-BAG+ 50 ML IVPB SCH ×2 (06:32→18:00)
[2020-01-01] MEDS ORDERED: VANCOMYCIN PER PHARMACY IVPB SCH (08:00)
[2020-01-01] MEDS: INSULIN LISPRO 100 UNITS/ML PEN SUBCU SCH ×4 (08:29→22:05)
[2020-01-01] MEDS: ALBUTEROL INHALER 64 PUFF/8GM INH SCH ×4 (08:35→20:45)
[2020-01-01] MEDS ORDERED: ISOSORBIDE MONONITRATE (IMDUR) 30 MG TAB ONE (08:48)
[2020-01-01] MEDS ORDERED: CARVEDILOL 12.5 MG TAB ONE (08:48)
[2020-01-01] MEDS ORDERED: MEMANTINE 10 MG TAB ONE (08:48)
[2020-01-01] MEDS: CALCITRIOL 0.25 MCG CAP PO SCH (08:55)
[2020-01-01] MEDS: ASPIRIN (CHEWABLE) 81 MG TAB PO SCH (08:55)
[2020-01-01] MEDS: SPIRONOLACTONE 25 MG TAB PO SCH (08:56)
[2020-01-01] MEDS: guaiFENesin ER TAB 600 MG TAB PO SCH ×3 (08:56→22:22)
[2020-01-01] MEDS: APIXABAN 5 MG TAB PO SCH ×2 (08:56→22:20)
[2020-01-01] MEDS: CARVEDILOL 3.125 MG TAB PO SCH ×2 (08:56→22:22)
[2020-01-01] MEDS: MEMANTINE 10 MG TAB PO SCH ×2 (08:57→22:21)
[2020-01-01] MEDS: VALSARTAN 80 MG TAB PO SCH (08:57)
[2020-01-01] MEDS: ISOSORBIDE MONONITRATE (IMDUR) 30 MG TAB PO SCH (08:57)
[2020-01-01] MEDS ORDERED: cloNIDine HCL 0.1 MG TAB PO ONE (09:21)
[2020-01-01] MEDS ORDERED: cloNIDine HCL 0.1 MG TAB ONE (09:22)
[2020-01-01] MEDS ORDERED: REMOVE OLD PATCH TOP ONE (16:45)
[2020-01-01] MEDS: traMADol HCL 50 MG TAB PO PRN (17:21)
[2020-01-01] MEDS: AZITHROMYCIN IV 500 MG in SODIUM CHLORIDE 0.9% 250ML 250 ML IVPB SCH (18:30)
[2020-01-01] MEDS ORDERED: DONEPEZIL HCL 5 MG TAB ONE (19:50)
[2020-01-01] MEDS ORDERED: guaiFENesin ER TAB 600 MG TAB ONE (19:50)
[2020-01-01] MEDS ORDERED: CITALOPRAM HBR 20 MG TAB ONE (19:51)
[2020-01-01] MEDS ORDERED: CETIRIZINE HCL 10 MG TAB PO ONE (19:51)
[2020-01-01] MEDS: CITALOPRAM HBR 20 MG TAB PO SCH (22:19)
[2020-01-01] MEDS: DONEPEZIL HCL 5 MG TAB PO SCH (22:19)
[2020-01-01] MEDS: CETIRIZINE HCL 10 MG TAB PO SCH (22:20)
[2020-01-02] MEDS: CEFEPIME 2 GM in SODIUM CHL 0.9% 50ML MIN-BAG+ 50 ML IVPB SCH ×2 (06:26→18:44)
[2020-01-02] MEDS: PANTOPRAZOLE SODIUM TAB 40 MG PO SCH (06:26)
[2020-01-02] MEDS: CALCITRIOL 0.25 MCG CAP PO SCH (07:14)
[2020-01-02] MEDS: ALBUTEROL INHALER 64 PUFF/8GM INH SCH ×4 (07:20→21:40)
[2020-01-02] MEDS: INSULIN LISPRO 100 UNITS/ML PEN SUBCU SCH ×4 (08:37→21:51)
--- NOTE | 2020-01-02 09:11 | CT ---
EXAM DESCRIPTION: Chest w/o Contrast CLINICAL HISTORY: 84 years Male, covid 19 pna COMPARISON: Chest x-ray dated 31 December 2019 TECHNIQUE: Transaxial images were obtained without intravenous contrast media. Sagittal and coronal reconstruction was performed.This exam was performed according to our departmental dose-optimization program, which includes automated exposure control, adjustment of the mA and/or kV according to patient size and/or use of iterative reconstruction technique. FINDINGS: The thyroid is normal in appearance. No pathologic axillary adenopathy is observed. A small left and moderate right sided pleural effusions are observed. No adrenal masses are detected. Calcific atherosclerotic changes observed in the aorta without evidence of aneurysmal dilatation. Atelectatic type lung disease and peribronchial interstitial lung disease is observed in both lungs. There are some groundglass infiltrate in the lung apices. Degenerative changes are seen throughout the thoracic spine. IMPRESSION: 1. Bilateral pleural effusions are observed with the larger on the patient's right. 2. Diffuse interstitial infiltrate is observed bilaterally consistent with a viral pneumonia. Electronically signed by: Christoph Sanchez MD 01/02/2020 9:09 AM CDT
[2020-01-02] MEDS: VALSARTAN 80 MG TAB PO SCH (10:52)
[2020-01-02] MEDS: APIXABAN 5 MG TAB PO SCH ×2 (10:53→21:50)
[2020-01-02] MEDS: SPIRONOLACTONE 25 MG TAB PO SCH (10:53)
[2020-01-02] MEDS: ISOSORBIDE MONONITRATE (IMDUR) 30 MG TAB PO SCH (10:53)
[2020-01-02] MEDS: ASPIRIN (CHEWABLE) 81 MG TAB PO SCH (10:54)
[2020-01-02] MEDS: MEMANTINE 10 MG TAB PO SCH ×2 (10:55→21:49)
[2020-01-02] MEDS: CARVEDILOL 3.125 MG TAB PO SCH ×2 (10:56→21:48)
[2020-01-02] MEDS: VANCOMYCIN HCL INJ 1,000 MG, VANCOMYCIN HCL INJ 500 MG in SODIUM CHLORIDE 0.9% 250ML 25... IVPB SCH (10:56)
[2020-01-02] MEDS: guaiFENesin ER TAB 600 MG TAB PO SCH ×3 (10:56→21:49)
[2020-01-02] MEDS ORDERED: BENZOCAINE-MENTH LOZ (CEPACOL) 1 EA LOZ MT PRN (11:26)
[2020-01-02] MEDS: DEXAMETHASONE INJ 10 MG/ML VIAL IV SCH (11:56)
[2020-01-02] MEDS: guaiFENesin 100 MG/5 ML 10 ML UD PO PRN ×2 (12:13→18:44)
[2020-01-02] MEDS: AZITHROMYCIN IV 500 MG in SODIUM CHLORIDE 0.9% 250ML 250 ML IVPB SCH (19:25)
[2020-01-02] MEDS: CETIRIZINE HCL 10 MG TAB PO SCH (21:46)
[2020-01-02] MEDS: DONEPEZIL HCL 5 MG TAB PO SCH (21:49)
[2020-01-02] MEDS: CITALOPRAM HBR 20 MG TAB PO SCH (21:50)
[2020-01-03] MEDS: CEFEPIME 2 GM in SODIUM CHL 0.9% 50ML MIN-BAG+ 50 ML IVPB SCH ×2 (06:38→18:36)
[2020-01-03] MEDS: PANTOPRAZOLE SODIUM TAB 40 MG PO SCH (06:38)
[2020-01-03] MEDS: ALBUTEROL INHALER 64 PUFF/8GM INH SCH ×4 (07:35→22:00)
[2020-01-03] MEDS: INSULIN LISPRO 100 UNITS/ML PEN SUBCU SCH ×4 (08:30→22:06)
[2020-01-03] MEDS: DEXAMETHASONE INJ 10 MG/ML VIAL IV SCH (08:30)
[2020-01-03] MEDS: CALCITRIOL 0.25 MCG CAP PO SCH (08:30)
[2020-01-03] MEDS: VALSARTAN 80 MG TAB PO SCH (08:31)
[2020-01-03] MEDS: ASPIRIN (CHEWABLE) 81 MG TAB PO SCH (08:32)
[2020-01-03] MEDS: CARVEDILOL 3.125 MG TAB PO SCH ×2 (08:32→21:32)
[2020-01-03] MEDS: MEMANTINE 10 MG TAB PO SCH ×2 (08:32→21:33)
[2020-01-03] MEDS: guaiFENesin ER TAB 600 MG TAB PO SCH ×3 (08:32→21:34)
[2020-01-03] MEDS: ISOSORBIDE MONONITRATE (IMDUR) 30 MG TAB PO SCH (08:33)
[2020-01-03] MEDS: SPIRONOLACTONE 25 MG TAB PO SCH (08:33)
[2020-01-03] MEDS: APIXABAN 5 MG TAB PO SCH ×2 (08:35→21:33)
--- NOTE | 2020-01-03 08:45 | PN ---
SUPERVISING PHYSICIAN: Eriberto Ivey MD DATE: 01/01/20 SUBJECTIVE: The patient seems to be a little bit more stable today. He is not quite as wet sounding on exam. He does not speak much, but he is alert and not showing any distress. OBJECTIVE: VITAL SIGNS: Temperature 97.6, pulse 90, blood pressure 130/81, respirations 22, saturation 96% on 2 liters nasal cannula. GENERAL: The patient is resting comfortably. He does not appear to be in any acute distress. CHEST: Sounds are much clearer today, just diminished towards the bases. There are just some very faint rhonchi heard bilaterally, most prominent on the lateral aspects, but improved from yesterday. HEART: Slightly irregular rate and rhythm. ABDOMEN: Soft, nontender. Positive bowel sounds. EXTREMITIES: No edema. NEUROLOGIC: Alert and oriented to himself and location, but again not to the day. He does not appear to have any focal deficits. SKIN: Warm, pink and dry. LABORATORY: CBC today shows white count 7,000, hemoglobin 17, hematocrit 51.9, platelet count 191,000. Differential does continue to show a left shift. Coagulation studies, no new reported results. Chemistries show normal electrolytes. Carbon dioxide is down to 19. BUN 51, creatinine 1.71, which is actually is down a little bit from admission. Lactic acid did normalized to 2.0, calcium 8, bilirubin slightly elevated at 1.3. AST and ALT within normal limits. MICROBIOLOGY: Group Strep A positive. Sputum culture pending. Blood cultures pending. RADIOLOGY: No additional radiographic studies. ASSESSMENT: 1. COVID-19 pneumonitis with developing pneumonia bilaterally with high risk for hospital acquired pneumonia with the patient being recently treated for pneumonia as well as a resident of a long-term care facility. 2. Acute respiratory distress secondary to #1 and acute fluid overload on admission showing good response to treatment with nitro and Lasix and better control of his blood pressure. 3. Chronic renal insufficiency, showing some slight improvement. 4. Chronic elevated troponin secondary to #3. 5. Diabetes mellitus type 2. 6. Hypertension with hypertensive urgency on admission, showing better control now. 7. Dementia. 8. History of previous myocardial infarctions. PLAN: Right now, the patient seems to be fairly stable. We will continue with current plan of care with COVID-19 protocol. He is on steroids and already was on anticoagulation with Eliquis prior to admission. He is on antibiotics with azithromycin and cefepime considering he is from the [facility] and has been recently treated for pneumonia within the last month. Also, we put him on vancomycin as well. We will continue with these medications. We will watch his fluids carefully and keep him on the more dry side. I anticipate we will probably see a bump in his kidney function and we will watch that closely. I anticipate he is going to be a slow taper and we will continue to monitor his laboratory studies as they level and show trend to a more controlled baseline and we will send him back to [facility]. Until then, we will continue to monitor and treat as needed. #[id number] [facility]
--- NOTE | 2020-01-03 08:56 | PN ---
SUPERVISING PHYSICIAN: Eriberto Ivey MD DATE: 01/02/20 SUBJECTIVE: The patient seems to be stable at this point in regards to his fluid balance and respiratory effort. He is not having any additional complaints. His vital signs are fairly stable. OBJECTIVE: VITAL SIGNS: Temperature 97.4, pulse 81, blood pressure 146/90, respirations 20, saturation 94% on 2 liters nasal cannula. GENERAL: The patient is resting comfortably. He does not appear to be in any acute distress. CHEST: Sounds are much clearer today, just diminished towards the bases. There are just some very faint rhonchi heard bilaterally, most prominent on the lateral aspects, but improved from yesterday. HEART: Slightly irregular rate and rhythm. ABDOMEN: Soft, nontender. Positive bowel sounds. EXTREMITIES: No edema. NEUROLOGIC: Alert and oriented to himself and location, but again not to the day. He does not appear to have any focal deficits. SKIN: Warm, pink and dry. LABORATORY: CBC today shows white count 5,000, hemoglobin 14.4, hematocrit 44.6, platelet count 158,000. Differential does continue to show a left shift. Decreased lymphocytes. Coagulation studies today did show a D-dimer that was elevated to 273 compared to D-dimer on admission of 179. Fibrinogen is down a little bit to 471. PTT is still elevated, however, he is on Eliquis. Chemistries show today his creatinine did show some elevation at 2.15 with BUN 62. Serum osmolality 298. He did get quite a bit of Lasix and he remains on spironolactone. There electrolytes are within normal limits. Anion gap low at 11. Blood sugars ranging between 151 and 233. Calcium 8.3, magnesium normal at 2.1. Liver functions showing a slight elevation in bilirubin at 1.1, otherwise ALT and AST are normal. Troponin is actually down to 0.22 from 0.34. C- reactive protein is down to 11.7 compared to admission of 14.2. RADIOLOGY: CT of his chest per radiologic interpretation shows bilateral pleural effusions, a little bit larger on the patient's right with diffuse interstitial infiltrates bilaterally consistent with viral pneumonia. ASSESSMENT: 1. COVID-19 pneumonitis with developing pneumonia bilaterally with high risk for hospital acquired pneumonia with the patient being recently treated for pneumonia as well as a resident of a long-term care facility. 2. Acute respiratory distress secondary to #1 and acute fluid overload on admission showing good response to treatment with nitro and Lasix and better control of his blood pressure. 3. Chronic renal insufficiency, showing some slight improvement. 4. Chronic elevated troponin secondary to #3. 5. Group A Streptococcus pharyngitis. 6. Diabetes mellitus type 2. 7. Hypertension with hypertensive urgency on admission, showing better control now. 8. Dementia. 9. History of previous myocardial infarctions. PLAN: The patient seems to be fairly stable, although his kidney functions are dry. He was given a lot of Lasix on admission and he remains on spironolactone. Therefore, I do not anticipate that we will see much improvement while he is on vancomycin. We will certainly watch and if we need to give a little bit of fluids to correct that, we can. He does remain on Eliquis for anticoagulation. He is on antibiotics with cefepime, vancomycin and azithromycin. He is on steroids with Decadron 6 mg q daily. I anticipate is probably going to be slow improvement. Until then, we will continue to monitor and treat as needed. When he does show trending on his labs and clinically, we will certainly discharge him back to [facility]. #[id number] [facility]
[2020-01-03] MEDS: AZITHROMYCIN IV 500 MG in SODIUM CHLORIDE 0.9% 250ML 250 ML IVPB SCH (19:16)
[2020-01-03] MEDS: IV SET AND CAP CHANGE INJ INJ SCH (19:17)
[2020-01-03] MEDS ORDERED: VANCOMYCIN HCL INJ 1,000 MG VIAL IVPB ONE (19:59)
[2020-01-03] MEDS ORDERED: VANCOMYCIN HCL INJ 500 MG VIAL ONE (20:00)
[2020-01-03] MEDS ORDERED: SODIUM CHLORIDE 0.9% 250ML 250 ML ONE (20:00)
[2020-01-03] MEDS: DONEPEZIL HCL 5 MG TAB PO SCH (21:31)
[2020-01-03] MEDS: CETIRIZINE HCL 10 MG TAB PO SCH (21:32)
[2020-01-03] MEDS: CITALOPRAM HBR 20 MG TAB PO SCH (21:33)
[2020-01-03] MEDS: VANCOMYCIN HCL INJ 1,000 MG, VANCOMYCIN HCL INJ 500 MG in SODIUM CHLORIDE 0.9% 250ML 25... IVPB SCH (21:35)
[2020-01-04] MEDS: PANTOPRAZOLE SODIUM TAB 40 MG PO SCH (06:23)
[2020-01-04] MEDS: CEFEPIME 2 GM in SODIUM CHL 0.9% 50ML MIN-BAG+ 50 ML IVPB SCH ×2 (06:23→18:47)
--- NOTE | 2020-01-04 07:54 | PN ---
SUPERVISING PHYSICIAN: Eriberto Ivey MD DATE: 01/03/20 SUBJECTIVE: The patient today reports he is feeling better. He is breathing a little easier. He is sitting in the bedside chair today. He looks like he feels better. He remains stable in regards to his vital signs. OBJECTIVE: VITAL SIGNS: Temperature 97.9, pulse 81, blood pressure 150/96, respirations 17, saturation 99% on 2 liters nasal cannula. GENERAL: The patient is resting comfortably. He does not appear to be in any acute distress. CHEST: Sounds are clear today, just diminished towards the bases. There are just some very faint rhonchi heard bilaterally, most prominent on the lateral aspects, but improved from yesterday. HEART: Slightly irregular rate and rhythm. ABDOMEN: Soft, nontender. Positive bowel sounds. EXTREMITIES: No edema. NEUROLOGIC: Alert and oriented to himself and location, but again not to the day. He does not appear to have any focal deficits. SKIN: Warm, pink and dry. LABORATORY: CBC shows white count stable at 4,900, hemoglobin and hematocrit stable at 14.8 and 44.9, platelet count 174,000. Differential does continue to show a left shift. Coagulation studies showed D-dimer yesterday was elevated at 273 compared to D-dimer on admission of 179. Chemistries show his creatinine is down to 1.87 from 2.15 yesterday. Other electrolytes remain within normal limits. Blood sugars elevated, but stable between 174 and 233. Magnesium 2.1. MICROBIOLOGY: Blood cultures remain negative at 3 days. Sputum culture still pending. RADIOLOGY: No additional radiographic studies today. ASSESSMENT: 1. COVID-19 pneumonitis with developing pneumonia bilaterally with high risk for hospital acquired pneumonia with the patient being recently treated for pneumonia as well as a resident of a long-term care facility. 2. Acute respiratory distress secondary to #1 and acute fluid overload on admission showing good response to treatment with nitro and Lasix and better control of his blood pressure. 3. Chronic renal insufficiency, showing some slight improvement. 4. Chronic elevated troponin secondary to #3. 5. Group A Streptococcus pharyngitis. 6. Diabetes mellitus type 2. 7. Hypertension with hypertensive urgency on admission, showing better control now. 8. Dementia. 9. History of previous myocardial infarctions. PLAN: We will continue current plan of care care at this point. I anticipate if he continues to progress as well as he is, hopefully he will be able to discharge in the next 24 to 48 hours. He does remain on Eliquis, antibiotics with cefepime, azithromycin and vancomycin. He is on Decadron. We will follow labs per protocol. Until the patient can transition to [facility], we will continue to monitor and treat as needed. #[id number] [facility]
[2020-01-04] MEDS: INSULIN LISPRO 100 UNITS/ML PEN SUBCU SCH ×4 (08:15→20:37)
[2020-01-04] MEDS: ISOSORBIDE MONONITRATE (IMDUR) 30 MG TAB PO SCH (09:28)
[2020-01-04] MEDS: DEXAMETHASONE INJ 10 MG/ML VIAL IV SCH (09:29)
[2020-01-04] MEDS: ASPIRIN (CHEWABLE) 81 MG TAB PO SCH (09:29)
[2020-01-04] MEDS: CARVEDILOL 3.125 MG TAB PO SCH ×2 (09:29→20:27)
[2020-01-04] MEDS: guaiFENesin ER TAB 600 MG TAB PO SCH ×3 (09:29→20:29)
[2020-01-04] MEDS: APIXABAN 5 MG TAB PO SCH ×2 (09:30→20:27)
[2020-01-04] MEDS: VALSARTAN 80 MG TAB PO SCH (09:30)
[2020-01-04] MEDS: MEMANTINE 10 MG TAB PO SCH ×2 (09:30→20:29)
[2020-01-04] MEDS: SPIRONOLACTONE 25 MG TAB PO SCH (09:30)
[2020-01-04] MEDS: ALBUTEROL INHALER 64 PUFF/8GM INH SCH ×4 (09:40→21:01)
[2020-01-04] MEDS: CALCITRIOL 0.25 MCG CAP PO SCH (11:24)
[2020-01-04] MEDS: DOCUSATE SODIUM 100 MG CAP PO SCH (14:38)
--- NOTE | 2020-01-04 15:00 | PN ---
SUPERVISING PHYSICIAN: Eriberto Ivey M.D. DATE: 01/04/20 SUBJECTIVE: The patient is lying in bed asleep. He awakens easily. He is very confused, which is his baseline. Nursing has reported no problems. He is improving some clinically. OBJECTIVE: VITAL SIGNS: Temperature 97.6, heart rate 75, blood pressure 175/79, respiratory rate 20, O2 saturation 93% on 2 liters nasal cannula. RESPIRATORY: Diminished breath sounds throughout. No wheezing or rales noted. CARDIAC: Regular rate, irregular rhythm. GASTROINTESTINAL: Abdomen is soft, nondistended, non-tender. Bowel sounds are positive. NEUROLOGIC: He is awake. Oriented to person only. LABORATORY: CBC is unremarkable, except he does have a left shift on differential. Lymphocytes are low at 0.3 and 6.5%. D-dimer is pending. Fibrinogen has slightly improved to 395. Sodium 134, calcium 8.1, C reactive protein has improved slightly to 6.8. Preliminary blood cultures show no growth after 3 days. Sputum culture is pending. All other labs and films have been reviewed via the EMR. ASSESSMENT: 1. COVID-19 pneumonitis with developing pneumonia bilaterally with high risk for hospital acquired pneumonia with the patient being recently treated for pneumonia as well as a resident of a long-term care facility. 2. Acute respiratory distress secondary to #1 and acute fluid overload on admission showing good response to treatment with nitro and Lasix and better control of his blood pressure. 3. Chronic renal insufficiency, showing some slight improvement. 4. Chronic elevated troponin secondary to #3. 5. Group A Streptococcus pharyngitis. 6. Diabetes mellitus type 2. 7. Hypertension with hypertensive urgency on admission, showing better control now. 8. Dementia. 9. History of previous myocardial infarctions. PLAN: We will continue present supportive care. Will continue to monitor his cultures as well as his lab. Will do a chest x-ray and routine lab plus COVID lab in the morning. I have added Mucinex to his medicines and we may need to increase his Albuterol. Will continue to monitor closely and follow as needed. #[id number] MTDD
[2020-01-04] MEDS: AZITHROMYCIN IV 500 MG in SODIUM CHLORIDE 0.9% 250ML 250 ML IVPB SCH (19:34)
[2020-01-04] MEDS: CITALOPRAM HBR 20 MG TAB PO SCH (20:27)
[2020-01-04] MEDS: DONEPEZIL HCL 5 MG TAB PO SCH (20:27)
[2020-01-04] MEDS: CETIRIZINE HCL 10 MG TAB PO SCH (20:30)
[2020-01-05] MEDS: PANTOPRAZOLE SODIUM TAB 40 MG PO SCH (06:13)
[2020-01-05] MEDS: CEFEPIME 2 GM in SODIUM CHL 0.9% 50ML MIN-BAG+ 50 ML IVPB SCH ×2 (06:13→18:39)
--- NOTE | 2020-01-05 06:46 | RAD ---
EXAM: XR Chest, 1 View CLINICAL HISTORY: covid TECHNIQUE: Frontal view of the chest. COMPARISON: 12/31/2019. FINDINGS: Lungs: Bilateral interstitial and airspace consolidation present increased on the right. Pleural space: Unremarkable. No pneumothorax. Heart: Stable cardiac prominence. Mediastinum: Unremarkable. Bones/joints: Unremarkable. IMPRESSION: Bilateral interstitial and airspace consolidation present increased on the right. Electronically signed by: Liss Wallace MD 01/05/2020 6:44 AM CDT
[2020-01-05] MEDS: INSULIN LISPRO 100 UNITS/ML PEN SUBCU SCH ×4 (08:15→20:54)
[2020-01-05] MEDS: ALBUTEROL INHALER 64 PUFF/8GM INH SCH ×4 (08:38→20:07)
[2020-01-05] MEDS: SPIRONOLACTONE 25 MG TAB PO SCH (09:03)
[2020-01-05] MEDS: APIXABAN 5 MG TAB PO SCH ×2 (09:03→20:25)
[2020-01-05] MEDS: VALSARTAN 80 MG TAB PO SCH (09:03)
[2020-01-05] MEDS: MEMANTINE 10 MG TAB PO SCH ×2 (09:03→20:26)
[2020-01-05] MEDS: DOCUSATE SODIUM 100 MG CAP PO SCH (09:04)
[2020-01-05] MEDS: DEXAMETHASONE INJ 10 MG/ML VIAL IV SCH (09:04)
[2020-01-05] MEDS: ISOSORBIDE MONONITRATE (IMDUR) 30 MG TAB PO SCH (09:04)
[2020-01-05] MEDS: ASPIRIN (CHEWABLE) 81 MG TAB PO SCH (09:04)
[2020-01-05] MEDS: CARVEDILOL 3.125 MG TAB PO SCH ×2 (09:04→20:25)
[2020-01-05] MEDS: guaiFENesin ER TAB 600 MG TAB PO SCH ×3 (09:04→20:26)
[2020-01-05] MEDS: VANCOMYCIN HCL INJ 1,000 MG, VANCOMYCIN HCL INJ 250 MG in SODIUM CHLORIDE 0.9% 250ML 25... IVPB SCH (09:05)
[2020-01-05] MEDS: traMADol HCL 50 MG TAB PO PRN (15:03)
[2020-01-05] MEDS: AZITHROMYCIN IV 500 MG in SODIUM CHLORIDE 0.9% 250ML 250 ML IVPB SCH (19:22)
[2020-01-05] MEDS: CITALOPRAM HBR 20 MG TAB PO SCH (20:25)
[2020-01-05] MEDS: DONEPEZIL HCL 5 MG TAB PO SCH (20:25)
[2020-01-05] MEDS: CETIRIZINE HCL 10 MG TAB PO SCH (20:26)
[2020-01-06] MEDS: CEFEPIME 2 GM in SODIUM CHL 0.9% 50ML MIN-BAG+ 50 ML IVPB SCH ×2 (06:01→20:02)
[2020-01-06] MEDS: PANTOPRAZOLE SODIUM TAB 40 MG PO SCH (06:01)
--- NOTE | 2020-01-06 08:48 | PN ---
SUPERVISING PHYSICIAN: Eriberto Ivey M.D. DATE: 01/05/20 SUBJECTIVE: The patient is lying in bed, he is confused. Nursing reports there have been no issues overnight. OBJECTIVE: VITAL SIGNS: Temperature 97.4, heart rate 74, blood pressure 175/74, respiratory rate 20, O2 saturation 92% on 2 liters nasal cannula. RESPIRATORY: Essentially clear to auscultation, diminished at the bases with a few scattered rhonchi heard. CARDIAC: Regular rate, irregular rhythm. NEUROLOGIC: He is awake, alert, and oriented x3. LABORATORY: CBC shows WBC is 10.1, hemoglobin 14.4, hematocrit 43.2. Fibrinogen went up to 414. Blood sugars have run between 115 and mid 250. Sodium low at 132, creatinine 1.69, calcium 7.9, C-reactive protein 3.6. Preliminary blood cultures show no growth. Sputum culture is pending. Chest x-ray shows bilateral interstitial and airspace consolidation present and increased on the right. All other labs and films have been reviewed via the EMR. ASSESSMENT: 1. COVID-19 pneumonitis with developing pneumonia bilaterally with high risk for hospital acquired pneumonia with the patient being recently treated for pneumonia as well as a resident of a long-term care facility. 2. Acute respiratory distress secondary to #1 and acute fluid overload on admission showing good response to treatment with nitro and Lasix and better control of his blood pressure. 3. Chronic renal insufficiency, showing some slight improvement. 4. Chronic elevated troponin secondary to #3. 5. Group A Streptococcus pharyngitis. 6. Diabetes mellitus type 2. 7. Hypertension with hypertensive urgency on admission, showing better control now. 8. Dementia. 9. History of previous myocardial infarctions. PLAN: We will continue present supportive care. I have ordered that he be up in the chair and is allowed in his room as much as possible. Will continue aggressive pulmonary hygiene. I have also ordered pulmonary orders as per the pneumonia protocol. I have ordered lab for in the morning. Will wait until Wednesday for a chest x-ray. Hopefully, he can return to [facility] in the next 1 to 2 days and will continue to monitor closely and follow as needed. [facility][id number] [facility]
[2020-01-06] MEDS: ALBUTEROL INHALER 64 PUFF/8GM INH SCH ×4 (09:20→20:18)
[2020-01-06] MEDS: INSULIN LISPRO 100 UNITS/ML PEN SUBCU SCH ×4 (10:19→20:55)
[2020-01-06] MEDS: guaiFENesin ER TAB 600 MG TAB PO SCH ×3 (10:20→20:44)
[2020-01-06] MEDS: ASPIRIN (CHEWABLE) 81 MG TAB PO SCH (10:20)
[2020-01-06] MEDS: SPIRONOLACTONE 25 MG TAB PO SCH (10:21)
[2020-01-06] MEDS: DOCUSATE SODIUM 100 MG CAP PO SCH (10:21)
[2020-01-06] MEDS: CARVEDILOL 3.125 MG TAB PO SCH ×2 (10:22→20:47)
[2020-01-06] MEDS: ISOSORBIDE MONONITRATE (IMDUR) 30 MG TAB PO SCH (10:22)
[2020-01-06] MEDS: APIXABAN 5 MG TAB PO SCH ×2 (10:23→20:46)
[2020-01-06] MEDS: VALSARTAN 80 MG TAB PO SCH (10:24)
[2020-01-06] MEDS: DEXAMETHASONE INJ 10 MG/ML VIAL IV SCH (10:24)
[2020-01-06] MEDS: MEMANTINE 10 MG TAB PO SCH ×2 (10:24→20:42)
[2020-01-06] MEDS: VANCOMYCIN HCL INJ 1,000 MG, VANCOMYCIN HCL INJ 250 MG in SODIUM CHLORIDE 0.9% 250ML 25... IVPB SCH (10:28)
--- NOTE | 2020-01-06 15:53 | PN ---
SUPERVISING PHYSICIAN: Eriberto Ivey M.D. DATE: 01/06/20 SUBJECTIVE: The patient is lying in bed. He is asleep. He awakens easily. He is less lethargic today than he has been and he does answer some simple questions without problems. Nursing has reported that he seems to be more responsive today. There are no problems noted. OBJECTIVE: VITAL SIGNS: Temperature 97.8, heart rate 71, blood pressure 162/90, respiratory rate 18, O2 saturation 93% on 1 liter nasal cannula. RESPIRATORY: Somewhat diminished at the bases. CARDIAC: Regular rate and rhythm. NEUROLOGIC: He is awake and alert, but oriented to person only. LABORATORY: CBC is unremarkable with the exception of a left shift on differential. Lymphocytes are low at 0.5. Fibrinogen has normalized to 366. Blood sugars have run between 114 and 224. Sodium is slightly low at 133 with BUN 51, creatinine 1.66, calcium is 8. Alkaline phosphatase is 39. C reactive protein has improved but is still 2.8. Preliminary blood cultures show no growth after 5 days. Sputum culture shows normal respiratory marjorie. All other labs and films have been reviewed via the EMR. ASSESSMENT: 1. COVID-19 pneumonitis with developing pneumonia bilaterally with high risk for hospital acquired pneumonia with the patient being recently treated for pneumonia as well as a resident of a long-term care facility. 2. Acute respiratory distress secondary to #1 and acute fluid overload on admission showing good response to treatment with nitro and Lasix and better control of his blood pressure. 3. Chronic renal insufficiency, showing some slight improvement. 4. Chronic elevated troponin secondary to #3. 5. Group A Streptococcus pharyngitis. 6. Diabetes mellitus type 2. 7. Hypertension with hypertensive urgency on admission, showing better control now. 8. Dementia. 9. History of previous myocardial infarctions. PLAN: We will continue present supportive care. I have ordered bladder training and to discontinue the catheter as soon as possible. I have ordered lab and chest x-ray tomorrow. Hopefully we can get him off of oxygen in the next day or so, but need to find out if he is on oxygen at [facility]. I have also added Align to his medications. Will continue to monitor closely and follow as needed. [facility][id number] [facility]
[2020-01-06] MEDS ORDERED: BIFIDOBACTERIUM INFANTIS 4 MG CAP ONE (19:42)
[2020-01-06] MEDS: IV SET AND CAP CHANGE INJ INJ SCH (20:02)
[2020-01-06] MEDS: AZITHROMYCIN IV 500 MG in SODIUM CHLORIDE 0.9% 250ML 250 ML IVPB SCH (20:32)
[2020-01-06] MEDS: CITALOPRAM HBR 20 MG TAB PO SCH (20:42)
[2020-01-06] MEDS: DONEPEZIL HCL 5 MG TAB PO SCH (20:44)
[2020-01-06] MEDS: BIFIDOBACTERIUM INFANTIS 4 MG CAP PO SCH (20:44)
[2020-01-06] MEDS: CETIRIZINE HCL 10 MG TAB PO SCH (20:46)
[2020-01-07] MEDS: traMADol HCL 50 MG TAB PO PRN (02:29)
[2020-01-07] MEDS: PANTOPRAZOLE SODIUM TAB 40 MG PO SCH (06:26)
[2020-01-07] MEDS: CEFEPIME 2 GM in SODIUM CHL 0.9% 50ML MIN-BAG+ 50 ML IVPB SCH (06:26)
[2020-01-07] MEDS: ALBUTEROL INHALER 64 PUFF/8GM INH SCH ×2 (07:45→12:46)
[2020-01-07] MEDS: INSULIN LISPRO 100 UNITS/ML PEN SUBCU SCH ×2 (07:49→15:40)
[2020-01-07] MEDS: VANCOMYCIN HCL INJ 1,000 MG, VANCOMYCIN HCL INJ 250 MG in SODIUM CHLORIDE 0.9% 250ML 25... IVPB SCH (08:32)
[2020-01-07] MEDS: DEXAMETHASONE INJ 10 MG/ML VIAL IV SCH (08:33)
[2020-01-07] MEDS: MEMANTINE 10 MG TAB PO SCH (08:33)
[2020-01-07] MEDS: VALSARTAN 80 MG TAB PO SCH (08:33)
[2020-01-07] MEDS: SPIRONOLACTONE 25 MG TAB PO SCH (08:33)
[2020-01-07] MEDS: APIXABAN 5 MG TAB PO SCH (08:34)
[2020-01-07] MEDS: BIFIDOBACTERIUM INFANTIS 4 MG CAP PO SCH (08:34)
[2020-01-07] MEDS: DOCUSATE SODIUM 100 MG CAP PO SCH (08:35)
[2020-01-07] MEDS: CARVEDILOL 3.125 MG TAB PO SCH (08:35)
[2020-01-07] MEDS: ASPIRIN (CHEWABLE) 81 MG TAB PO SCH (08:36)
[2020-01-07] MEDS: guaiFENesin ER TAB 600 MG TAB PO SCH (08:36)
[2020-01-07] MEDS: ISOSORBIDE MONONITRATE (IMDUR) 30 MG TAB PO SCH (08:36)
[2020-01-07 11:04] VITALS: TEMP 97.5
--- NOTE | 2020-01-07 11:14 | RAD ---
EXAM: Chest,1 View CLINICAL INDICATION: COVID-19 COMPARISON: 01/05/2020 FINDINGS: A single view of the chest was obtained. The heart size is normal. The pulmonary vascularity is unremarkable. Extensive bilateral perihilar and lung base infiltrates are stable from prior. There is no pneumothorax or pleural effusion. IMPRESSION: Stable bilateral pulmonary infiltrates, consistent with pneumonia. Electronically signed by: Waldemar Gunter MD 01/07/2020 11:12 AM CDT
[2020-01-07 14:09] VITALS: BP 131/82; O2SAT 93
--- NOTE | 2020-01-11 14:57 | DS ---
SUPERVISING PHYSICIAN: Eriberto Ivey M.D. DISCHARGE DIAGNOSIS: 1. COVID-19 pneumonitis with developing pneumonia bilaterally with high risk for hospital acquired pneumonia with the patient being recently treated for pneumonia as well as a resident of a long-term care facility. 2. Acute respiratory distress secondary to #1 and acute fluid overload on admission showing good response to treatment with nitro and Lasix and better control of his blood pressure. 3. Chronic renal insufficiency, showing some slight improvement. 4. Chronic elevated troponin secondary to #3. 5. Group A Streptococcus pharyngitis. 6. Diabetes mellitus type 2. 7. Hypertension with hypertensive urgency on admission, showing better control now. 8. Dementia. 9. History of previous myocardial infarctions. HISTORY OF PRESENT ILLNESS: This is an 84 year-old male patient who resides at [facility]. He has a past medical history of hypertension, diabetes and dementia. He was brought to the emergency room by EMS with altered mental status. He also had had a cough and was actually tested for Covid-19 there. In the Emergency Room, he was again tested for Covid-19 and found to be positive. He had an altered mental status and his 02 saturations were notably decreased without oxygen. After 02 was placed, he was found to be alert and awake and able to answer some questions but he has fairly severe dementia. He was actually here 2 months ago for left lower lobe pneumonia. In the Emergency Room, his WBCs were 6,300 with a left shift. Lymphocytes were low. Coagulation studies showed an elevated PT/PTT as well as fibrinogen but a normal D-dimer. Chemistries did show a slightly elevated lactic acid, initially 2.5, creatinine 1.76, bilirubin elevated at 1.5. Liver functions were all within normal limits. He had an elevated troponin at 0.34 which is chronic. He had a BNP of 2,040 and CRP of 14.2. He also had a positive group A strep which he has had in the past. His vital signs showed he was having some hypertension, systolic running in the 160s to 180s with diastolic in the 120s and 130s. He was obviously short of breath with his respiratory rate at 28 and O2 saturation of 87% on room air and then with nasal cannula at 3 liters he was up to 96%. He was admitted to the hospital for Covid-19 pneumonia for further evaluation and treatment. He was admitted in stable condition. HOSPITAL COURSE: He was admitted to the hospital. He was given almost 3 liters of fluid in the Emergency Room prior to admission. He was given some Lasix and continued on antibiotics of azithromycin and Cefepime as well as Vancomycin and is at high risk for drug resistant organisms as well as healthcare acquired pneumonia. He will be on an 1800 ADA diet. He will also have sliding scale insulin per protocol and a PPI for GI prophylaxis. He does have a Hughes catheter in place that was placed in the Emergency Room. He slowly but progressively improved, although he still is quite confused which may be his baseline. He was on steroids prior to admission as well as anticoagulation with Eliquis. His vital signs slowly stabilized as well as his labs. He will be discharged back to [facility] in stable condition. His Hughes catheter was left in place as the patient was unable to be bladder trained. We will send specific instructions for Candido Morales to discontinue that Hughes catheter when appropriate. LABORATORY: WBCs remain stable between 4.9 and 7.4. H&H was stable at 15.2 and 45.8. He did continue to have a left shift on his differential. He also had low lymphocytes at 0.5. Fibrinogen was initially 497 and today it is 366. D- dimer was normal at 179 on admission and went up to 279 on discharge. Blood sugars ran between 74 and 262. Sodium did drop to 132 but is now 136. Potassium remains stable at 3.8, chloride at 108, creatinine jumped up as high as 1.89 and is now 1.56. His baseline creatinine is about 1.8. Calcium has been slightly low between 7.9 and 8.1. Troponin came down to 0.22. CRP was as high as 14.2 and went as low as 2.8 and on discharge today it is 8. His final blood cultures show no growth after 5 days. Sputum culture showed normal respiratory marjorie. Chest CT 2 days after admission showed: 1. Bilateral pleural effusions observed with the larger on the right side. 2. Diffuse interstitial infiltrate observed bilaterally consistent with viral pneumonia. Final chest x-ray showed stable bilateral pulmonary infiltrates consistent with pneumonia. DISCHARGE PLAN: The patient will be discharged to [facility] in stable condition. He is in fair condition. He is to resume his previous diet and increase his activity as tolerated. He is to followup with Dr. Ted, his primary care physician, within the next 1 to 2 weeks. In addition to his routine medications he will also be sent home on Albuterol, Align, Cefdinir, 3 days of Dexamethasone 4 mg, Guaifenesin and azithromycin. There will also be instructions sent to [facility] to manage the Hughes catheter, including bladder training and discontinue it when appropriate. He is to return to the hospital or followup with Dr. Jean for any problems or complications. DISCHARGE MEDICATIONS: 1. Lantus. 2. Clonidine. 3. Citalopram. 4. Isosorbide mononitrate. 5. Memantine. 6. Donepezil. 7. Cetirizine. 8. Nitroglycerin. 9. Humalog insulin. 10. Carvedilol. 11. Aspirin. 12. Calcitrol. 13. Tramadol. 14. Guaifenesin. 15. Benzonatate. 16. Eliquis. 17. Spironolactone. 18. Acetaminophen. 19. DuoNeb. 20. Olmesartan. 21. Cefdinir. 22. Prednisone. 23. Albuterol. 24. Align. 25. Dexamethasone. 26. Azithromycin. [facility][id number] [facility]
== END 2020-01-07 13:40 | DRG 177 ==
LOC: ER 12:30 → OBSVTOIN 17:58 → MS 17:58
PROVIDERS: ADMIT Nurse Practitioner Family; ATTEND Nurse Practitioner Acute Care
DX: U07.1 COVID-19 (principal); J12.89 Other viral pneumonia; Z68.41 Body mass index [BMI] 40.0-44.9, adult; E87.70 Fluid overload, unspecified; N18.9 Chronic kidney disease, unspecified; R79.89 Other specified abnormal findings of blood chemistry; J02.0 Streptococcal pharyngitis; R09.02 Hypoxemia; E11.22 Type 2 diabetes mellitus with diabetic chronic kidney disease; I16.0 Hypertensive urgency; I12.9 Hypertensive chronic kidney disease with stage 1 through stage 4 chronic kidney disease, or unspecified chronic kidney disease; I48.91 Unspecified atrial fibrillation; F03.90 Unspecified dementia, unspecified severity, without behavioral disturbance, psychotic disturbance, mood disturbance, and anxiety; I25.2 Old myocardial infarction; K21.9 Gastro-esophageal reflux disease without esophagitis; K59.09 Other constipation; E78.5 Hyperlipidemia, unspecified; Z88.5 Allergy status to narcotic agent; Z88.6 Allergy status to analgesic agent; Z88.0 Allergy status to penicillin; E66.9 Obesity, unspecified; Z79.4 Long term (current) use of insulin; Z79.82 Long term (current) use of aspirin; Z79.01 Long term (current) use of anticoagulants; Z79.891 Long term (current) use of opiate analgesic; Z79.899 Other long term (current) drug therapy; Z86.718 Personal history of other venous thrombosis and embolism

== ENCOUNTER 2020-01-12 10:37 | Observation (INO) | payer MEDICARE, BC ==
[2020-01-12] MEDS ORDERED: SODIUM CHLORIDE 0.9% (FLUSH) 10 ML SYG IV PRN ×2 (10:51→15:00)
--- NOTE | 2020-01-12 11:00 | ED.PDOC ---
History of Present Illness - General Chief Complaint: General Time Seen by Provider: 01/12/20 10:51 Additional Information: The patient is an 84 year old male resident of [facility], past medical history is significant for HTN, DM, CKD, CAD, dementia and recent diagnosis of COVID-19 for which he was admitted and discharged 5 days ago. The patient only moans in response to questioning and is unable to provide much history. He does state that he "hurts all over." EMS and NH staff reports that the patient has not been eating or drinking well, has overall been more lethargic and is not getting out of bed per his usual routine. His baseline is somewhat unclear, but past hospital records indicated he is at least conversant although significantly confused. He was recently admitted for COVID-19 pneumonia and discharged on home oxygen and with an indwelling calderon catheter. He was discharged on antibiotics and steroids. History is otherwise limited due to the patient's condition. - History of Present Illness Allergies/Adverse Reactions: Allergies Dill Oil Allergy (Verified 01/12/20 11:11) Hydrocodone Allergy (Verified 01/12/20 11:11) Penicillins Allergy (Verified 01/12/20 11:11) NSAIDs Adverse Reaction (Verified 01/12/20 11:11) Home Medications: Ambulatory Orders Citalopram Hydrobromide [Celexa] 20 mg PO BEDTIME 11/03/18 Clonidine HCl 0.1 mg PO Q8HR PRN 11/03/18 Insulin Glargine [Lantus Solostar] 10 unit SC DAILY 11/03/18 Isosorbide Mononitrate [Isosorbide Mononitrate ER] 60 mg PO DAILY #30 tab 11/03/18 Donepezil Hydrochloride [Donepezil HCl] 10 mg PO BEDTIME 02/20/19 Epinephrine (Anaphylaxis) [Epinephrine] 0.3 mg IM Q12HR PRN 02/20/19 Memantine HCl 5 mg PO BID 02/20/19 Aspirin [Aspirin Low Strength] 81 mg PO DAILY 02/23/19 Carvedilol [Coreg] 6.25 mg PO BID 02/23/19 Cetirizine HCl 5 mg PO BEDTIME 02/23/19 Insulin Lispro [Humalog Kwikpen] See Protocol SC ACHS 02/23/19 Insulin Lispro [Humalog] 2 unit SUBCU TID 02/23/19 Nitroglycerin 0.4 mg Tab [Nitrostat] 0.4 mg SL Q5MIN PRN 02/23/19 Calcitriol 0.25 mcg PO MOTUWETH 03/02/19 Apixaban [Eliquis] 2.5 mg PO BID 08/02/19 Benzonatate 100 mg PO Q8HR PRN 08/02/19 Guaifenesin [Guaifenesin ER] 600 mg PO TID 08/02/19 Spironolactone 12.5 mg PO DAILY 08/02/19 Tramadol HCl 50 mg PO Q6HR PRN 08/02/19 Ipratropium/Albuterol [Duoneb] 3 ml NEB Q4HR PRN 10/22/19 Olmesartan Medoxomil 10 mg PO DAILY 10/22/19 predniSONE 10 mg PO BID 01/01/20 Azithromycin Tab [Zithromax Tab] 250 mg PO QD #4 tab 01/07/20 Bifidobacterium Infantis [Align] 4 mg PO BID #30 cap 01/07/20 Cefdinir 300 mg PO BID #10 capsule 01/07/20 Acetaminophen [Tylenol] 1,000 mg PO Q6H PRN 01/12/20 Ascorbic Acid [Vitamin C] 1,000 mg PO DAILY 01/12/20 Cholecalciferol [Vitamin D-3] 10,000 unit PO DAILY 01/12/20 Guaifenesin [Mucinex] 800 mg PO Q8H 01/12/20 Zinc 50 mg PO DAILY 01/12/20 Review of Systems - Review of Systems Unable to Obtain Due To: dementia Past Medical History (General) - Patient Medical History Hx Seizures: No Hx Stroke: No Hx Dementia: Yes Hx Asthma: No Hx of COPD: No Hx Cardiac Disorders: Yes - Hx MA; Hx DVT, AFIB Hx Congestive Heart Failure: Yes Hx Pacemaker: No Hx Hypertension: No Hx Thyroid Disease: No Hx Diabetes: Yes Hx Gastroesophageal Reflux: Yes Hx Renal Disease: No 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 Hx of HIV: No Hx Hepatitis C: No Hx MRSA: No - Vaccination History Hx Tetanus, Diphtheria Vaccination: No Hx Influenza Vaccination: Yes Hx Pneumococcal Vaccination: Yes - Social History Hx Tobacco Use: No Hx Chewing Tobacco Use: No Hx Alcohol Use: No Hx Substance Use: No Hx Substance Use Treatment: No Hx Depression: No Hx Physical Abuse: No Hx Emotional Abuse: No Family Medical History - Family History Mother Family History: Unknown Living Status: Physical Exam - Physical Exam General Appearance: Frail, Lethargic, Ill Appearing Ears, Nose, Throat: normal ENT inspection Neck: non-tender, full range of motion Respiratory: no respiratory distress, no accessory muscle use, decreased breath sounds, crackles, rales, rhonchi Cardiovascular/Chest: normal peripheral pulses, irregularly irregular Gastrointestinal/Abdominal: normal bowel sounds, non tender, soft Neurologic: other - obtunded, withdraws to pain, moves all four extremities Progress - Progress Progress: 01/12/20 13:13 Discussed with patient's daughter who states that he is conversant at baseline although confused. She states that yesterday he had a "good day" and was able to eat and take his medications. Today he is no longer responding to staff and he is not eating or drinking. Discussed with [employer] who will admit for mental status change, COVID-19 pneumonia. - Results/Orders Results/Orders: 01/12/20 10:51 Sodium Chloride 0.9% (Flush) [Saline Flush Syringe] 10 ml IV PRN PRN 01/12/20 10:52 EKG Stat Pulse Ox Stat 01/12/20 11:28 CARDIAC ENZYME GROUP Stat COMPLETE METABOLIC PROFILE Stat URINE CULTURE W/COLONY COUNT Stat 01/12/20 11:33 BLOOD CULTURE Stat 01/12/20 13:00 LACTIC ACID Q2H Laboratory Results - last 24 hr 01/12/20 01/12/20 01/12/20 11:28 11:28 11:28 WBC 6.6 RBC 5.92 Hgb 16.7 Hct 50.2 MCV 84.8 MCH 28.3 MCHC 33.3 RDW 15.7 H Plt Count 226 MPV 7.8 Absolute Neuts (auto) 5.60 Absolute Lymphs (auto) 0.70 L Absolute Monos (auto) 0.20 Absolute Eos (auto) 0.10 Absolute Basos (auto) 0.00 Neutrophils % 84.9 H Lymphocytes % 9.9 L Monocytes % 3.5 Eosinophils % 1.1 Basophils % 0.6 PT 12.4 H INR 1.25 H PTT (SP) 25.6 Sodium 138 Potassium 4.2 Chloride 110 Carbon Dioxide 22 Anion Gap 10.2 L BUN 46 H Creatinine 1.67 H BUN/Creatinine Ratio 27.5 H Random Glucose 108 H Serum Osmolality 288.1 Lactic Acid Calcium 8.1 L Total Bilirubin 1.0 AST 31 ALT 25 Alkaline Phosphatase 58 Creatine Kinase 16 L CK-MB (CK-2) 2.6 Troponin I 0.57 H* Serum Total Protein 5.7 L Albumin 1.8 L Globulin 3.9 H Albumin/Globulin Ratio 0.5 L Urine Color Urine Appearance Urine pH Ur Specific [place] Urine Protein Urine Glucose (UA) Urine Ketones Urine Blood Urine Nitrite Urine Bilirubin Urine Urobilinogen Ur Leukocyte Esterase Urine RBC Urine WBC Ur Epithelial Cells Amorphous Sediment Urine Bacteria Coarse Granular Casts Urine Mucus 01/12/20 01/12/20 11:28 11:30 WBC RBC Hgb Hct MCV MCH MCHC RDW Plt Count MPV Absolute Neuts (auto) Absolute Lymphs (auto) Absolute Monos (auto) Absolute Eos (auto) Absolute Basos (auto) Neutrophils % Lymphocytes % Monocytes % Eosinophils % Basophils % PT INR PTT (SP) Sodium Potassium Chloride Carbon Dioxide Anion Gap BUN Creatinine BUN/Creatinine Ratio Random Glucose Serum Osmolality Lactic Acid 1.6 Calcium Total Bilirubin AST ALT Alkaline Phosphatase Creatine Kinase CK-MB (CK-2) Troponin I Serum Total Protein Albumin Globulin Albumin/Globulin Ratio Urine Color Yellow Urine Appearance Clear Urine pH 5.0 Ur Specific [place] 1.025 Urine Protein >=300 H Urine Glucose (UA) Negative Urine Ketones Negative Urine Blood Large H Urine Nitrite Negative Urine Bilirubin Negative Urine Urobilinogen 0.2 Ur Leukocyte Esterase Negative Urine RBC >50 H Urine WBC 1-3 Ur Epithelial Cells 1-3 Amorphous Sediment 1+ Urine Bacteria 2+ H Coarse Granular Casts 0-1 Urine Mucus Small - EKG/XRAY/CT EKG: Fibrillation, nonspecific ST T wave Chg Comments: 1127 Atrial fibrillation at 86, no STEMI XRAY: chest Xray Comments: Bilateral infiltrates, worse in upper lobe when compared to prior Departure - Departure Clinical Impression: COVID-19 Altered mental status Qualifiers: Altered mental status type: somnolence Qualified Code(s): R40.0 - Somnolence Time of Disposition: 13:16 Disposition: Admit Patient Departure Forms: ED Discharge - Pt. Copy, Patient Portal Self Enrollment Referrals: Anuj Jean MD [Primary Care Provider] - 1-2 Weeks Home Medications: Ambulatory Orders Citalopram Hydrobromide [Celexa] 20 mg PO BEDTIME 11/03/18 Clonidine HCl 0.1 mg PO Q8HR PRN 11/03/18 Insulin Glargine [Lantus Solostar] 10 unit SC DAILY 11/03/18 Isosorbide Mononitrate [Isosorbide Mononitrate ER] 60 mg PO DAILY #30 tab 11/03/18 Donepezil Hydrochloride [Donepezil HCl] 10 mg PO BEDTIME 02/20/19 Epinephrine (Anaphylaxis) [Epinephrine] 0.3 mg IM Q12HR PRN 02/20/19 Memantine HCl 5 mg PO BID 02/20/19 Aspirin [Aspirin Low Strength] 81 mg PO DAILY 02/23/19 Carvedilol [Coreg] 6.25 mg PO BID 02/23/19 Cetirizine HCl 5 mg PO BEDTIME 02/23/19 Insulin Lispro [Humalog Kwikpen] See Protocol SC ACHS 02/23/19 Insulin Lispro [Humalog] 2 unit SUBCU TID 02/23/19 Nitroglycerin 0.4 mg Tab [Nitrostat] 0.4 mg SL Q5MIN PRN 02/23/19 Calcitriol 0.25 mcg PO MOTUWETH 03/02/19 Apixaban [Eliquis] 2.5 mg PO BID 08/02/19 Benzonatate 100 mg PO Q8HR PRN 08/02/19 Guaifenesin [Guaifenesin ER] 600 mg PO TID 08/02/19 Spironolactone 12.5 mg PO DAILY 08/02/19 Tramadol HCl 50 mg PO Q6HR PRN 08/02/19 Ipratropium/Albuterol [Duoneb] 3 ml NEB Q4HR PRN 10/22/19 Olmesartan Medoxomil 10 mg PO DAILY 10/22/19 predniSONE 10 mg PO BID 01/01/20 Azithromycin Tab [Zithromax Tab] 250 mg PO QD #4 tab 01/07/20 Bifidobacterium Infantis [Align] 4 mg PO BID #30 cap 01/07/20 Cefdinir 300 mg PO BID #10 capsule 01/07/20 Acetaminophen [Tylenol] 1,000 mg PO Q6H PRN 01/12/20 Ascorbic Acid [Vitamin C] 1,000 mg PO DAILY 01/12/20 Cholecalciferol [Vitamin D-3] 10,000 unit PO DAILY 01/12/20 Guaifenesin [Mucinex] 800 mg PO Q8H 01/12/20 Zinc 50 mg PO DAILY 01/12/20 Decision To Admit - Decistion To Admit Decision to Admit Reason: Admit from ER Decision to Admit Date: 01/12/20 Decision to Admit Time: 13:16
--- NOTE | 2020-01-12 11:31 | RAD ---
Portable chest INDICATION: Cough shortness of breath COMPARISON: December 2015 IMPRESSION: Borderline cardiomegaly. Extensive infiltrates/edema slightly worsened in the upper lobe but slightly improved in the right base. No large effusion or pneumothorax. Surgical changes with clips bilateral neck. No additional interval change. Electronically signed by: J Carlos Christie MD 01/12/2020 11:29 AM CDT
[2020-01-12] MEDS ORDERED: CEFEPIME 2 GM in SODIUM CHL 0.9% 100ML MINI-BAG 100 ML IVPB ONE (11:41)
--- NOTE | 2020-01-12 14:09 | HP ---
SUPERVISING PHYSICIAN: Neftaly Rivera M.D. CHIEF COMPLAINT: Altered mental status and hypoxia. HISTORY OF PRESENT ILLNESS: This is an 84 year-old male patient who is a resident of [facility]. He had actually been in the hospital about a week ago for COVID pneumonia and was discharged on antibiotics and steroids. He was brought to the Emergency Room today because he was less responsive to staff and he has not been eating or drinking any food or fluids since he was discharged back to the care home. He has a significant history of dementia but is usually very verbal and has not done anything but moan in the last few days. There were also concerns that the patient was not eating or drinking. In the Emergency Room, his initial vital signs were temp 98.2, heart rate 66, respiratory rate of 18, O2 saturation of 94% on 3 liters. His heart rate did go up into the upper 90s and his respiratory rate went up to the mid 20s which was about 22 to 24 breaths per minute and his oxygen saturation went down to the upper 80s, with his typical 2 liters nasal cannula he was having to use 3 liters nasal cannula to keep his oxygen saturations in the low 90s. Labs were done and his CBC was unremarkable with the exception of his lymphocytes were low at 0.7. D-dimer was elevated at 3100. On discharge 5 days ago his D-dimer was 279, fibrinogen was 352. Electrolytes were basically within normal limits. BUN was 46, creatinine is 1.67 which is about baseline. Lactic acid was 1.6, calcium low at 8.1. LDH was 310 and creatinine kinase was 16. Troponin was 0.57. He does have a chronically high troponin most likely due to his renal failure. When he left the hospital 5 days ago it was 0.22, but was as high as 0.33. C reactive protein was 5.8. Urinalysis showed greater than 300 urine protein with a large amount of urine blood, greater than 50 urine RBCs and 2+ urine bacteria. Chest x-ray showed borderline cardiomegaly, extensive infiltrates/edema slightly worsened in the upper lobes but slightly improved in the right base. No large effusion or pneumothorax. Blood cultures were drawn. Urine culture was ordered. He was given Cefepime in the Emergency Room. I was called for admission for altered mental status and COVID-19 pneumonia. PAST MEDICAL HISTORY: 1. Chronic renal insufficiency with baseline creatinine of about 1.82. 2. Chronically elevated troponins most likely due to renal failure. 3. Multiple removal of skin cancers. 4. Chronic constipation. 5. Diabetes mellitus type 2. 6. Hyperlipidemia. 7. Hypertension. 8. Dementia. 9. Myocardial infarction. PAST SURGICAL HISTORY: 1. Multiple skin cancer removals. CURRENT MEDICATIONS: Per the EMR and awaiting verification. ALLERGIES: HYDROCODONE, PENICILLIN AND NSAIDS. FAMILY HISTORY: Noncontributory. SOCIAL HISTORY: He is a resident of [facility]. He is . He has no history of smoking, ETOH or illicit drug use. REVIEW OF SYSTEMS: Unable to obtain due to the patient's mental status. PHYSICAL EXAMINATION: VITAL SIGNS: Temperature 98.7, heart rate 95, blood pressure 145/73, respiratory rate 24, O2 saturation 92% on 3 liters nasal cannula. GENERAL: This is a 84 year-old male patient who is lying in his hospital bed. He is in slight respiratory distress. HEENT: Normocephalic, atraumatic. Pupils are equal and reactive. Oropharynx is clear. NECK: Supple without mass. RESPIRATORY: Diminished throughout, especially on the right side. There is scattered rhonchi throughout and there is expiratory wheezing in the right upper and bilateral lower lobes. CHEST: There is equal rise and fall of the chest with inspiration and expiration. CARDIOVASCULAR: Regular rate, irregular rhythm. At times he is slightly tachycardic. GASTROINTESTINAL: Abdomen is soft, nondistended, nontender. Bowel sounds are positive. BACK: Deferred. GENITOURINARY: Deferred. EXTREMITIES: No cyanosis, clubbing or edema. NEUROLOGIC: Awake, but somewhat lethargic. He mumbles incoherently and does not answer any questions appropriately. SKIN: Warm and dry. LABORATORY AND FILMS: As per the history of present illness. ASSESSMENT: 1. Sepsis related to COVID-19 pneumonia with a respiratory rate in the mid 20s, heart rate in the upper 90s and requiring extra oxygen to remain O2 saturations in the low 90s. He was recently in the hospital and treated for COVID pneumonia. 2. Altered mental status. 3. Urinary tract infection. 4. Chronic renal failure. His creatinine is at baseline. 5. Diabetes mellitus type 2. 6. Hypertension. 7. Dementia. 8. History of previous myocardial infarction. PLAN: We will admit the patient to the hospital. He will have the pneumonia protocol continued and we will also follow the guidelines for COVID-19 with labs. He will be on routine breathing treatments as well as p.r.n. breathing treatments. He will have aggressive pulmonary hygiene. I will continue his Cefepime and add azithromycin. I have put him on Decadron 4 mg IV and I will restart his home medicines as soon as they are verified. He is on Eliquis which should be sufficient for his DVT prophylaxis and I have put him on Pantoprazole for ulcer prophylaxis. I will also give him some judicious fluids overnight. We will monitor his eating. I have ordered a soft diet. Hopefully we can get him to eat some food and take some fluids. He is on sliding scale insulin per protocol. I have ordered labs for in the morning. Will continue to monitor closely and follow as needed. #[id number] [facility]
[2020-01-12] MEDS ORDERED: traMADol HCL 50 MG TAB PO PRN (14:52)
[2020-01-12] MEDS ORDERED: IPRATROPIUM/ALBUTEROL 3 ML VIAL NEB PRN (14:52)
[2020-01-12] MEDS ORDERED: IV SET AND CAP CHANGE INJ INJ SCH (15:00)
[2020-01-12] MEDS ORDERED: DEX 5% W/NACL 0.45% 1000ML 1,000 ML IVS PRN (15:00)
[2020-01-12] MEDS ORDERED: AZITHROMYCIN 250 MG TAB PO SCH (15:00)
[2020-01-12] MEDS ORDERED: ONDANSETRON INJ 4 MG/2 ML VIAL IV PRN (15:00)
[2020-01-12] MEDS ORDERED: DEXTROSE 50% 25 GM/50 ML SYG IV PRN (15:07)
[2020-01-12] MEDS ORDERED: GLUCAGON INJ 1 MG VIAL SUBCU PRN (15:07)
[2020-01-12] MEDS ORDERED: guaiFENesin ER TAB 600 MG TAB ONE (15:44)
[2020-01-12] MEDS ORDERED: AZITHROMYCIN 250 MG TAB PO ONE (15:46)
[2020-01-12] MEDS: guaiFENesin ER TAB 600 MG TAB PO SCH ×2 (15:48→20:53)
[2020-01-12] MEDS: IPRATROPIUM/ALBUTEROL 3 ML VIAL INH SCH ×2 (17:09→20:05)
[2020-01-12] MEDS: INSULIN LISPRO 100 UNITS/ML PEN SUBCU SCH ×2 (18:11→22:42)
[2020-01-12] MEDS ORDERED: BIFIDOBACTERIUM INFANTIS 4 MG CAP ONE (19:38)
[2020-01-12] MEDS ORDERED: predniSONE 10 MG TAB ONE (19:39)
[2020-01-12] MEDS ORDERED: CARVEDILOL 3.125 MG TAB ONE (19:39)
[2020-01-12] MEDS ORDERED: CETIRIZINE HCL 10 MG TAB PO ONE (19:39)
[2020-01-12] MEDS ORDERED: CITALOPRAM HBR 20 MG TAB ONE (19:39)
[2020-01-12] MEDS ORDERED: MEMANTINE 10 MG TAB ONE (19:39)
[2020-01-12] MEDS ORDERED: CEFEPIME 2 GM VIAL ONE (19:40)
[2020-01-12] MEDS ORDERED: PANTOPRAZOLE SODIUM IV 40 MG VIAL ONE (19:40)
[2020-01-12] MEDS ORDERED: SODIUM CHLORIDE 0.9% (FLUSH) 10 ML SYG ONE (19:40)
[2020-01-12] MEDS ORDERED: APIXABAN 5 MG TAB PO ONE (19:40)
[2020-01-12] MEDS ORDERED: SODIUM CHL 0.9% 50ML MIN-BAG+ 50 ML IVPB ONE (19:40)
[2020-01-12] MEDS: CARVEDILOL 3.125 MG TAB PO SCH (20:53)
[2020-01-12] MEDS: BIFIDOBACTERIUM INFANTIS 4 MG CAP PO SCH (20:53)
[2020-01-12] MEDS: APIXABAN 5 MG TAB PO SCH (20:53)
[2020-01-12] MEDS: MEMANTINE 10 MG TAB PO SCH (20:53)
[2020-01-12] MEDS: predniSONE 10 MG TAB PO SCH (20:53)
[2020-01-12] MEDS: DEXAMETHASONE INJ 4 MG/ML VIAL IV SCH (20:54)
[2020-01-12] MEDS ORDERED: DONEPEZIL HCL 5 MG TAB ONE ×2 (20:55→20:57)
[2020-01-12] MEDS: CEFEPIME 2 GM in SODIUM CHL 0.9% 50ML MIN-BAG+ 50 ML IVPB SCH (20:57)
[2020-01-12] MEDS ORDERED: CETIRIZINE HCL 10 MG TAB PO SCH (21:00)
[2020-01-12] MEDS ORDERED: CITALOPRAM HBR 20 MG TAB PO SCH (21:00)
[2020-01-12] MEDS ORDERED: DONEPEZIL HCL 5 MG TAB PO SCH (21:00)
[2020-01-12] MEDS: SODIUM CHLORIDE 0.9% (FLUSH) 10 ML SYG IV SCH (21:03)
[2020-01-13] MEDS: IPRATROPIUM/ALBUTEROL 3 ML VIAL INH SCH ×5 (00:30→16:55)
[2020-01-13] MEDS ORDERED: PANTOPRAZOLE SODIUM IV 40 MG VIAL IV SCH (06:30)
--- NOTE | 2020-01-13 07:53 | RAD ---
EXAM DESCRIPTION: XR Chest, one view CLINICAL HISTORY: Pneumonia. COMPARISON: January 12, 2020 FINDINGS: Multiple surgical clips are noted in the neck bilaterally. Mild cardiomegaly.. The pulmonary vascularity is mildly congested. Bilateral interstitial infiltrates and right basilar opacity are seen. Discounting for technical factors no remarkable interval change. No pneumothorax or pleural effusion is seen. The osseous structures appear unremarkable. IMPRESSION: Perihilar and bibasilar interstitial infiltrates. No interval change. Electronically signed by: Melony Oquendo MD 01/13/2020 7:52 AM CDT
--- NOTE | 2020-01-13 07:56 | CT ---
EXAM DESCRIPTION: CT head without contrast. CLINICAL HISTORY: AMS . COMPARISON: 07/26/2019 TECHNIQUE: Contiguous axial sections are obtained as per protocol. Sagittal and coronal reformations are submitted Automatic exposure control (AEC), mA and/or kV adjustment by patient size, and/or iterative reconstructive technique was used, per departmental dose optimization program, during the performance of the CT examination. FINDINGS: Mild generalized cortical atrophy is noted. An area of encephalomalacic is seen in the right medial inferior frontal lobe. Periventricular deep white matter demyelinating changes are noted dense calcifications are seen in carotid siphon bilaterally. Ventricles, sulci and cisterns appear normal. Normal conroy-white matter differentiation is noted. No evidence of intra or extra-axial hemorrhage, hematoma, mass, mass effect or midline shift is noted. The posterior fossa structures appear normal. The bony calvarium appears intact. The soft tissues of the scalp appear unremarkable. Normal appearance of the orbits are noted. The paranasal sinuses and mastoids appear normal. IMPRESSION: No acute findings or interval change. Electronically signed by: Melony Oquendo MD 01/13/2020 7:54 AM CDT
[2020-01-13] MEDS: INSULIN LISPRO 100 UNITS/ML PEN SUBCU SCH ×3 (08:34→16:22)
[2020-01-13] MEDS ORDERED: AZITHROMYCIN IV 500 MG in SODIUM CHLORIDE 0.9% 250ML 250 ML IVPB SCH (09:00)
[2020-01-13] MEDS ORDERED: ASPIRIN (CHEWABLE) 81 MG TAB PO SCH (09:00)
[2020-01-13] MEDS ORDERED: SPIRONOLACTONE 25 MG TAB PO SCH (09:00)
[2020-01-13] MEDS ORDERED: ISOSORBIDE MONONITRATE (IMDUR) 30 MG TAB PO SCH (09:00)
[2020-01-13] MEDS ORDERED: LOSARTAN POTASSIUM 25 MG TAB PO SCH (09:00)
[2020-01-13] MEDS: DEXAMETHASONE INJ 4 MG/ML VIAL IV SCH (09:22)
[2020-01-13] MEDS: MEMANTINE 10 MG TAB PO SCH (09:22)
[2020-01-13] MEDS: predniSONE 10 MG TAB PO SCH (09:23)
[2020-01-13] MEDS: guaiFENesin ER TAB 600 MG TAB PO SCH ×2 (09:23→16:22)
[2020-01-13] MEDS: BIFIDOBACTERIUM INFANTIS 4 MG CAP PO SCH (09:23)
[2020-01-13] MEDS: SODIUM CHLORIDE 0.9% (FLUSH) 10 ML SYG IV SCH (09:24)
[2020-01-13] MEDS: APIXABAN 5 MG TAB PO SCH (09:24)
[2020-01-13] MEDS: CARVEDILOL 3.125 MG TAB PO SCH (09:24)
[2020-01-13] MEDS: CEFEPIME 2 GM in SODIUM CHL 0.9% 50ML MIN-BAG+ 50 ML IVPB SCH (09:33)
[2020-01-13 11:46] VITALS: O2SAT 96
[2020-01-13] MEDS ORDERED: MORPHINE SULFATE INJ 10 MG/ML VIAL IV PRN (12:40)
--- NOTE | 2020-01-13 14:39 | PN ---
SUPERVISING PHYSICIAN: Neftaly Rivera M.D. DATE: 01/13/20 SUBJECTIVE: The patient is lying in bed. He is much less responsive. According to nursing, he will not open his mouth to take food and is only responding to noxious stimuli. He does grimace but does not follow commands. He did require a Venturi mask last night due to his oxygen saturation dropping. OBJECTIVE: VITAL SIGNS: Temperature 97.4, heart rate 68, blood pressure 123/75, respiratory rate 20, O2 saturation 96% on a Venturi mask and nasal cannula. RESPIRATORY: Diminished breath sounds throughout. CARDIAC: Regular rate and rhythm. NEUROLOGIC: He is lethargic almost to the point of being obtunded. He does not follow commands. LABORATORY: CBC is basically unremarkable with the exception of he has a left shift on his differential. Fibrinogen is 391, D-dimer is slightly improved to 2,540. Electrolytes are basically within normal limits. BUN 45, creatinine 1.52, calcium 7.9. Bilirubin 1.3. Troponin is 0.53 and CRP is 7.4. Preliminary blood cultures show no growth after 24 hours. Preliminary urine culture shows no growth after 24 hours. Chest x-ray shows perihilar and bibasilar interstitial infiltrate. No interval change. Head CT shows no acute findings or interval change. All other labs and films have been reviewed via the EMR. ASSESSMENT: 1. Sepsis related to COVID-19 pneumonia with a respiratory rate in the mid 20s, heart rate in the upper 90s and requiring extra oxygen to remain O2 saturations in the low 90s. He was recently in the hospital and treated for COVID pneumonia. 2. Altered mental status. 3. Urinary tract infection. 4. Chronic renal failure. His creatinine is at baseline. 5. Diabetes mellitus type 2. 6. Hypertension. 7. Dementia. 8. History of previous myocardial infarction. PLAN: We will continue present supportive care. The patient's prognosis is very poor. I spoke with his daughter, Kaelyn Martin, who is his medical Power of [employer]. I discussed the patient's poor prognosis as well as his condition. She has requested that [facility] call her for possible admission. She would like to keep him in the hospital if at all possible. I have relayed that information to [facility]. I have ordered some routine labs for in the morning. Hopefully the patient can be changed to inpatient hospice today or tomorrow. Will continue to monitor closely and follow as needed. #[id number] [facility]
[2020-01-13 17:22] VITALS: BP 130/75; TEMP 97.9
--- NOTE | 2020-01-13 21:04 | DS ---
SUPERVISING PHYSICIAN: Neftaly Rivera M.D. DISCHARGE DIAGNOSIS: 1. Sepsis related to COVID-19 pneumonia with a respiratory rate in the mid 20s, heart rate in the upper 90s and requiring extra oxygen to remain O2 saturations in the low 90s. He had recently been in the hospital and treated for COVID pneumonia about 1 week ago. 2. Altered mental status. 3. Urinary tract infection. 4. Chronic renal failure. His creatinine is at baseline. 5. Diabetes mellitus type 2. 6. Hypertension. 7. Dementia. 8. History of previous myocardial infarction. HISTORY OF PRESENT ILLNESS: This is an 84 year-old male patient who resides at [facility]. He has actually been in the hospital back in October and tested negative for COVID. He was admitted to the Emergency Room approximately 2 weeks ago and left about a week ago. This time he was diagnosed with COVID pneumonia. He was discharged on antibiotics and steroids. He was sent to the Emergency Room due to responsiveness to staff. He has not been eating or drinking any food or fluids since he was discharged [facility] to the [facility]. He has a significant history of dementia but is usually very verbal and has not done anything but moan in the last few days. There were also concerns that the patient was not eating or drinking. After his workup in the Emergency Room, he was actually admitted for hydration and to resume his IV antibiotics and steroids. HOSPITAL COURSE: The patient remained poorly responsive to care. At times he would be somewhat more alert and would say a few phrases, but he was unable to answer any questions appropriately. His vital signs and lab were basically stable with the exception of his COVID labs. He had neuro checks as well as Cefepime and azithromycin. He is also on Decadron IV. His Eliquis was continued as well as some of his other home medications. The patient refused to eat and he would not open his mouth even when he was trying to be fed. He did get some fluids. Due to his very poor prognosis, I spoke with his daughter at length this morning, his medical Power of [employer]. We discussed his declining condition and she wanted [facility] to call her as she was interested in switching him from inpatient status to a hospice admission. I called and relayed the message to [facility]. The patient's medical POA was contacted and she has decided that he will be placed in hospice care being managed by [facility]. He will be discharged from the Acute Care setting and readmitted to the hospice setting in the hospital. DISCHARGE PLAN: The patient will be discharged from the Acute Care setting in the hospital and readmitted to hospice. His orders will be per [facility]. He is a patient of Dr. Anuj Jean and I have also let Dr. Jean know of this change. DISCHARGE MEDICATIONS: Per hospice guidelines. #[id number] MTDD
[2020-01-15] MEDS ORDERED: CALCITRIOL 0.25 MCG CAP PO SCH (09:00)
== END 2020-01-13 16:20 | disposition hospice, inpatient (51) ==
LOC: ER 10:37 → MS 14:08
PROVIDERS: ADMIT Nurse Practitioner Acute Care; ATTEND Nurse Practitioner Acute Care
DX: A41.89 Other specified sepsis (principal); U07.1 COVID-19; J12.89 Other viral pneumonia; R41.82 Altered mental status, unspecified; N39.0 Urinary tract infection, site not specified; I12.9 Hypertensive chronic kidney disease with stage 1 through stage 4 chronic kidney disease, or unspecified chronic kidney disease; E11.22 Type 2 diabetes mellitus with diabetic chronic kidney disease; N18.9 Chronic kidney disease, unspecified; F03.90 Unspecified dementia, unspecified severity, without behavioral disturbance, psychotic disturbance, mood disturbance, and anxiety; R09.02 Hypoxemia; E78.5 Hyperlipidemia, unspecified; I25.2 Old myocardial infarction; Z66 Do not resuscitate; Z79.4 Long term (current) use of insulin; Z79.01 Long term (current) use of anticoagulants; Z79.82 Long term (current) use of aspirin; Z79.899 Other long term (current) drug therapy; Z88.0 Allergy status to penicillin; Z88.5 Allergy status to narcotic agent; Z88.8 Allergy status to other drugs, medicaments and biological substances; Z86.718 Personal history of other venous thrombosis and embolism; Z85.828 Personal history of other malignant neoplasm of skin
CPT/HCPCS: 96366; 96365; 96375 ×2; 96376; 96372; Q0144; J1100 ×2; J2060; J7512 ×2; J7050 ×4; J0456; A4216 ×3; J7620 ×7; J0692 ×3; J1815; 85379 ×2; 82553; 80053 ×2; 87086; 82948 ×5; 36415 ×5; 85384 ×2; 81001; 86140 ×2; 85025 ×2; 82550 ×2; 87040 ×2; 83615; 83735; 85730; 85610; 84484 ×2; 36416 ×4; 83605; 71045 ×2; 70450; 94640 ×7; 99285; 93005

== ENCOUNTER 2020-01-13 17:02 | Inpatient (IN) | payer OTHER ==
[2020-01-13] MEDS ORDERED: SODIUM CHLORIDE 0.9% (FLUSH) 10 ML SYG IV PRN (17:14)
[2020-01-13] MEDS ORDERED: ONDANSETRON INJ 4 MG/2 ML VIAL IV PRN (17:28)
[2020-01-13] MEDS ORDERED: IV SET AND CAP CHANGE INJ INJ SCH (17:30)
--- NOTE | 2020-01-13 20:51 | HP ---
SUPERVISING PHYSICIAN: Neftaly Rivera M.D. HISTORY OF PRESENT ILLNESS: This is an 84 year-old male patient who is a resident of [facility]. He had actually been in the hospital back in October for pneumonia. He tested COVID negative at that time. He was admitted to the hospital about 2 weeks ago and this time tested positive for COVID-19 pneumonia. He has a history of severe dementia. He was discharged last week back to the facility. He failed to improve after discharge and his mental status became more altered. He did not eat or drink anything. He was sent back to [facility] with antibiotics, steroids and breathing treatments. The nurses at [facility] were concerned with his deteriorating state. They talked to his daughter and they decided to send him back to the hospital. Yesterday, he was admitted to the hospital for altered mental status and COVID-19 pneumonia. The patient's prognosis was very poor. His daughter decided that he would be best served with hospice, so the patient was discharged from the Acute Care setting and readmitted to hospice managed by [facility]. Orders will be per their protocol. PAST MEDICAL HISTORY: 1. Chronic renal insufficiency. 2. Chronically elevated troponins most likely due to renal failure. 3. Multiple removal of skin cancers. 4. Chronic constipation. 5. Diabetes mellitus type 2. 6. Hyperlipidemia. 7. Hypertension. 8. Dementia. 9. Myocardial infarction. PAST SURGICAL HISTORY: 1. Multiple skin cancer removals. CURRENT MEDICATIONS: Per hospice protocol. ALLERGIES: HYDROCODONE, PENICILLIN AND NSAIDS. FAMILY HISTORY: Noncontributory. SOCIAL HISTORY: He is a resident of [facility]. He is . There is no history of smoking, ETOH or illicit drug use. REVIEW OF SYSTEMS: Unable to obtain due to the patient's mental status. PHYSICAL EXAMINATION: VITAL SIGNS: Temperature 97.9, heart rate 75, blood pressure 130/75, respiratory rate 18, O2 saturation 96% on 3 liters nasal cannula. GENERAL: This is an 84 year-old male patient who looks moderately sick lying in his hospital bed. RESPIRATORY: Diminished throughout with a few scattered rhonchi. CARDIOVASCULAR: Regular rate and rhythm. GASTROINTESTINAL: Abdomen is soft, nondistended. Bowel sounds are positive. NEUROLOGIC: He is awake. At times he is slightly obtunded. Other times he is more lethargic and he yells out sometimes incoherently. LABORATORY AND FILMS: There are no labs or films to report at this time. ASSESSMENT: 1. COVID-19 pneumonia with multiple hospital admissions in the last 2 months. 2. Severe dementia. PLAN: The patient has been admitted to hospice inpatient. He will be managed as well as his medication and orders will be per [facility] protocol. His doctor is Dr. Anuj Jean and I have informed him of the patient's hospice status. We will follow the patient as needed. [facility][id number] [facility]
[2020-01-13] MEDS: MORPHINE SULFATE INJ 10 MG/ML VIAL IV PRN (23:13)
[2020-01-14] MEDS: MORPHINE SULFATE INJ 10 MG/ML VIAL IV PRN ×2 (08:24→22:09)
[2020-01-15] MEDS: MORPHINE SULFATE INJ 10 MG/ML VIAL IV PRN ×3 (10:18→21:55)
--- NOTE | 2020-01-15 21:01 | PN ---
SUPERVISING PHYSICIAN: Bryant Gutierrez M.D. DATE: 01/15/20 SUBJECTIVE: The patient remains in inpatient hospice status. Essentially unchanged. His vital signs tend to be fairly stable, although he is mentally not responsive. Nurses report that he is not having a lot of changes. He stays comfortable. OBJECTIVE: VITAL SIGNS: Temperature 97.7, pulse 92, blood pressure 126/74, respirations 12 to 14, satting 92% on nasal cannula at 2 liters. GENERAL: The patient appears to be resting comfortably. CHEST: Lung sounds remain diminished with continued rhonchi. HEART: Regular rate and rhythm. NEUROLOGIC: He remains slightly obtunded. He will open his eyes but does not really answer any questions. LABORATORY AND RADIOLOGY: No additional studies. ASSESSMENT: 1. COVID-19 pneumonia with multiple hospital admissions in the last 2 months. 2. Severe dementia. PLAN: The patient will continue on inpatient hospice for care and comfort measures through [facility]. I did talk with the hospice nurse. They are going to talk to Dr. Jean in regards to the patient's hospice status and see if maybe he can be transferred back to [facility] for hospice care there. Until then will continue to monitor and treat as needed. #[id number] MTDD
[2020-01-15 21:22] VITALS: BP 140/80; TEMP 98.3; O2SAT 82
--- NOTE | 2020-01-19 17:45 | DS ---
SUPERVISING PHYSICIAN: Bryant Gutierrez M.D. ADMISSION DIAGNOSIS: 1. COVID-19 pneumonia with multiple hospital admissions in the last 2 months. 2. Severe dementia. DISCHARGE DIAGNOSIS: 1. Cardiopulmonary collapse and ultimate expiration secondary to COVID pneumonia with a history of severe dementia on hospice for care and comfort. REASON FOR HOSPITALIZATION: This is an 84 year-old male patient who is a resident of [facility]. He had actually been in the hospital back in October for pneumonia. He tested COVID negative at that time. He was admitted to the hospital about 2 weeks ago and this time tested positive for COVID-19 pneumonia. He has a history of severe dementia. He was discharged last week back to the facility. He failed to improve after discharge and his mental status became more altered. He did not eat or drink anything. He was sent back to [facility] with antibiotics, steroids and breathing treatments. The nurses at [facility] were concerned with his deteriorating state. They talked to his daughter and they decided to send him back to the hospital. Yesterday, he was admitted to the hospital for altered mental status and COVID-19 pneumonia. The patient's prognosis was very poor. His daughter decided that he would be best served with hospice, so the patient was discharged from the Acute Care setting and readmitted to hospice managed by [facility]. Orders will be per their protocol. LABORATORY: There are no diagnostic studies. HOSPITAL COURSE: Mr. Ross was admitted into hospice on 01/13/20 following multiple hospital admissions and treatment for COVID pneumonia. He resided at [facility] where there are multiple cases. The patient was advanced age and failed to respond clinically on last admission, and after long discussion with the family, the [employer], his daughter, decided that the best action at that point was to admit to care and comfort through hospice. The patient was admitted into hospice for care and comfort measures, and ultimately from complications from COVID pneumonia as noted above. PLAN: The patient on 01/16/20 and was pronounced. His remains were released as instructed to [facility]. was not unexpected due to the patient's advanced age and complications from COVID pneumonia. #[id number] [facility]
== END 2020-01-16 03:15 | disposition expired | DRG 177 ==
LOC: MS 17:02
PROVIDERS: ADMIT Nurse Practitioner Acute Care; ATTEND Nurse Practitioner Family
DX: U07.1 COVID-19 (principal); J12.89 Other viral pneumonia; Z66 Do not resuscitate; Z51.5 Encounter for palliative care; Z87.01 Personal history of pneumonia (recurrent); F03.90 Unspecified dementia, unspecified severity, without behavioral disturbance, psychotic disturbance, mood disturbance, and anxiety; I12.9 Hypertensive chronic kidney disease with stage 1 through stage 4 chronic kidney disease, or unspecified chronic kidney disease; N18.9 Chronic kidney disease, unspecified; Z85.828 Personal history of other malignant neoplasm of skin; E11.22 Type 2 diabetes mellitus with diabetic chronic kidney disease; E78.5 Hyperlipidemia, unspecified; I25.2 Old myocardial infarction; Z88.5 Allergy status to narcotic agent; Z88.6 Allergy status to analgesic agent; Z88.0 Allergy status to penicillin; Z91.018 Allergy to other foods